=== PATIENT | male | born 1955 | race Caucasian/White ===

== ENCOUNTER 2020-07-15 15:32 | Outpatient (REF) | payer OTHER, SELFPAY ==
[2020-07-15 16:11] LABS: Glucose Urine UA NEG (NEG); Leukocyte Esterase Urine TRACE (NEG); Nitrite Urine NEG (NEG); Specific Gravity - Urine 1.015 (1.005-1.025); Urine Blood NEG (NEG); Urine Ketones NEG (NEG); Urine Protein NEG (NEG-TRACE)
[2020-07-15 16:12] LABS: Appearance Urine CLEAR; Color Urine YELLOW
[2020-07-15 16:24] LABS: Bacteria Urine TRACE /LPF; RBC Urine 0 /HPF (0); WBC Urine 0-2 /HPF (0-4)
== END 2020-07-15 15:33 | disposition home or self-care (01) ==
LOC: HO.LAB 15:32
PROVIDERS: PCP Internal Medicine; Visit Provider Internal Medicine
DX: R30.0 Dysuria (principal)
CPT/HCPCS: 81001; 87086

== ENCOUNTER 2021-03-05 06:21 | Outpatient (REF) | payer OTHER, SELFPAY ==
[2021-03-05 07:20] LABS: MANUAL DIFF FLAG NO
[2021-03-05 07:24] LABS: Basophils Percent Auto 0.6 % (0-2); Eosinophils Absolute Auto 0.2 X10*3/uL (0.0-0.4); Eosinophils Percent Auto 2.7 % (0-4); Hemoglobin 13.9 g/dl (14.0-18.0); Imm Gran Abs Auto 0.02 X10*3/uL (0.00-0.03); Imm Gran Pct Auto 0.3 % (0.0-0.4); Lymphocytes Absolute Auto 1.6 X10*3/uL (1.2-4.9); Lymphocytes Percent Auto 23.6 % (20-40); Mean Corpuscular HGB Conc 32.3 g/dl (31.0-36.0); Mean Corpuscular Hemoglobin 27.9 pg (27.0-33.0); Mean Corpuscular Volume 86.3 fL (80-98); Mean Platelet Volume 9.7 fL (9.4-12.4); Monocytes Absolute Auto 0.7 X10*3/uL (0.1-1.2); Monocytes Percent Auto 9.7 % (2-11); Neutrophils Absolute Auto 4.3 X10*3/uL (2.0-8.3); Neutrophils Percent Auto 63.1 % (45-73); Platelet Count 309 X10*3/uL (160-400); Red Blood Count 4.98 X10*6/uL (4.60-5.80); Red Cell Distribution Width 14.3 % (11.0-16.0); White Blood Count 6.8 X10*3/uL (4.8-10.8)
[2021-03-05 07:47] LABS: Alanine Aminotransferase 21 U/L (0-40); Albumin Level 4.2 g/dL (3.5-5.0); Alkaline Phosphatase 72 U/L (39-117); Anion Gap 14 (12-20); Aspartate Amino Transferase 17 U/L (5-37); Bilirubin Total 0.5 mg/dL (0.0-1.0); Blood Urea Nitrogen 18 mg/dL (9-16); Calcium 9.5 mg/dL (8.4-10.2); Carbon Dioxide 24 mmol/L (22-29); Chloride 107 mmol/L (96-108); Cholesterol 175 mg/dL; Estimated Glomerular Filt Rate > 60; Glucose Fasting 105 mg/dL (60-99); HDL Cholesterol 53 mg/dL; LDL Cholesterol Calculated 102 mg/dl; Sodium 140 mmol/L (135-145); Total Protein 6.7 g/dL (6.5-8.0); Triglycerides 103 mg/dL
== END 2021-03-05 06:22 | disposition home or self-care (01) ==
LOC: HO.LAB 06:21
PROVIDERS: Visit Provider Internal Medicine
DX: E78.00 Pure hypercholesterolemia, unspecified (principal); M19.042 Primary osteoarthritis, left hand; M19.041 Primary osteoarthritis, right hand
CPT/HCPCS: 36415; 80053; 80061; 85025

== ENCOUNTER 2021-08-02 14:43 | Outpatient (REF) | payer OTHER, SELFPAY ==
--- NOTE | ~2021-08-02 | XR_ITS ---
EXAMINATION: XR CERVICAL SPINE CLINICAL INFORMATION: Neck pain. Left arm numbness. COMPARISON: None TECHNIQUE: 5 views of the cervical spine were obtained. FINDINGS: No fracture or subluxation. Vertebral body height and alignment maintained. Mild disc space narrowing of C4-C5 and C5-C6 with small endplate osteophytes. No bony neuroforaminal narrowing. The atlantoaxial joint is appropriately aligned. The dens is intact. The prevertebral soft tissues are unremarkable. The visualized lung apices are clear. XR/XR cervical spine 5V IMPRESSION: Mild degenerative change of the mid cervical spine.
== END 2021-08-02 14:44 | disposition home or self-care (01) ==
LOC: HO.XRAY 14:43
PROVIDERS: PCP Internal Medicine; Visit Provider Internal Medicine
DX: M54.2 Cervicalgia (principal); R20.0 Anesthesia of skin
CPT/HCPCS: 72050

== ENCOUNTER 2021-10-25 08:28 | Emergency (ER) | payer OTHER, SELFPAY ==
--- NOTE | ~2021-10-25 | CT_ITS ---
EXAMINATION: CT ANGIOGRAM OF THE CHEST WITH AND WITHOUT CONTRAST (CT PULMONARY ANGIOGRAM FOR PE) CLINICAL INFORMATION: Right-sided pleuritic chest pain COMPARISON: CT chest 08/07/2013 TECHNIQUE: Prior to contrast administration, noncontrast localization images were obtained. Subsequently, multidetector volumetric imaging was performed from the thoracic inlet to below the diaphragms following the administration of 85 mL Omnipaque 350 intravenous contrast. Sagittal, coronal, and MIP oblique sagittal reformatted images were obtained on the CT workstation, uploaded to PACS, and reviewed. This CT examination was performed using dose optimization techniques as appropriate, variously including the following: *Automated exposure control *Adjustment of mA and/or kV according to patient size (this includes techniques or standardized protocols for targeted exams where dose is matched to indication/reason for exam; i.e. extremities or head) *Use of iterative reconstruction technique Total exam dose-length product 414 mGy-cm FINDINGS: QUALITY OF STUDY/CONTRAST BOLUS: Satisfactory. PULMONARY ARTERIES: No evidence of filling defects to suggest central or segmental pulmonary emboli. THORACIC AORTA: No aneurysm or dissection. LUNG: Emphysematous changes in bilateral lungs, more prominent in the upper lobes. Groundglass and patchy airspace opacities in the posterior aspect of bilateral lower lungs, from atelectasis versus inflammatory/infectious process. Trachea and central airway are patent. No suspicious pulmonary nodules are seen. PLEURA: No pleural effusion or pneumothorax. MEDIASTINUM: Normal heart size. No pericardial effusion. No hilar or mediastinal lymphadenopathy. No evidence of septal bowing or right heart strain. CHEST WALL/AXILLA: No axillary or internal mammary lymphadenopathy. OSSEOUS STRUCTURES: No acute or suspicious osseous abnormality. Degenerative changes in the subchondral right glenoid. No acute displaced fractures identified. Sternum and visualized clavicles appear intact. UPPER ABDOMEN: No acute findings seen. Colonic diverticulosis noted. No reflux of contrast into the hepatic veins to suggest elevated right heart pressures. CT/CT angio chest PE protocol IMPRESSION: 1. No evidence of filling defects to suggest central or segmental pulmonary emboli. 2. Prominent bilateral lung emphysema. 3. Groundglass and patchy airspace opacities in the posterior aspect of bilateral lower lungs, could reflect atelectasis or infectious/inflammatory process. VTE: negative
--- NOTE | 2021-10-25 08:37 | ECG_ITS ---
Test Reason : radiating chest pain Blood Pressure : / mmHG Vent. Rate : 079 BPM Atrial Rate : 079 BPM P-R Int : 192 ms QRS Dur : 088 ms QT Int : 376 ms P-R-T Axes : 061 037 040 degrees QTc Int : 431 ms Normal sinus rhythm Normal ECG When compared with ECG of 10-NOV-2017 12:56, No significant change was found Referred By: Generic ED Physician Electronically Signed By:Cleveland Aldrich
[2021-10-25 08:41] VITALS: BP 152/92; PULSE 79; RESP 20; TEMP 36.6; O2SAT 96; BMI 35.2
--- NOTE | 2021-10-25 08:50 | ED_ITS ---
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) Onset (ago): day(s) (3) Prior episodes: No Onset: during rest Pain location: right chest Pain radiation: back Severity: severe Quality: sharp Relieving factors: nothing Exacerbating factors: movement Associated symptoms: dyspnea Treatment prior to arrival: none Related Data Previous Rx's Medication Instructions Recorded doxycycline hyclate 100 mg tablet 100 mg PO BID #14 tab 09/28/20 azithromycin 250 mg tablet See Rx Instructions .ROUTE 10/25/21 .COMPLEX #6 tab cyclobenzaprine 10 mg tablet 10 mg PO TID PRN #14 tab 10/25/21 diazepam 5 mg tablet (Valium) 5 mg PO TID PRN #10 tab 10/25/21 lidocaine 4 % topical patch 1 patch TOPICAL DAILY PRN #10 ea 10/25/21 prednisone 20 mg tablet 20 mg PO DAILY 5 Days #5 tab 10/25/21 Allergies Allergy/AdvReac Type Severity Reaction Status Date / Time shrimp [SHRIMP] Allergy Unknown UNKNOWN Unverified 05/14/20 15:34 Review of Systems Review of Systems: Constitutional : No Weight loss, No Fever, No Chills ENT/Mouth : No sore throat, No Rhinorrhea Eyes: No Eye Pain, No Swelling Cardiovascular : pos Chest Pain, pos SOB, no Dyspnea on Exertion, No Orthopnea, No Edema, No Palpitations Respiratory : No Cough, No Sputum Gastrointestinal : no Nausea, No Vomiting, No Diarrhea, No abdominal Pain, No Hematochezia, No Melena Genitourinary : No Dysuria, No Urinary Frequency Musculoskeletal : No joint pain, No Myalgias, No Joint Swelling Skin : No Skin Lesions, No rash Neuro : No Weakness, No Numbness, No Dizziness, No Headache Psych : No Anxiety/Panic, No Depression Heme/Lymph: No Bruising, No Lymphadenopathy Endocrine : No Polyuria, No Polydipsia All other systems reviewed and are negative [facility] Past Medical History Attestation statement: The following information was validated with the patient. Medical History COPD (chronic obstructive pulmonary disease) Disc disorder of lumbar region DVT (deep venous thrombosis) Hypercholesteremia Prostate CA Skin cancer of face Surgical History (Updated 10/25/21 @ 08:48 by Bowen Patiño) Knee joint replacement status Social History Social History (Updated 10/25/21 @ 09:32 by Mary Gannon DO) Patient Tobacco Use Status: Tobacco use Unknown Advance Directives: Yes Advance Directives Information Provided: Yes Advance Directives on File: No Physical Exam Vital Signs: Vital Signs: Last Vital Signs Temp 98.1 F 10/25/21 11:10 Pulse 68 10/25/21 11:10 Resp 17 10/25/21 11:10 BP 130/78 10/25/21 11:10 Pulse Ox 97 10/25/21 11:10 BMI result Body Mass Index 35.2 Appearance: Alert. Oriented X3. No acute distress. Eyes: Pupils equal, round and reactive to light. ENT: Pharynx normal. Neck: Normal inspection. Neck supple. CVS: Normal heart rate and rhythm. Pulses normal. Respiratory: No respiratory distress. Breath sounds normal. Abdomen: Soft and nontender. Back: some ttp long R scapula area Skin: Skin warm and dry. Normal skin color. Normal skin turgor. Extremities: No lower extremity edema. No calf ttp Neuro: Oriented X 3. No motor deficit. No sensory deficit. Course Course Course Narrative: neg trop and EKG no PE will treat lungs for possible infectious with zpak and steroids stable for DC MDM - Chest Pain MDM Narrative Medical decision making narrative: 66 yo male hx of DVT 2017 only on xarelto x 1 month thought it was related to prior back injury (not post surery), COPD here with R sided sharp chest pain radiating into back - at this time will obtain basic labs, troponin, CTA to r/o PE. IV morphine for pain seems possibly MSK vs VTE ACS seems less likely given atypical nature of his pain Lab Data Result diagrams: 10/25/21 09:13 10/25/21 09:13 Labs: Lab Results 10/25/21 10/25/21 10/25/21 Range/Units 09:13 09:13 09:13 WBC 6.8 (4.8-10.8) X10*3/uL RBC 4.92 (4.60-5.80) X10*6/uL Hgb 14.1 (14.0-18.0) g/dl Hct 43.4 (42.0-52.0) % MCV 88.2 (80.0-98.0) fL MCH 28.7 (27.0-33.0) pg MCHC 32.5 (31.0-36.0) g/dl RDW 13.0 (11.0-16.0) % Plt Count 306 (160-400) X10*3/uL MPV 9.6 (9.4-12.4) fL Immature Gran % (Auto) 0.3 (0.0-0.4) % Neut % (Auto) 71.5 (45-73) % Lymph % (Auto) 17.7 L (20-40) % [place] % (Auto) 8.5 (2-11) % Eos % (Auto) 1.6 (0-4) % Baso % (Auto) 0.4 (0-2) % Lymph # (Auto) 1.2 (1.2-4.9) X10*3/uL [place] # (Auto) 0.6 (0.1-1.2) X10*3/uL Eos # (Auto) 0.1 (0.0-0.4) X10*3/uL Baso # (Auto) 0.0 (0.0-0.2) X10*3/uL Abs Immat Gran (auto) 0.02 (0.00-0.03) X10*3/uL Absolute Neuts (auto) 4.9 (2.0-8.3) x10*3/uL Absolute Nucleated RBC 0.000 (0.0-0.012) X10*3/uL Nucleated RBC % (auto) 0.0 (0.0-0.2) /100WBC PT 9.9 (9.9-13.0) SEC INR 0.9 (0.9-1.1) Sodium 141 (135-145) mmol/L Potassium 4.5 (3.3-5.1) mmol/L Chloride 110 H (96-108) mmol/L Carbon Dioxide 23 (22-29) mmol/L Anion Gap 13 (12-20) BUN 17 H (9-16) mg/dL Creatinine 1.07 (0.5-1.4) mg/dL Estim Creat Clear Calc 79.3 Estimated GFR > 60 Random Glucose 118 H (60-115) mg/dL Calcium 9.2 (8.4-10.2) mg/dL Magnesium 2.5 (1.6-2.6) mg/dL Total Bilirubin 0.4 (0.0-1.0) mg/dL Direct Bilirubin 0.2 (0.0-0.5) mg/dL AST 17 (5-37) U/L ALT 20 (0-40) U/L Alkaline Phosphatase 70 (39-117) U/L Troponin I High Sens (<3.5-35.0) ng/L Total Protein 6.4 L (6.5-8.0) g/dL Albumin 4.2 (3.5-5.0) g/dL COVID-19 (CYNDI) (Negative) COVID-19 Clin Com 10/25/21 10/25/21 Range/Units 09:13 11:06 WBC (4.8-10.8) X10*3/uL RBC (4.60-5.80) X10*6/uL Hgb (14.0-18.0) g/dl Hct (42.0-52.0) % MCV (80.0-98.0) fL MCH (27.0-33.0) pg MCHC (31.0-36.0) g/dl RDW (11.0-16.0) % Plt Count (160-400) X10*3/uL MPV (9.4-12.4) fL Immature Gran % (Auto) (0.0-0.4) % Neut % (Auto) (45-73) % Lymph % (Auto) (20-40) % [place] % (Auto) (2-11) % Eos % (Auto) (0-4) % Baso % (Auto) (0-2) % Lymph # (Auto) (1.2-4.9) X10*3/uL [place] # (Auto) (0.1-1.2) X10*3/uL Eos # (Auto) (0.0-0.4) X10*3/uL Baso # (Auto) (0.0-0.2) X10*3/uL Abs Immat Gran (auto) (0.00-0.03) X10*3/uL Absolute Neuts (auto) (2.0-8.3) x10*3/uL Absolute Nucleated RBC (0.0-0.012) X10*3/uL Nucleated RBC % (auto) (0.0-0.2) /100WBC PT (9.9-13.0) SEC INR (0.9-1.1) Sodium (135-145) mmol/L Potassium (3.3-5.1) mmol/L Chloride (96-108) mmol/L Carbon Dioxide (22-29) mmol/L Anion Gap (12-20) BUN (9-16) mg/dL Creatinine (0.5-1.4) mg/dL Estim Creat Clear Calc Estimated GFR Random Glucose (60-115) mg/dL Calcium (8.4-10.2) mg/dL Magnesium (1.6-2.6) mg/dL Total Bilirubin (0.0-1.0) mg/dL Direct Bilirubin (0.0-0.5) mg/dL AST (5-37) U/L ALT (0-40) U/L Alkaline Phosphatase (39-117) U/L Troponin I High Sens < 3.5 (<3.5-35.0) ng/L Total Protein (6.5-8.0) g/dL Albumin (3.5-5.0) g/dL COVID-19 (CYNDI) Negative (Negative) COVID-19 Clin Com See Note ECG Data ECG #1: Attestation: I personally reviewed and interpreted this ECG as follows: ECG interpretation date: 10/25/21 ECG interpretation time: 08:50 Interpretation: Rate: 79 Rhythm: NSR [place]: normal Normal P waves. Normal CRISTÓBAL. Normal QRS complex. ST T wave : normal no JULIENNE qTC: normal prior studies: no acute ischemia The study has been interpreted contemporaneously by me. . Discharge Plan Discharge Clinical Impression: Atypical chest pain, Atypical pneumonia Patient Disposition: Home, Self-Care Instructions: Chest Pain (ED), Pneumonia (ED) Additional Instructions: return to ED for any worsening symptoms or concerns no PE, COVID swab negative CT/CT angio chest PE protocol IMPRESSION: 1. No evidence of filling defects to suggest central or segmental pulmonary emboli. ? 2. Prominent bilateral lung emphysema. ? 3. Groundglass and patchy airspace opacities in the posterior aspect of bilateral lower lungs, could reflect atelectasis or infectious/inflammatory process. ? VTE: negative Prescriptions: New diazepam [Valium] 5 mg tablet 5 mg PO TID PRN (Reason: muscle spasm) Qty: 10 0RF cyclobenzaprine 10 mg tablet 10 mg PO TID PRN (Reason: muscle spasm) Qty: 14 0RF lidocaine 4 % adhesive patch,medicated 1 patch topical DAILY PRN (Reason: pain) Qty: 10 0RF Rx Instructions: may leave on for up to 12 hrs prednisone 20 mg tablet 20 mg PO DAILY 5 Days Qty: 5 0RF azithromycin 250 mg tablet See Rx Instructions .ROUTE .COMPLEX Qty: 6 0RF Rx Instructions: For 250 mg dose pack: take 500 mg today (day 1), then 250 mg for 4 days (days 2-5) No Action doxycycline hyclate 100 mg tablet 100 mg PO BID Qty: 14 0RF Referrals: Billy Santillan MD [Primary Care Provider] - 2 days (if not better) Stand Alone Forms: Work/School Release
[2021-10-25 09:19] LABS: MANUAL DIFF FLAG NO
[2021-10-25 09:29] LABS: Basophils Percent Auto 0.4 % (0-2); Eosinophils Absolute Auto 0.1 X10*3/uL (0.0-0.4); Eosinophils Percent Auto 1.6 % (0-4); Hematocrit 43.4 % (42.0-52.0); Hemoglobin 14.1 g/dl (14.0-18.0); Imm Gran Abs Auto 0.02 X10*3/uL (0.00-0.03); Imm Gran Pct Auto 0.3 % (0.0-0.4); Lymphocytes Absolute Auto 1.2 X10*3/uL (1.2-4.9); Lymphocytes Percent Auto 17.7 % (20-40); Mean Corpuscular HGB Conc 32.5 g/dl (31.0-36.0); Mean Corpuscular Hemoglobin 28.7 pg (27.0-33.0); Mean Corpuscular Volume 88.2 fL (80.0-98.0); Mean Platelet Volume 9.6 fL (9.4-12.4); Monocytes Absolute Auto 0.6 X10*3/uL (0.1-1.2); Monocytes Percent Auto 8.5 % (2-11); Neutrophils Absolute Auto 4.9 x10*3/uL (2.0-8.3); Neutrophils Percent Auto 71.5 % (45-73); Platelet Count 306 X10*3/uL (160-400); Red Blood Count 4.92 X10*6/uL (4.60-5.80); White Blood Count 6.8 X10*3/uL (4.8-10.8)
[2021-10-25 09:36] LABS: Alanine Aminotransferase 20 U/L (0-40); Albumin Level 4.2 g/dL (3.5-5.0); Alkaline Phosphatase 70 U/L (39-117); Anion Gap 13 (12-20); Aspartate Amino Transferase 17 U/L (5-37); Bilirubin Direct 0.2 mg/dL (0.0-0.5); Bilirubin Total 0.4 mg/dL (0.0-1.0); Blood Urea Nitrogen 17 mg/dL (9-16); Calcium 9.2 mg/dL (8.4-10.2); Carbon Dioxide 23 mmol/L (22-29); Chloride 110 mmol/L (96-108); Creatinine Clr Calc Pharmacy 79.3; Estimated Glomerular Filt Rate > 60; Glucose Random 118 mg/dL (60-115); Magnesium 2.5 mg/dL (1.6-2.6); Potassium 4.5 mmol/L (3.3-5.1); Sodium 141 mmol/L (135-145); Total Protein 6.4 g/dL (6.5-8.0)
[2021-10-25 09:39] LABS: INTERNATIONAL NORM RATIO 0.9 (0.9-1.1); Prothrombin Time 9.9 SEC (9.9-13.0)
[2021-10-25 09:40] LABS: Troponin-I High Sensitivity < 3.5 ng/L (<3.5-35.0)
[2021-10-25] MEDS: iohexoL 350 MG/ML 100 ML INFUS..BTL IV (10:10)
[2021-10-25 11:10] VITALS: BP 130/78; PULSE 68; RESP 17; TEMP 36.7; O2SAT 97
[2021-10-25 11:33] LABS: COVID-19 Test Negative (Negative)
== END 2021-10-25 12:08 | disposition home or self-care (01) ==
PROVIDERS: Emergency Provider Emergency Medicine; PCP Internal Medicine
DX: R07.89 Other chest pain (principal); J18.9 Pneumonia, unspecified organism; Z20.822 Contact with and (suspected) exposure to COVID-19; Z85.46 Personal history of malignant neoplasm of prostate; Z86.718 Personal history of other venous thrombosis and embolism
CPT/HCPCS: 36415; 71275; 80048; 80076; 83735; 84484; 85025; 85610; 87635; 93005; 96374; 96375; 99283; 99284; Q9967

== ENCOUNTER 2021-11-19 07:58 | Outpatient (REF) | payer OTHER, SELFPAY ==
--- NOTE | 2021-11-19 | PFT_ITS ---
FLOWS: FEV1 103% of predicted at 3.17 L. FVC 122% of predicted at 5.02 L. FEV1 to FVC ratio of 0.63. No bronchodilator response. LUNG VOLUMES: Total lung capacity 118% of predicted at 7.59 L. Residual volume 122% of predicted at 2.68 L. Slow vital capacity 116% of predicted at 4.91 L. Expiratory reserve volume 101% of predicted at 1.16 L. Diffusion capacity is mildly decreased. IMPRESSION: Mild obstructive ventilatory defect with no bronchodilator response. Increased residual volume suggests air trapping. Decreased diffusion capacity suggests emphysema. Jagdeep Jarrett MD AP/MODL / [id number]
== END 2021-11-19 07:59 | disposition home or self-care (01) ==
LOC: HO.RESP 07:58
PROVIDERS: PCP Internal Medicine; Visit Provider Internal Medicine
DX: J44.9 Chronic obstructive pulmonary disease, unspecified (principal)
CPT/HCPCS: 94060; 94727; 94729

== ENCOUNTER 2022-01-26 15:50 | Outpatient (REF) | payer MEDICARE, SELFPAY ==
--- NOTE | ~2022-01-26 | MR_ITS ---
EXAMINATION: MR CERVICAL SPINE WITHOUT CONTRAST CLINICAL INFORMATION: Cervalgia. Paresthesias. Left arm numbness. COMPARISON: Cervical spine radiograph 08/02/2021. TECHNIQUE: MRI of the cervical spine was obtained using routine sequences without contrast. FINDINGS: VERTEBRAL BODIES AND PARASPINAL SOFT TISSUES: Straightening of the normal cervical lordosis stenosis is noted. CERVICOMEDULLARY JUNCTION AND VISUALIZED POSTERIOR FOSSA: Normal. SPINAL LEVELS: C2-C3: Mild central stenosis. Mild left foraminal stenosis. Findings arise secondary to 2 mild posterior broad-based disc-osteophyte complex partially effacing the ventral thecal sac CSF space. Moderate-marked left facet hypertrophic changes. C3-C4: Mild bilateral foraminal stenoses. Mild central stenosis. Findings arise secondary to a mild posterior broad-based disc-osteophyte complex in association with moderate bilateral facet hypertrophy. C4-C5: Moderate-marked left foraminal stenosis. Moderate central stenosis. Mild right foraminal stenosis. Findings are present in association with a moderate posterior broad-based disc-osteophyte complex with focally prominent incorporation of the left uncovertebral joint. Approximately 50-75% left foraminal stenosis is noted. C5-C6: Marked left foraminal stenosis. Moderate central stenosis. Moderate right foraminal stenosis. Findings are present in the setting of a moderate posterior broad-based disc-osteophyte complex an overlying focally prominent left parasagittal and intraforaminal disc-osteophyte complex with 75% or more left foraminal narrowing and probable left C6 nerve root impingement. Partial effacement of the ventral thecal sac CSF space is noted without associated adjacent spinal cord signal abnormality. Moderate left facet hypertrophic changes. C6-C7: Mild central stenosis secondary to a mild posterior broad-based disc-osteophyte complex. C7-T1: No central or foraminal stenoses. MR/MR cervical spine wo con IMPRESSION: *C5-C6 marked left foraminal stenosis with left C6 nerve root impingement. *C4-C5 moderate left foraminal stenosis with possible left C5 nerve root impingement. *Elsewhere within the cervical spine, moderate multilevel chronic spondylosis is identified without associated marked central or foraminal stenoses.
== END 2022-01-26 15:51 | disposition home or self-care (01) ==
LOC: HO.MRI 15:50
PROVIDERS: Visit Provider Internal Medicine
DX: M54.2 Cervicalgia (principal); R20.2 Paresthesia of skin
CPT/HCPCS: 72141

== ENCOUNTER 2022-05-10 09:47 | Outpatient (REF) | payer MEDICARE, SELFPAY ==
[2022-05-10 09:59] LABS: MANUAL DIFF FLAG NO
[2022-05-10 10:45] LABS: Basophils Percent Auto 0.5 % (0-2); Eosinophils Absolute Auto 0.1 X10*3/uL (0.0-0.4); Eosinophils Percent Auto 1.8 % (0-4); Hematocrit 44.3 % (42.0-52.0); Hemoglobin 14.8 g/dl (14.0-18.0); Imm Gran Abs Auto 0.03 X10*3/uL (0.00-0.03); Imm Gran Pct Auto 0.4 % (0.0-0.4); Lymphocytes Absolute Auto 1.2 X10*3/uL (1.2-4.9); Lymphocytes Percent Auto 16.8 % (20-40); Mean Corpuscular HGB Conc 33.4 g/dl (31.0-36.0); Mean Corpuscular Hemoglobin 29.2 pg (27.0-33.0); Mean Corpuscular Volume 87.5 fL (80.0-98.0); Mean Platelet Volume 9.9 fL (9.4-12.4); Monocytes Absolute Auto 0.7 X10*3/uL (0.1-1.2); Monocytes Percent Auto 9.6 % (2-11); Neutrophils Absolute Auto 5.2 x10*3/uL (2.0-8.3); Neutrophils Percent Auto 70.9 % (45-73); Platelet Count 316 X10*3/uL (160-400); Red Blood Count 5.06 X10*6/uL (4.60-5.80); White Blood Count 7.4 X10*3/uL (4.8-10.8)
[2022-05-10 11:16] LABS: Alanine Aminotransferase 20 U/L (0-40); Albumin Level 4.3 g/dL (3.5-5.0); Alkaline Phosphatase 76 U/L (39-117); Anion Gap 16 (12-20); Aspartate Amino Transferase 18 U/L (5-37); Bilirubin Total 0.6 mg/dL (0.0-1.0); Blood Urea Nitrogen 14 mg/dL (9-16); Calcium 9.4 mg/dL (8.4-10.2); Carbon Dioxide 24 mmol/L (22-29); Chloride 104 mmol/L (96-108); Cholesterol 192 mg/dL; Estimated Glomerular Filt Rate > 60; Glucose Random 102 mg/dL (60-115); HDL Cholesterol 47 mg/dL; LDL Cholesterol Calculated 122 mg/dl; Potassium 4.7 mmol/L (3.3-5.1); Sodium 139 mmol/L (135-145); Total Protein 6.9 g/dL (6.5-8.0); Triglycerides 115 mg/dL
== END 2022-05-10 09:48 | disposition home or self-care (01) ==
LOC: HO.LAB 09:47
PROVIDERS: PCP Internal Medicine; Visit Provider Internal Medicine
DX: E78.00 Pure hypercholesterolemia, unspecified (principal); J44.9 Chronic obstructive pulmonary disease, unspecified; M19.90 Unspecified osteoarthritis, unspecified site
CPT/HCPCS: 36415; 80053; 80061; 85025

== ENCOUNTER 2022-08-09 05:45 | Emergency (ER) | payer MEDICARE, SELFPAY ==
--- NOTE | ~2022-08-09 | XR_ITS ---
EXAMINATION: XR WRIST, LEFT CLINICAL INFORMATION: Pain COMPARISON: None TECHNIQUE: 4 views of the left wrist. FINDINGS: There is mild loss of first carpometacarpal joint space with periarticular spurring. No visible acute fracture, dislocation or subluxation seen. There is widening of scapholunate distance suggestive of ligament tear or injury. The soft tissues are normal. XR/XR wrist LT min 3V IMPRESSION: Mild degenerative changes first carpometacarpal joint. No visible acute fracture or dislocation seen. Widening of scapholunate distance suggestive of ligament tear or injury. If patient has pain in this region further evaluation with outpatient MRI wrist can be helpful.
[2022-08-09 05:48] VITALS: BP 138/85; PULSE 88; RESP 18; TEMP 36.7; O2SAT 97; BMI 35.5
--- OUTSIDE RECORDS SUMMARY | 2022-08-09 06:12 | XMS_ITS | Continuity of Care Document ---
:1955 Author Organization [facility] Address [address] [place] [id number]- Care Team Providers Name Role Phone Billy Santillan MD Primary Care Physician [place] [facility] [place]19 - 10/21/19 [facility] [address] [place] [address]- [facility] Attending Physician: Jaja Sanchez Admitting Physician: Jaja Sanchez Referring Physician: AdmtrJaja Allergies, Adverse Reactions, Alerts Substance Reaction Severity Status Shrimp Active Immunizations Given and Recorded Vaccine Date Status Refusal Reason pneumococcal 23-valent vaccine 02/13/17 Given Medications Aspirin Tablet Refills 0, Maintenance, 03/23/17 13:40:40 Start Date: 03/23/17 Status: Orderedatorvastatin 20 mg oral tablet 1 tablet = 20 mg, By Mouth, Daily, # 30 tablet, 0 Refills, Maintenance, 10/11/19 16:58:00 EST, Tablet Start Date: 10/11/19 Status: Ordered Social History Social History Type Response Smoking Status Former smoker entered on: 12/26/13 Sex
--- OUTSIDE RECORDS SUMMARY | 2022-08-09 06:12 | XMS_ITS | Continuity of Care Document ---
:1955 Author Organization [facility] Address [address] [place] [id number]- Care Team Providers Name Role Phone Billy Santillan MD Primary Care Physician [place] [facility] [place] - 06/12/[address] [id number] Attending Physician: Jaja Sanchez Admitting Physician: AdmJaja richardson Referring Physician: AdmtrJaja Allergies, Adverse Reactions, Alerts Substance Reaction Severity Status Shrimp Active iodine Active Immunizations Given and Recorded Vaccine Date Status Refusal Reason pneumococcal 23-valent vaccine 02/13/17 Given Medications albuterol inhaler (OP) 0 Refills, Maintenance Start Date: 05/09/22 Status: OrderedAspirin Tablet Refills 0, Maintenance, 03/23/17 13:40:40 Start Date: 03/23/17 Status: Orderedatorvastatin 20 mg oral tablet 1 tablet = 20 mg, By Mouth, Daily, # 30 tablet, 0 Refills, Maintenance, 10/11/19 16:58:00 EST, Tablet Start Date: 10/11/19 Status: Orderedoxybutynin 15 mg/24 hr oral tablet, extended release 1 tablet = 15 mg, By Mouth, Daily, 0 Refills, Maintenance, 11/07/20 8:54:00 EST, ER Tablet, Partial fill upon patient request if the prescription is for a schedule II opioid drug. Start Date: 11/07/20 Status: Orderedrivaroxaban 10 mg oral tablet 1 tablet = 10 mg, By Mouth, Daily, # 30 tablet, 0 Refills, Maintenance, 11/07/20 8:51:00 EST, Tablet, [facility], Partial fill upon patient request if the prescription is for a schedule II opioid drug., 170.1, cm, 11/07/20 7:06:00 EST, H... Start Date: 11/07/20 Status: Ordered Problem List Condition Confirmation Course Effective Dates Status Health Stat us Informant Obese class II Confirmed Active Social History Social History Type Response Smoking Status Former smoker entered on: 12/26/13 Sex Patient Care team information PersonnelName: Billy Santillan MD Address: Address: [address] [place] [address]
--- OUTSIDE RECORDS SUMMARY | 2022-08-09 06:12 | XMS_ITS | Continuity of Care Document ---
:1955 Author Organization [facility] Address [address] [place] [id number]- Care Team Providers Name Role Phone Billy Santillan MD Primary Care Physician Encounter [facility] [place] Date(s): 10/29/19 - 10/29/[address] [address]- [facility] Discharge Disposition: A-D/C Home Attending Physician: Javed Knight MD Admitting Physician: Javed Knight MD Referring Physician: Amador Shay MD Allergies, Adverse Reactions, Alerts Substance Reaction Severity [...] EST, Tablet Start Date: 10/11/19 Status: Ordered Vital Signs Most recent to oldest [Reference Range]: 1 Height 172.0 cm (10/29/19 8:48 AM) Weight 103 kg (10/29/19 8:48 AM) Dry Weight 103 kg (10/29/19 8:48 AM) Weight Obtained Via Patient/family stated (10/29/19 8:48 AM) Dry Weight Obtained Via Patient/family stated (10/29/19 8:48 AM) Social History Social History Type Response Smoking Status Former smoker entered on: 12/26/13 Sex
--- OUTSIDE RECORDS SUMMARY | 2022-08-09 06:12 | XMS_ITS | Continuity of Care Document ---
:1955 Author Organization [facility] Address [address] [place] [address]- Care Team Providers Name Role Phone Billy Santillan MD Primary Care Physician Encounter 11/08/20 - 11/18/20 [facility] [address] [place] [phone]- Discharge Disposition: GOALS MET Allergies, Adverse Reactions, Alerts Substance Reaction Severity Status Shrimp Active iodine Active Immunizations Given and Recorded Vaccine Date Status Refusal Reason pneumococcal 23-valent vaccine 02/13/17 Given Medications acetaminophen 325 mg oral tablet 650 mg, By Mouth, Every 6 hours, December ttake OTC not to exceed 3000 mg/day, Refills 0, Maintenance, 11/07/20 8:52:00 EST, Partial fill upon patient request if the prescription is for a schedule II opioiddrug. Start Date: 11/07/20 Status: OrderedAspirin Tablet Refills 0, Maintenance, 03/23/17 13:40:40 Start Date: 03/23/17 Status: Orderedatorvastatin 20 mg oral tablet 1 tablet = 20 mg, By Mouth, Daily, # 30 tablet, 0 Refills, Maintenance, 10/11/19 16:58:00 EST, Tablet Start Date: 10/11/19 Status: Orderedbaclofen 10 mg oral tablet 10 mg, 1, tablet, By Mouth, 3 times a day, PRN, # 60 tablet, Refills 0, Tot. Refills 0, Maintenance,Spasm, 11/07/20 8:50:00 EST, Route to Pharmacy Electronically, [facility], Partial fill upon patient request if the prescription is for... Start Date: 11/07/20 Status: Orderedcelecoxib 200 mg oral capsule 1 capsule = 200 mg, By Mouth, Daily in AM, 0 Refills, Maintenance, 11/07/20 8:52:00 EST, Capsule, Partial fill upon patient request if the prescription is for a schedule II opioid drug. Start Date: 11/07/20 Status: OrderedColace Capsule 100 mg, 1, capsule, By Mouth, 2 times a day, Refills 0, Maintenance, 11/07/20 8:52:00 EST, Partial fill upon patient request if the prescription is for a schedule II opioid drug. Start Date: 11/07/20 Status: OrderedFlomax 0.4 mg oral capsule 0.4 mg, 1, capsule, By Mouth, Daily, Refills 0, Maintenance, 11/07/20 8:53:00 EST, Partial fill uponpatient request if the prescription is for a schedule II opioid drug. Start Date: 11/07/20 Status: OrderedMiraLax Powder 1 pack/packet = 17 Gm, By Mouth, Daily, PRN Constipation, 0 Refills, Maintenance, 11/07/20 8:52:00 EST, Powder, Partial fill upon patient request if the prescription is for a schedule II opioid drug. Start Date: 11/07/20 Status: Orderedoxybutynin 15 mg/24 hr oral tablet, extended release 1 tablet = 15 mg, By Mouth, Daily, 0 Refills, Maintenance, 11/07/20 8:54:00 EST, ER Tablet, Partial fill upon patient request if the prescription is for a schedule II opioid drug. Start Date: 11/07/20 Status: Orderedpantoprazole 40 mg oral delayed release tablet = 40 mg, By Mouth, Daily in AM, 0 Refills, Maintenance, 11/07/20 8:52:00 EST, EC Tablet Start Date: 11/07/20 Status: Orderedrivaroxaban 10 mg oral tablet 1 tablet = 10 mg, By Mouth, Daily, # 30 tablet, 0 Refills, Maintenance, 11/07/20 8:51:00 EST, Tablet, [facility], Partial fill upon patient request if the prescription is for a schedule II opioid drug., 170.1, cm, 11/07/20 7:06:00 EST, H... Start Date: 11/07/20 Status: Orderedsenna 187 mg oral tablet 1 tablet = 8.6 mg, By Mouth, Daily at bedtime, PRN as needed for constipation, 0 Refills, Maintenance, 11/07/20 8:52:00 EST, Tablet, Partial fill upon patient request if the prescription is for a schedule II opioid drug. Start Date: 11/07/20 Status: Ordered Social History Social History Type Response Smoking Status Former smoker entered on: 12/26/13 Sex
--- OUTSIDE RECORDS SUMMARY | 2022-08-09 06:12 | XMS_ITS | Continuity of Care Document ---
:1955 Author Organization [address], [address] [place] [address]- Care Team Providers Name Role Phone Billy Santillan MD Primary Care Physician Encounter [facility] [place] Date(s): 03/28/22 - 04/27/[address], [address] [place], [place] [address] Allergies, Adverse Reactions, Alerts Substance Reaction Severity [...] 11/07/20 8:50:00 EST, Route to Pharmacy Electronically, [facility], Partial fill upon patient [...] 0 Refills, Maintenance, 11/07/20 8:51:00 EST, Tablet, [facility] 3, Partial fill upon patient request if [...] opioid drug. Start Date: 11/07/20 Status: Ordered Problem List Condition Effective Dates Status Health Status Informant Obese class I(Confirmed) Active Social History Social History Type Response Smoking Status Former smoker entered on: 12/26/13 Sex Care Team PersonnelName: Billy Santillan MD Address: [address] [place] [address] Billy García, [place] [address]
--- OUTSIDE RECORDS SUMMARY | 2022-08-09 06:12 | XMS_ITS | Continuity of Care Document ---
:1955 Author Organization [facility] Address [address] [place] [address]- Care Team Providers Name Role Phone Billy Santillan MD Primary Care Physician [place] [facility] [place](s): 06/14/22 - 07/14/22 [facility] [address] [place] [address]- Attending Physician: Jaja Sanchez Admitting Physician: Jaja [...] on: 12/26/13 Sex Patient Care team information Care Team PersonnelName: Billy Santillan MD Position: S Outreach Member Role: PCP Address: Address: [address] [place] [address]- Name: Sofi White RN Position: [facility] SN RN Member Role: Primary Care Nurse Name: Marisel Varma RN Position: [facility] RN Member Role: Primary Care Nurse Name: Ghada Gibson RN Position: [facility] RN Member Role: Primary Care Nurse Name: Thien Philip RN Position: [facility] RN Member Role: Primary Care Nurse Name: Betzaida Flynn RN Position: [facility] RN Member Role: Primary Care Nurse Care Team Related PersonsName: JAYA SIMMONS Address: home [address] [place] [address] Name: LINN MARTI Name: ANGELLA ALVAREZ Address: home [address] [place] [address]
--- OUTSIDE RECORDS SUMMARY | 2022-08-09 06:12 | XMS_ITS | Continuity of Care Document ---
:1955 Author Organization [facility] Address [address] [place] [address]- Care Team Providers Name Role Phone Billy Santillan MD Primary Care Physician Encounter [facility] [place] Date(s): 03/15/22 - 04/14/[address] [address] Attending Physician: Teofilo Mandujano MD Admitting Physician: Teofilo Mandujano MD Allergies, Adverse Reactions, Alerts Substance Reaction Severity Status Shrimp Active iodine Active Immunizations Given and Recorded Vaccine Date Status Refusal Reason pneumococcal 23-valent vaccine 02/13/17 Given Medications acetaminophen 325 mg oral tablet 650 mg, By Mouth, Every 6 hours, December tta OTC not to exceed 3000 mg/day, Refills [...] 11/07/20 8:50:00 EST, Route to Pharmacy Electronically, [facility], Partial fill upon [...] 0 Refills, Maintenance, 11/07/20 8:51:00 EST, Tablet, [facility] 3, Partial fill upon patient request if [...]
--- OUTSIDE RECORDS SUMMARY | 2022-08-09 06:12 | XMS_ITS | Continuity of Care Document ---
:1955 Author Organization [facility] Address [address] [place] [address]- Care Team Providers Name Role Phone Billy Santillan MD Primary Care Physician [place] [facility] [place] 10[place]11/19 - 10/18/19 [facility] [address] [place] [address]- [facility] Attending Physician: Javed Knight MD Admitting Physician: [...] oldest [Reference Range]: 1 Height 172.0 cm (10/11/19 4:56 PM) Weight 103 kg (10/11/19 4:56 PM) Pulse Rate [55-90 bpm] 81 bpm (10/11/19 4:56 PM) Body Mass Index [18.5-24.99] 34.82 *>HHI* (10/11/19 4:56 PM) Blood Pressure [90-138/55-84 mm Hg] 150/100 mm Hg *H* (10/11/19 4:56 PM) Blood pressure sites Arm, left (10/11/19 4:56 PM) Weight Obtained Via Patient/family stated (10/11/19 4:56 PM) Social History Social History Type Response Smoking Status Former smoker entered on: 12/26/13 Sex
--- OUTSIDE RECORDS SUMMARY | 2022-08-09 06:12 | XMS_ITS | Continuity of Care Document ---
:1955 Author Organization [facility] Address [address] [place] [address]- Care Team Providers Name Role Phone Billy Sanitllan MD Primary Care Physician En[place] [facility] [place] Date(s): 03/23/22 - 04/22/22 [facility] [address] [place], [place] [address] Attending Physician: Jaja Sanchez Admitting Physician: Jaja [...] 11/07/20 8:50:00 EST, Route to Pharmacy Electronically, [facility], Partial fill upon patient request if [...] 0 Refills, Maintenance, 11/07/20 8:51:00 EST, Tablet, [facility], Partial fill upon patient request if [...] Care Team PersonnelName: Billy Santillan MD Address: [address] [place] [address] [place], [place] [address]
--- OUTSIDE RECORDS SUMMARY | 2022-08-09 06:12 | XMS_ITS | Continuity of Care Document ---
:1955 Author Organization [facility] Address [address] [place] [address]- Care Team Providers Name Role Phone Billy Santillan MD Primary Care Physician [place] [facility] [place] 03/15/22 - 04/22/22 [facility] [address] [place] [address] Attending Physician: Richar Alonzo MD Admitting Physician: Richar Alonzo MD Referring Physician: Teofilo Mandujano MD Allergies, Adverse Reactions, Alerts Substance Reaction Severity Status Shrimp Active iodine Active Immunizations Given and Recorded Vaccine Date Status Refusal Reason pneumococcal 23-valent vaccine 02/13/17 Given Medications acetaminophen 325 mg oral tablet 650 mg, By Mouth, Every 6 hours, Decemberke OTC not to exceed 3000 mg/day, Refills [...] 11/07/20 8:50:00 EST, Route to Pharmacy Electronically, [facility] 3, Partial fill upon patient request [...] 0 Refills, Maintenance, 11/07/20 8:51:00 EST, Tablet, [facility] 3, Partial fill upon patient request [...] Care Team PersonnelName: Billy Santillan MD Address: [address] [place] [address] [place] [address]-
--- OUTSIDE RECORDS SUMMARY | 2022-08-09 06:12 | XMS_ITS | Continuity of Care Document ---
:1955 Author Organization [facility] Address [address] [place] [address]- Care Team Providers Name Role Phone Billy Santillan MD Primary Care Physician Encounter [facility] [place] Date(s): 10/29/20 - 11/28/20 [facility] [address] [place] [address]- Attending Physician: Jaja Sanchez Admitting Physician: AdmJaja [...] 11/07/20 8:50:00 EST, Route to Pharmacy Electronically, [facility], Partial fill upon patient [...] 0 Refills, Maintenance, 11/07/20 8:51:00 EST, Tablet, [facility] 3, Partial fill upon patient request [...]
--- OUTSIDE RECORDS SUMMARY | 2022-08-09 06:12 | XMS_ITS | Continuity of Care Document ---
:1955 Author Organization [facility] Address [address] [place] [address]- Care Team Providers Name Role Phone Billy Santillan MD Primary Care Physician Encounter [facility] [place] Date(s): 10/27/20 - 11/26/[address] [address]- Attending Physician: Jaja Sanchez Admitting Physician: Jaja [...] 11/07/20 8:50:00 EST, Route to Pharmacy Electronically, [facility], Partial fill upon patient [...] 0 Refills, Maintenance, 11/07/20 8:51:00 EST, Tablet, [facility], Partial fill upon patient request if [...]
--- OUTSIDE RECORDS SUMMARY | 2022-08-09 06:12 | XMS_ITS | Continuity of Care Document ---
:1955 Author Organization [facility] Address [address] [place] [address]- Care Team Providers Name Role Phone Billy Santillan MD Primary Care Physician [place] [facility] [place] 11/06/20 - 11/07/[address] [address] Discharge Disposition: A-Transfer VNA/Home Health Attending Physician: Choco Aguilar MD Admitting Physician: Choco Aguilar MD Referring Physician: Choco Aguilar MD Allergies, Adverse Reactions, Alerts Substance Reaction [...] schedule II opioiddrug. Start Date: 11/07/20 Status: OrderedAcetaminophen Tablet 650 mg, Tablet, By Mouth, 11/07/20 12:00:00 EST Start Date: 11/07/20 Stop Date: 11/07/20 Status: CompletedAspirin Tablet Refills 0, Maintenance, 03/23/17 13:40:40 Start [...] 11/07/20 8:50:00 EST, Route to Pharmacy Electronically, [facility], Partial fill upon patient request [...] II opioid drug. Start Date: 11/07/20 Status: OrderedoxyCODONE 5 mg oral tablet 5 mg, Tablet, By Mouth, Every 4 hours, PRN for Pain , Moderate, Routine, 11/07/20 7:24:00 EST Start Date: 11/07/20 Stop Date: 11/07/20 Status: DiscontinuedoxyCODONE 5 mg oral tablet See Instructions, PRN, Take 1-2 tablet By Mouth Every 4 hours as needed for pain, # 84 tablet, Refills 0, Tot. Refills 0, Acute 11/14/20 8:51:00 EDT, Pain , Moderate, 11/07/20 8:51:00 EST, InstructionsReplace Required Details, Route to Pharmacy Elect... Start Date: 11/07/20 Stop Date: 11/14/20 Status: Orderedpantoprazole 40 mg oral delayed release tablet = 40 mg, By Mouth, Daily in AM, 0 Refills, Maintenance, 11/07/20 8:52:00 EST, EC Tablet Start Date: 11/07/20 Status: Orderedrivaroxaban 10 mg oral tablet 1 tablet = 10 mg, By Mouth, Daily, # 30 tablet, 0 Refills, Maintenance, 11/07/20 8:51:00 EST, Tablet, [facility] 3, Partial fill upon patient request [...] opioid drug. Start Date: 11/07/20 Status: Ordered Results Radiology Reports Exam Date Time Procedure Performing Provider Status 11/06/20 10:37 PM Knee 1 or 2 Views Left [facility] (Verified) Notes:(Knee 1 or 2 Views Left) Reason For Exam: PostopRESULT: Knee 1 or 2 Views Left PROCEDURE: Knee 1 or 2 Views Left CLINICAL INDICATION: 65 years old Male with Reason: Postop; Clinical Question(s): Other:; Implant Position; Special Instructions: Do today at 2200, No flexed knee in the lateral position. Keep leg straight; 2 Views. COMPARISONS: None. FINDINGS: Status post total knee arthroplasty with normal alignment of the hardware. No acute fracture. Soft tissue swelling about the knee. No radiopaque foreign body in the soft tissues. IMPRESSION: 1. Status post total knee arthroplasty with no evidence of hardware failure or complication. Thank you for allowing me to participate in the care of this patient. WSN: [id number] Ordering Physician: Smiley Cota Dictated By: Winnie Gray MD Dictated Date/Time: 11/06/20 11:08 p Reviewed By: Winnie Gray MD Signed By: Winnie Gray MD Signed Date/Time: 11/06/20 11:08 pm Transcribed By: GIGI Transcribed Date/Time: 11/06/20 11:07 pm Vital Signs Most recent to oldest 1 2 3 [Reference Range]: Height 170.1 cm 170.1 cm 170.1 cm (11/07/20 7:06 AM) (11/07/20 3:09 AM) (11/06/20 11: 04 PM) Weight 93.6 kg 93.6 kg 93.6 kg (11/06/20 11:22 AM) (11/06/20 8:26 AM) (11/06/20 6: 43 AM) Oxygen Saturation [94-100 %] 96 % 95 % 95 % (11/07/20 7:06 AM) (11/07/20 3:09 AM) (11/06/20 11: 04 PM) Pulse Rate [55-90 bpm] 77 bpm 83 bpm 87 bpm (11/07/20 7:06 AM) (11/07/20 3:09 AM) (11/06/20 11: 04 PM) Body Mass Index [18.5-24.99] 32.35 32.35 *>HHI* *>HHI* (11/06/20 11:22 AM) (11/06/20 6:43 AM) Blood Pressure [90-138/55-84 129/88 mm Hg 117/63 mm Hg 115 /66 mm Hg mm Hg] (11/07/20 7:06 AM) (11/07/20 3:09 AM) (11/06/20 11: 04 PM) Respiratory Rate [16-30 17 br/min 18 br/min 17 br/mi n br/min] (11/07/20 1:01 PM) (11/07/20 1:01 PM) (11/07/20 12: 01 PM) Temperature [96.8-100.4 98.2 DegF 98.0 DegF 98.0 Deg F DegF] (11/07/20 7:06 AM) (11/07/20 3:09 AM) (11/06/20 11: 04 PM) Liters per Minute 2 L/min 2 L/min 2 L/min (11/06/20 3:30 PM) (11/06/20 3:00 PM) (11/06/20 2:4 5 PM) Mode of Delivery (Oxygen) Room air Room air Room a ir (11/07/20 7:06 AM) (11/07/20 3:09 AM) (11/06/20 11: 04 PM) Blood pressure sites Arm, left Arm, left Arm, left (11/07/20 3:09 AM) (11/06/20 11:04 PM) (11/06/20 6: 16 PM) Temperature Route Oral Oral Oral (11/07/20 7:06 AM) (11/07/20 3:09 AM) (11/06/20 11: 04 PM) Dry Weight 93.6 kg 93.6 kg (11/06/20 8:26 AM) (11/06/20 6:43 AM) Social History Social History Type Response Smoking Status Former smoker entered on: 12/26/13 Sex
--- OUTSIDE RECORDS SUMMARY | 2022-08-09 06:12 | XMS_ITS | Continuity of Care Document ---
:1955 Author Organization [facility] Address [address] [place] [address]- Care Team Providers Name Role Phone Billy Santillan MD Primary Care Physician [place] [facility] [place]05[place]19 - 03/02/20 [facility] [address] [address] [facility] Discharge Disposition: A-D/C Home Attending Physician: Amador Shay MD Admitting Physician: Amador Shay MD Referring Physician: Celestine Arriaga MD Allergies, Adverse Reactions, Alerts Substance Reaction [...] oldest [Reference Range]: 1 Height 172.0 cm (09/18/19 3:02 PM) Weight 103.1 kg (09/18/19 3:02 PM) Pulse Rate [55-90 bpm] 88 bpm (09/18/19 3:02 PM) Body Mass Index [18.5-24.99] 34.85 *>HHI* (09/18/19 3:02 PM) Blood Pressure [90-138/55-84 mm Hg] 149/70 mm Hg *H* (09/18/19 3:02 PM) Temperature [96.8-100.4 DegF] 97.8 DegF (09/18/19 3:02 PM) Blood pressure sites Arm, right (09/18/19 3:02 PM) Temperature Route Temporal (09/18/19 3:02 PM) Dry Weight 103.1 kg (09/18/19 3:02 PM) Weight Obtained Via Standing scale (09/18/19 3:02 PM) Dry Weight Obtained Via Standing scale (09/18/19 3:02 PM) Social History Social History Type Response Smoking Status Former smoker entered on: 12/26/13 Sex
--- OUTSIDE RECORDS SUMMARY | 2022-08-09 06:12 | XMS_ITS | Continuity of Care Document ---
:1955 Author Organization [address], [address] [place] [address]- Care Team Providers Name Role Phone Billy Santillan MD Primary Care Physician Encounter [facility] [place] Date(s): 02/10/22 - 03/12/[address], [address] [place], [place] [address] Allergies, Adverse Reactions, Alerts Substance Reaction Severity [...] 11/07/20 8:50:00 EST, Route to Pharmacy Electronically, [facility], Partial fill upon patient [...] 0 Refills, Maintenance, 11/07/20 8:51:00 EST, Tablet, [facility], Partial fill upon patient request [...]
--- OUTSIDE RECORDS SUMMARY | 2022-08-09 06:12 | XMS_ITS | Continuity of Care Document ---
:1955 Author Organization [facility] Address [address] [place] [address]- Care Team Providers Name Role Phone Billy Santillan MD Primary Care Physician Encounter [place] Date(s): 10/21/20 - 11/26/[address] [address] Attending Physician: Choco Aguilar MD Admitting Physician: [...] 0 Refills, Maintenance, 11/07/20 8:51:00 EST, Tablet, [facility] 3, Partial fill upon patient request if [...]
--- OUTSIDE RECORDS SUMMARY | 2022-08-09 06:12 | XMS_ITS | Continuity of Care Document ---
:1955 Author Organization [facility] Address [address] [place] [address]- Care Team Providers Name Role Phone Billy Santillan MD Primary Care Physician En[place] [facility] [place] Date(s): 09/05/19 - 09/15/19 [facility] [address] [place] [address] [facility] Attending Physician: Jaja Sanchez Admitting Physician: Jaja Sanchez Referring Physician: Jaja Sanchez Allergies, Adverse Reactions, Alerts Substance Reaction Severity Status Shrimp Active Immunizations Given and Recorded Vaccine Date Status Refusal Reason pneumococcal 23-valent vaccine 02/13/17 Given Medications acetaminophen 325 mg oral tablet 650 mg, By Mouth, Every 4 hours, PRN, Temperature Greater than 100.5, Refills 0, Maintenance, Headache Pain , Mild, 02/15/17 11:31:03 Start Date: 02/15/17 Status: Orderedacetaminophen-HYDROcodone 325 mg-5 mg oral tablet 1 tablet, By Mouth, 3 times a day, 0 Refills, Maintenance, 02/11/17 18:50:07 Start Date: 02/11/17 Status: OrderedAspirin Tablet Refills 0, Maintenance, 03/23/17 13:40:40 Start Date: 03/23/17 Status: Orderedgabapentin 300 mg oral capsule 300 mg, 1, capsule, By Mouth, 4 times a day Start Date: 02/11/17 Status: OrderedMisc Rx See Instructions, Refills 0, Maintenance, cannabis patch apply topically, 02/11/17 18:55:07, Compound Start Date: 02/11/17 Status: OrderedMisc Rx CBD cream ( marijuana cream with out THC), Topically, Refills 0, Maintenance, 02/11/17 18:56:49, Compound Start Date: 02/11/17 Status: Ordered Social History Social History Type Response Smoking Status Former smoker entered on: 12/26/13 Sex
--- OUTSIDE RECORDS SUMMARY | 2022-08-09 06:12 | XMS_ITS | Continuity of Care Document ---
:1955 Author Organization [facility] Address [address] [place] [address]- Care Team Providers Name Role Phone Billy Santillan MD Primary Care Physician Encounter [facility] [place] Date(s): 11/06/20 - 12/06/[address] [address] Attending Physician: Not on Staff, Attending MD Admitting Physician: Not on Staff, Admitting MD Referring Physician: Not on Staff, Referring MD Allergies, Adverse Reactions, Alerts Substance Reaction [...] 11/07/20 8:51:00 EST, Tablet, [facility] 3, Partial fill upon patient request [...]
--- OUTSIDE RECORDS SUMMARY | 2022-08-09 06:12 | XMS_ITS | Continuity of Care Document ---
:1955 Author Organization [address], [address] [place] [address]- Care Team Providers Name Role Phone Billy Santillan MD Primary Care Physician Encounter [facility] [place] Date(s): 02/10/22 - 04/09/[address], [address] [place], [place] [address] Attending Physician: Mirta Lomeli MD Referring Physician: Billy Santillan MD Allergies, Adverse Reactions, Alerts Substance Reaction [...] 11/07/20 8:50:00 EST, Route to Pharmacy Electronically, [facility], Partial fill upon patient [...] 0 Refills, Maintenance, 11/07/20 8:51:00 EST, Tablet, [facility] 3, Partial fill upon patient [...] Health Status Informant Obese class I(Confirmed) Active Vital Signs Most recent to oldest [Reference Range]: 1 Height 170.1 cm (03/10/22 1:23 PM) Weight 93 kg (03/10/22 1:23 PM) Body Mass Index [18.5-24.99] 32.14 *>HHI* (03/10/22 1:23 PM) Social History Social History Type Response Smoking Status Former smoker entered on: 12/26/13 Sex
--- OUTSIDE RECORDS SUMMARY | 2022-08-09 06:13 | XMS_ITS | Continuity of Care Document ---
:1955 Author Organization [address], [address] [place] [address]- Care Team Providers Name Role Phone Billy Santillan MD Primary Care Physician Encounter [facility] [place] Date(s): 03/15/22 - 06/03/[address], [address] [place], [place] [address] Attending Physician: Teofilo Mandujano MD Referring Physician: Billy Santillan MD Allergies, [...] 0 Refills, Maintenance, 11/07/20 8:51:00 EST, Tablet, [facility], Partial fill upon patient [...] PersonnelName: Billy Santillan MD Address: Address: [address] [place] [address]
--- OUTSIDE RECORDS SUMMARY | 2022-08-09 06:13 | XMS_ITS | Continuity of Care Document ---
:1955 Author Organization [address], [address] [place] [address]- Care Team Providers Name Role Phone Billy Santillan MD Primary Care Physician Encounter [facility] [place] Date(s): 05/04/22 - 06/03/[address], [address] [place], [place] [address] Attending Physician: Jaja Sanchez Admitting Physician: Admtr, Jaja Referring Physician: Admtr, Ar8 Allergies, Adverse Reactions, Alerts Substance Reaction Severity [...] 0 Refills, Maintenance, 11/07/20 8:51:00 EST, Tablet, [facility], Partial fill upon patient request [...] PersonnelName: Billy Santillan MD Address: Address: [address] [facility] [place]ía [place] [address]
--- OUTSIDE RECORDS SUMMARY | 2022-08-09 06:13 | XMS_ITS | Continuity of Care Document ---
:1955 Author Organization [address], [address] [place] [address]- Care Team Providers Name Role Phone Billy Santillan MD Primary Care Physician Encounter [facility] [place] Date(s): 03/14/22 - 03/21/[address], [address] [place], [place] [address] Attending Physician: Teofilo Mandujano MD Referring Physician: [...] 11/07/20 8:51:00 EST, Tablet, [facility], Partial fill upon patient request if [...] oldest [Reference Range]: 1 Height 170.1 cm (03/14/22 10:36 AM) Weight 93 kg (03/14/22 10:36 AM) Body Mass Index [18.5-24.99] 32.14 *>HHI* (03/14/22 10:36 AM) Social History Social History Type Response Smoking Status Former smoker entered on: 12/26/13 Sex
[2022-08-09 06:28] VITALS: BP 141/97; PULSE 84; RESP 20; TEMP 36.8; O2SAT 96
--- NOTE | 2022-08-09 06:35 | PC.NURSE ---
Pt's V/S are stable, pt is a/o x5, and independent. Pt came in presenting wrist pain/rash that begin on Monday night. Pt reports it painful to move his hand not allowing him to complete his ADLs. PT hand rash was cristhian, and will continue to monitor.
--- NOTE | 2022-08-09 07:02 | ED_ITS ---
HPI - Extremity Problem General Chief complaint: Extremity Problem Stated complaint: wrist pain Time Seen by Provider: 08/09/22 06:52 Source: patient Mode of arrival: ambulatory Limitations: no limitations History of Present Illness HPI Narrative: This is 67 years old male in no presented to the emergency department complaining of left hand pain times 3 days. Denies any trauma denies any fever chills. Complaint: extremity pain Onset (ago): day(s) (3) Location: left and upper extremity (hand/wrist) Severity scale (1-10): 3 Radiation: none Relieving factors: nothing Exacerbating factors: nothing Associated symptoms: denies other symptoms Related Data Previous Rx's Medication Instructions Recorded doxycycline hyclate 100 mg tablet 100 mg PO BID #14 tabs 09/28/20 azithromycin 250 mg tablet See Rx Instructions PO .COMPLEX #6 10/25/21 tabs cyclobenzaprine 10 mg tablet 10 mg PO TID PRN muscle spasm #14 10/25/21 tabs diazepam 5 mg tablet (Valium) 5 mg PO TID PRN muscle spasm #10 10/25/21 tabs lidocaine 4 % topical patch 1 patch topical DAILY PRN pain #10 10/25/21 ea prednisone 20 mg tablet 20 mg PO DAILY 5 days #5 tabs 10/25/21 cephalexin 500 mg capsule 500 mg PO Q8H 7 days #21 caps 08/09/22 naproxen 500 mg tablet (Naprosyn) 500 mg PO BID PRN PAIN #20 tabs 08/09/22 Allergies Allergy/AdvReac Type Severity Reaction Status Date / Time shrimp [SHRIMP] Allergy Unknown UNKNOWN Verified 08/09/22 05:46 Review of Systems Constitutional: Constitutional: Reports no additional constitutional complaints ENT: Reports system reviewed and no additional complaints, except as documented Cardiovascular: Cardiovascular: Reports no additional cardiovascular complaints Respiratory: Respiratory: Reports no additional respiratory complaints Gastrointestinal: Gastrointestinal: Reports no additional gastrointestinal complaints Neurologic: Reports system reviewed and no additional complaints, except as documented PMFSH Past Medical History Medical History COPD (chronic obstructive pulmonary disease) Disc disorder of lumbar region DVT (deep venous thrombosis) Hypercholesteremia Prostate CA Skin cancer of face Surgical History Knee joint replacement status Social History Social History Patient Tobacco Use Status: Tobacco use Unknown Smoked in Last 30 Days: No Use of substances other than those prescribed or required for medical reasons: No Advance Directives: No Advance Directives Information Provided: Yes Physical Exam Vital Signs: Vital Signs: Last Vital Signs Temp 97.9 F 08/09/22 08:04 Pulse 70 08/09/22 08:04 Resp 19 08/09/22 08:04 BP 121/73 08/09/22 08:04 Pulse Ox 96 08/09/22 08:04 O2 Del Method 08/09/22 08:04 BMI result Body Mass Index 35.5 He looks well he is no toxic-appearing he is sitting up in the chair Const: General: cooperative, healthy appearing, comfortable, no acute distress, well developed, alert and awake Nutritional Appearance: average body habitus Orientation/consciousness: patient oriented x3 Limitations: no limitations HEENT: Head: Yes normal to inspection Face and sinus: Yes normal facial exam Mouth: Normal oral and palatal mucosa present Throat: Yes posterior oropharynx normal Neck: Neck: Yes normal visual inspection and Yes full ROM Chest: Chest palpation & inspection: normal inspection of the chest Resp: Effort & Inspection: normal respiratory effort Auscultation: clear to auscultation bilaterally Cardio: Jugular venous distension: no JVD Rate: regular rate Rhythm: regular rhythm GI: Inspection: Yes normal to inspection Palpation (GI): Soft to palpation, not firm, nontender and no guarding Skin: General skin exam: elasticity normal and turgor normal Neuro: General: patient oriented x3 Extrem: Other: He has redness in the dorsal aspect of the left hand / wrist, he has decreased range of motion Course Reevaluation(s) Reevaluation #1: Remains stable no toxic-appearing white count is normal afebrile. Time: 08:23 Reevaluation #2: Uric acid is slightly elevated this could be also gout versus cellulitis i will discharge home on Keflex and anti-inflammatory medication Medications Administered Discontinued Medications Generic Name Dose Route Start Last Admin Trade Name Freq PRN Reason Stop Dose Admin Ceftriaxone Sodium 2 gm/ 50 mls @ 100 mls/hr 08/09/22 07:01 08/09/22 07:25 Sodium Chloride IV 08/09/22 07:30 100 mls/hr ONCE ONE Administration Medical Decision Making Medical Decision Making MDM Narrative: Patient presented with redness on the hand and wrist most likely represent cellulitis, he looks well he is not toxic, he is not a risk for MRSA, will give him dose of ceftriaxone check his white count blood culture Differential Diagnosis Differential Diagnoses: The differential diagnosis associated with the pr esentation includes Cellulitis versus gout Admission/Observation Consideration of admission/observation: Escalation of care including admission/observation considered Lab Data [facility] Lab Attestation statement: I reviewed the patient's lab results. Result Diagrams: 08/09/22 07:11 08/09/22 07:11 Labs: Lab Results 08/09/22 08/09/22 08/09/22 Range/Units 07:11 07:11 07:11 WBC 7.6 (4.8-10.8) X10*3/uL RBC 5.11 (4.60-5.80) X10*6/uL Hgb 15.2 (14.0-18.0) g/dl Hct 45.1 (42.0-52.0) % MCV 88.3 (80.0-98.0) fL MCH 29.7 (27.0-33.0) pg MCHC 33.7 (31.0-36.0) g/dl RDW 13.6 (11.0-16.0) % Plt Count 291 (160-400) X10*3/uL MPV 9.4 (9.4-12.4) fL Immature Gran % (Auto) 0.3 (0.0-0.4) % Neut % (Auto) 71.1 (45-73) % Lymph % (Auto) 16.8 L (20-40) % [place] % (Auto) 9.1 (2-11) % Eos % (Auto) 2.0 (0-4) % Baso % (Auto) 0.7 (0-2) % Lymph # (Auto) 1.3 (1.2-4.9) X10*3/uL [place] # (Auto) 0.7 (0.1-1.2) X10*3/uL Eos # (Auto) 0.2 (0.0-0.4) X10*3/uL Baso # (Auto) 0.1 (0.0-0.2) X10*3/uL Abs Immat Gran (auto) 0.02 (0.00-0.03) X10*3/uL Absolute Neuts (auto) 5.4 (2.0-8.3) x10*3/uL Absolute Nucleated RBC 0.000 (0.0-0.012) X10*3/uL Nucleated RBC % (auto) 0.0 (0.0-0.2) /100WBC ESR 5 (0-15) MM/HR Sodium 141 (135-145) mmol/L Potassium 4.7 (3.3-5.1) mmol/L Chloride 110 H (96-108) mmol/L Carbon Dioxide 24 (22-29) mmol/L Anion Gap 12 (12-20) BUN 16 (9-16) mg/dL Creatinine 1.02 (0.5-1.4) mg/dL Estim Creat Clear Calc 82.5 Estimated GFR > 60 Random Glucose 106 (60-115) mg/dL Uric Acid 7.8 H (3.4-7.0) mg/dL Calcium 9.2 (8.4-10.2) mg/dL Total Bilirubin 0.6 (0.0-1.0) mg/dL AST 17 (5-37) U/L ALT 20 (0-40) U/L Alkaline Phosphatase 69 (39-117) U/L Total Protein 6.8 (6.5-8.0) g/dL Albumin 4.5 (3.5-5.0) g/dL Radiology Impression Discussion of test interpretation with radiology: I have reviewed the radiologist's reading. Radiologist Impression: COMPARISON: None? TECHNIQUE: 4 views of the left wrist. FINDINGS: There is mild loss of first carpometacarpal joint space with periarticular spurring. No visible acute fracture, dislocation or subluxation seen. There is widening of scapholunate distance suggestive of ligament tear or injury. The soft tissues are normal. XR/XR wrist LT min 3V IMPRESSION: Mild degenerative changes first carpometacarpal joint. No visible acute fracture or dislocation seen. ? Widening of scapholunate distance suggestive of ligament tear or injury. If patient has pain in this region further evaluation with outpatient MRI wrist can be helpful. ? Dictated By: Phillip Newman MD Signed By: <Electronically signed by Phillip Newman MD in OV> 08/09/2244 DD/ 4 Discharge Plan Discharge Clinical Impression: Cellulitis Patient Disposition: Home, Self-Care Instructions: Cellulitis (ED) Additional Instructions: Follow-up with primary care physician, take cephalexin as directed, uric acid was slightly elevated this could be also gout so measure you follow-up with your primary care physician. Return to the emergency room if you have a fever chills vomiting worse Prescriptions: New cephalexin 500 mg capsule 500 mg PO Q8H 7 Days Qty: 21 0RF naproxen [Naprosyn] 500 mg tablet 500 mg PO BID PRN (Reason: PAIN) Qty: 20 0RF No Action diazepam [Valium] 5 mg tablet 5 mg PO TID PRN (Reason: muscle spasm) Qty: 10 0RF cyclobenzaprine 10 mg tablet 10 mg PO TID PRN (Reason: muscle spasm) Qty: 14 0RF lidocaine 4 % adhesive patch,medicated 1 patch topical DAILY PRN (Reason: pain) Qty: 10 0RF Rx Instructions: may leave on for up to 12 hrs prednisone 20 mg tablet 20 mg PO DAILY 5 Days Qty: 5 0RF azithromycin 250 mg tablet See Rx Instructions .ROUTE .COMPLEX Qty: 6 0RF Rx Instructions: For 250 mg dose pack: take 500 mg today (day 1), then 250 mg for 4 days (days 2-5) doxycycline hyclate 100 mg tablet 100 mg PO BID Qty: 14 0RF Referrals: Billy Santillan MD [Primary Care Provider] - 2 days Interventions: ED Discharge Assessment Last Done: 08/09/22 08:33 Discharge Date/Time: 08/09/22 08:48
[2022-08-09 07:16] LABS: MANUAL DIFF FLAG NO
[2022-08-09 07:17] LABS: Basophils Absolute Auto 0.1 X10*3/uL (0.0-0.2); Basophils Percent Auto 0.7 % (0-2); Eosinophils Absolute Auto 0.2 X10*3/uL (0.0-0.4); Hematocrit 45.1 % (42.0-52.0); Hemoglobin 15.2 g/dl (14.0-18.0); Imm Gran Abs Auto 0.02 X10*3/uL (0.00-0.03); Imm Gran Pct Auto 0.3 % (0.0-0.4); Lymphocytes Absolute Auto 1.3 X10*3/uL (1.2-4.9); Lymphocytes Percent Auto 16.8 % (20-40); Mean Corpuscular HGB Conc 33.7 g/dl (31.0-36.0); Mean Corpuscular Hemoglobin 29.7 pg (27.0-33.0); Mean Corpuscular Volume 88.3 fL (80.0-98.0); Mean Platelet Volume 9.4 fL (9.4-12.4); Monocytes Absolute Auto 0.7 X10*3/uL (0.1-1.2); Monocytes Percent Auto 9.1 % (2-11); Neutrophils Absolute Auto 5.4 x10*3/uL (2.0-8.3); Neutrophils Percent Auto 71.1 % (45-73); Platelet Count 291 X10*3/uL (160-400); Red Blood Count 5.11 X10*6/uL (4.60-5.80); Red Cell Distribution Width 13.6 % (11.0-16.0); White Blood Count 7.6 X10*3/uL (4.8-10.8)
[2022-08-09] MEDS: cefTRIAXone sodium 2 GM in 0.9 % Sodium Chloride 50 ML IV (07:25)
[2022-08-09 07:32] LABS: Alanine Aminotransferase 20 U/L (0-40); Albumin Level 4.5 g/dL (3.5-5.0); Alkaline Phosphatase 69 U/L (39-117); Anion Gap 12 (12-20); Aspartate Amino Transferase 17 U/L (5-37); Bilirubin Total 0.6 mg/dL (0.0-1.0); Blood Urea Nitrogen 16 mg/dL (9-16); Calcium 9.2 mg/dL (8.4-10.2); Carbon Dioxide 24 mmol/L (22-29); Chloride 110 mmol/L (96-108); Creatinine Clr Calc Pharmacy 82.5; Estimated Glomerular Filt Rate > 60; Glucose Random 106 mg/dL (60-115); Potassium 4.7 mmol/L (3.3-5.1); Sodium 141 mmol/L (135-145); Total Protein 6.8 g/dL (6.5-8.0); Uric Acid 7.8 mg/dL (3.4-7.0)
[2022-08-09 08:04] VITALS: BP 121/73; PULSE 70; RESP 19; TEMP 36.6; O2SAT 96
[2022-08-09 08:19] LABS: Erythrocyte Sedimentation Rate 5 MM/HR (0-15)
== END 2022-08-09 08:48 | disposition home or self-care (01) ==
PROVIDERS: Emergency Provider Emergency Medicine; PCP Internal Medicine
DX: L03.114 Cellulitis of left upper limb (principal); R07.89 Other chest pain; Z79.899 Other long term (current) drug therapy
CPT/HCPCS: 36415; 73110; 80053; 84550; 85025; 85652; 87040; 96374; 99284; J0696

== ENCOUNTER 2022-11-19 10:28 | Outpatient (REF) | payer MEDICARE, SELFPAY ==
[2022-11-19 10:44] LABS: MANUAL DIFF FLAG NO
[2022-11-19 11:30] LABS: Basophils Absolute Auto 0.1 X10*3/uL (0.0-0.2); Basophils Percent Auto 0.6 % (0-2); Eosinophils Absolute Auto 0.1 X10*3/uL (0.0-0.4); Eosinophils Percent Auto 1.4 % (0-4); Hematocrit 44.8 % (42.0-52.0); Hemoglobin 14.9 g/dl (14.0-18.0); Imm Gran Abs Auto 0.02 X10*3/uL (0.00-0.03); Imm Gran Pct Auto 0.3 % (0.0-0.4); Lymphocytes Absolute Auto 1.3 X10*3/uL (1.2-4.9); Lymphocytes Percent Auto 16.8 % (20-40); Mean Corpuscular HGB Conc 33.3 g/dl (31.0-36.0); Mean Corpuscular Hemoglobin 29.4 pg (27.0-33.0); Mean Corpuscular Volume 88.4 fL (80.0-98.0); Mean Platelet Volume 9.6 fL (9.4-12.4); Monocytes Absolute Auto 0.6 X10*3/uL (0.1-1.2); Monocytes Percent Auto 7.2 % (2-11); Neutrophils Absolute Auto 5.9 x10*3/uL (2.0-8.3); Neutrophils Percent Auto 73.7 % (45-73); Platelet Count 359 X10*3/uL (160-400); Red Blood Count 5.07 X10*6/uL (4.60-5.80); White Blood Count 7.9 X10*3/uL (4.8-10.8)
[2022-11-19 11:35] LABS: Alanine Aminotransferase 23 U/L (0-40); Albumin Level 4.1 g/dL (3.5-5.0); Alkaline Phosphatase 76 U/L (39-117); Anion Gap 12 (12-20); Aspartate Amino Transferase 21 U/L (5-37); Bilirubin Total 0.7 mg/dL (0.0-1.0); Blood Urea Nitrogen 23 mg/dL (9-16); Calcium 9.2 mg/dL (8.4-10.2); Carbon Dioxide 24 mmol/L (22-29); Chloride 108 mmol/L (96-108); Estimated Glomerular Filt Rate > 60; Glucose Random 100 mg/dL (60-115); Potassium 4.6 mmol/L (3.3-5.1); Sodium 139 mmol/L (135-145); Total Protein 6.4 g/dL (6.5-8.0); Uric Acid 6.4 mg/dL (3.4-7.0)
== END 2022-11-19 10:29 | disposition home or self-care (01) ==
LOC: HO.LAB 10:28
PROVIDERS: PCP Internal Medicine; Visit Provider Internal Medicine
DX: E78.00 Pure hypercholesterolemia, unspecified (principal); J44.9 Chronic obstructive pulmonary disease, unspecified; E79.0 Hyperuricemia without signs of inflammatory arthritis and tophaceous disease
CPT/HCPCS: 36415; 80053; 84550; 85025

== ENCOUNTER 2023-02-26 20:11 | Emergency (ER) | payer MEDICARE, SELFPAY ==
[2023-02-26 21:41] VITALS: BP 123/73; PULSE 79; RESP 18; TEMP 36.6; O2SAT 99; BMI 30.9
[2023-02-27] VITALS: BP 119/65; PULSE 65; RESP 18; TEMP 36.9; O2SAT 98
--- NOTE | 2023-02-27 00:10 | PC.NURSE ---
Pt came to ER after finding blood clots in his urine. Pt has had painful urination for several days, reporting pain is 8/10 at this time. Pt is A&O GCS 15, with warm dry skin. Pt is ambulatory without assist. Pt gave a urine sample that was bright red with large clots. Sample was collected and sent.
--- NOTE | 2023-02-27 00:24 | MHC.EDTECH ---
THIS PCT JUST ASSUMED CARE OF PATIENT ,VITALS SIGN TAKEN TYPE AND SCREEN ,CMP AND CBC DRAWN AND SENT TO LAB ,PT IS RESTING IN BED .
[2023-02-27 00:27] LABS: MANUAL DIFF FLAG NO
[2023-02-27 00:31] LABS: Basophils Percent Auto 0.5 % (0-2); Eosinophils Absolute Auto 0.2 X10*3/uL (0.0-0.4); Eosinophils Percent Auto 2.9 % (0-4); Hematocrit 41.7 % (42.0-52.0); Hemoglobin 13.9 g/dl (14.0-18.0); Imm Gran Abs Auto 0.01 X10*3/uL (0.00-0.03); Imm Gran Pct Auto 0.1 % (0.0-0.4); Lymphocytes Absolute Auto 1.4 X10*3/uL (1.2-4.9); Lymphocytes Percent Auto 19.1 % (20-40); Mean Corpuscular HGB Conc 33.3 g/dl (31.0-36.0); Mean Corpuscular Hemoglobin 28.7 pg (27.0-33.0); Mean Platelet Volume 9.3 fL (9.4-12.4); Monocytes Absolute Auto 0.7 X10*3/uL (0.1-1.2); Monocytes Percent Auto 9.7 % (2-11); Neutrophils Percent Auto 67.7 % (45-73); Platelet Count 270 X10*3/uL (160-400); Red Blood Count 4.85 X10*6/uL (4.60-5.80); Red Cell Distribution Width 13.5 % (11.0-16.0); White Blood Count 7.3 X10*3/uL (4.8-10.8)
[2023-02-27 00:46] LABS: Alanine Aminotransferase 15 U/L (0-40); Albumin Level 3.9 g/dL (3.5-5.0); Alkaline Phosphatase 71 U/L (39-117); Anion Gap 13 (12-20); Aspartate Amino Transferase 16 U/L (5-37); Bilirubin Total 0.4 mg/dL (0.0-1.0); Blood Urea Nitrogen 17 mg/dL (9-16); Carbon Dioxide 19 mmol/L (22-29); Chloride 110 mmol/L (96-108); Creatinine Clr Calc Pharmacy 92.2; Estimated Glomerular Filt Rate > 60; Glucose Random 116 mg/dL (60-115); Potassium 3.9 mmol/L (3.3-5.1); Sodium 138 mmol/L (135-145); Total Protein 6.5 g/dL (6.5-8.0)
--- NOTE | 2023-02-27 00:54 | MHC.EDTECH ---
PATIENT 2ND TYPE AND SCREEN DRAWN AND SENT TO LAB .
[2023-02-27 02:00] VITALS: BP 130/80; PULSE 67; RESP 16; TEMP 37.1; O2SAT 98
--- NOTE | 2023-02-27 02:13 | ED.MALEGU ---
HPI - Male Genitourinary General Chief complaint: Urogenital-Male Stated complaint: blood in urine Time Seen by Provider: 02/27/23 02:01 Source: patient Mode of arrival: ambulatory Limitations: no limitations History of Present Illness HPI Narrative: 68-year-old male came in for evaluation of blood in the urine since midday today, patient stated that his passing blood clots, patient is not on AC only taking baby aspirin daily, no recent trauma, patient usually have a chronic back pain but no new pain in the flank are in the back area, no nausea, vomiting, fever, chills. Related Data Previous Rx's Medication Instructions Recorded doxycycline hyclate 100 mg tablet 100 mg PO BID #14 tabs 09/28/20 azithromycin 250 mg tablet See Rx Instructions PO .COMPLEX #6 10/25/21 tabs cyclobenzaprine 10 mg tablet 10 mg PO TID PRN muscle spasm #14 10/25/21 tabs diazepam 5 mg tablet (Valium) 5 mg PO TID PRN muscle spasm #10 10/25/21 tabs lidocaine 4 % topical patch 1 patch topical DAILY PRN pain #10 10/25/21 ea prednisone 20 mg tablet 20 mg PO DAILY 5 days #5 tabs 10/25/21 cephalexin 500 mg capsule 500 mg PO Q8H 7 days #21 caps 08/09/22 naproxen 500 mg tablet (Naprosyn) 500 mg PO BID PRN PAIN #20 tabs 08/09/22 cefuroxime axetil 500 mg tablet 500 mg PO BID #14 tabs 02/27/23 Allergies Allergy/AdvReac Type Severity Reaction Status Date / Time shrimp [SHRIMP] Allergy Unknown UNKNOWN Verified 08/09/22 05:46 Review of Systems Review of Systems: All other systems are reviewed and are negative Constitutional: Reports as per HPI and Reports no additional constitutional complaints Eyes: Reports as per HPI and Reports no additional eye complaints Reports system reviewed and no additional complaints, except as documented Cardiovascular: Reports as per HPI and Reports no additional cardiovascular complaints Respiratory: Reports as per HPI and Reports no additional respiratory complaints Gastrointestinal: Reports as per HPI and Reports no additional gastrointestinal complaints Genitourinary: Reports no additional female genitourinary complaints Musculoskeletal: Reports no additional musculoskeletal complaints Skin/Breast: Reports system reviewed and no additional complaints, except as docu Psychiatric: Reports no additional psychiatric complaints Endocrine: Reports no additional endocrine complaints Hematologic/Lymphatic: Reports no additional hematologic/lymphatic complaints Allergic/Immunologic: Reports no additional allergic/immunologic complaints Reports system reviewed and no additional complaints, except as documented and Reports Abnormal speech present [facility] Past Medical History Medical History COPD (chronic obstructive pulmonary disease) Disc disorder of lumbar region DVT (deep venous thrombosis) Hypercholesteremia Prostate CA Skin cancer of face Surgical History Knee joint replacement status Social History Social History Alcohol intake: current Alcohol intake frequency: holidays/special occasions only Alcohol type: beer Patient Tobacco Use Status: Tobacco use Unknown Smoked in Last 30 Days: No Use of substances other than those prescribed or required for medical reasons: No Advance Directives: No Advance Directives Information Provided: No Physical Exam Vital Signs: Vital Signs: Last Vital Signs Temp 98.8 F 02/27/23 02:00 Pulse 67 02/27/23 02:00 Resp 16 02/27/23 02:00 BP 130/80 02/27/23 02:00 Pulse Ox 98 02/27/23 02:00 O2 Del Method Room Air 02/27/23 02:00 BMI result Body Mass Index 30.9 Vital signs have been reviewed as appeared to be correct. Blood pressure normal. Heart rate normal. Respiration rate normal. Temperature normal. Oxygen saturation normal. Appearance: Alert. Oriented X3. No acute distress. Head: Normal external exam. Normocephalic. Atraumatic. No Goddard signs noted. No raccoon eyes noted Eyes: PERRLA. EOMI. Conjunctiva and sclera normal. Eyelids normal. ENT: TM's Normal. Pharynx normal. Uvula midline. Moist mucous membranes. No trismus noted. No drooling noted. No muffled voice noted. Neck: Normal inspection. Neck supple. FROM. No adenopathy. Thyroid Normal. No meningeal signs. No neck mass noted. CVS: Normal heart rate and rhythm. Heart sound normal. No murmurs noted. Pulses normal throughout. Respiratory: No respiratory distress. Painless inspiration. Breath sounds normal. No wheezes/rales/rhonchi noted. Chest nontender. No accessory muscle usage noted or decreased air movement noted. Abdomen: Soft and nontender. Bowel sounds normal in all 4 quadrants. No distention noted. No organomegaly noted. No visible injury noted. Back: No CVA tenderness. Full range of motion noted. Skin: Skin warm and dry. Normal skin color. Normal skin turgor. No rashes/lesions/lacerations noted. Extremities: No lower extremity edema. Extremities exhibit normal range of motion. Extremities nontender. Neuro: Oriented X 3. Cranial nerve exam: II-XII are grossly intact No motor deficit. No sensory deficit. Reflexes normal. Course Course Course Narrative: Painless hematuria that is cleared with continuous bladder irrigation, will discharge the patient on several and patient was instructed to follow-up with his urologist for further evaluation. Medications Administered Discontinued Medications Generic Name Dose Route Start Last Admin Trade Name Freq PRN Reason Stop Dose Admin Sodium Chloride 1,000 mls @ 999 mls/hr 02/27/23 01:27 02/27/23 03:15 Ns IV 02/27/23 02:27 Infused .Q1H1M ONE Infusion Sodium Chloride 1,000 mls @ 999 mls/hr 02/27/23 02:12 02/27/23 04:16 Ns IV 02/27/23 03:12 Infused .Q1H1M ONE Infusion Lidocaine HCl 10 ml 02/27/23 02:12 02/27/23 03:14 Lidocaine Hcl 2 % Urojet 10 Ml Jel.Pf.Marvin TOPICAL 02/27/23 02:13 10 ml ONCE ONE Administration Medical Decision Making Differential Diagnosis Differential Diagnoses: The differential diagnosis associated with the presentation includes (Cystitis, UTI, kidney stone, coagulopathy, severe anemia, electrolyte abnormalities.) Admission/Observation Consideration of admission/observation: Escalation of care including admission/observation considered Lab Data MDM Lab Attestation statement: I reviewed the patient's lab results. 02/27/23 00:21 02/27/23 00:21 Labs: Lab Results 02/27/23 02/27/23 02/27/23 Range/Units 00:21 00:21 00:21 WBC 7.3 (4.8-10.8) X10*3/uL RBC 4.85 (4.60-5.80) X10*6/uL Hgb 13.9 L (14.0-18.0) g/dl Hct 41.7 L (42.0-52.0) % MCV 86.0 (80.0-98.0) fL MCH 28.7 (27.0-33.0) pg MCHC 33.3 (31.0-36.0) g/dl RDW 13.5 (11.0-16.0) % Plt Count 270 (160-400) X10*3/uL MPV 9.3 L (9.4-12.4) fL Immature Gran % (Auto) 0.1 (0.0-0.4) % Neut % (Auto) 67.7 (45-73) % Lymph % (Auto) 19.1 L (20-40) % Carl[place] % (Auto) 9.7 (2-11) % Eos % (Auto) 2.9 (0-4) % Baso % (Auto) 0.5 (0-2) % Lymph # (Auto) 1.4 (1.2-4.9) X10*3/uL [place] # (Auto) 0.7 (0.1-1.2) X10*3/uL Eos # (Auto) 0.2 (0.0-0.4) X10*3/uL Baso # (Auto) 0.0 (0.0-0.2) X10*3/uL Abs Immat Gran (auto) 0.01 (0.00-0.03) X10*3/uL Absolute Neuts (auto) 5.0 (2.0-8.3) x10*3/uL Absolute Nucleated RBC 0.000 (0.0-0.012) X10*3/uL Nucleated RBC % (auto) 0.0 (0.0-0.2) /100WBC Sodium 138 (135-145) mmol/L Potassium 3.9 (3.3-5.1) mmol/L Chloride 110 H (96-108) mmol/L Carbon Dioxide 19 L (22-29) mmol/L Anion Gap 13 (12-20) BUN 17 H (9-16) mg/dL Creatinine 0.84 (0.5-1.4) mg/dL Estim Creat Clear Calc 92.2 Estimated GFR > 60 Random Glucose 116 H (60-115) mg/dL Calcium 9.0 (8.4-10.2) mg/dL Total Bilirubin 0.4 (0.0-1.0) mg/dL AST 16 (5-37) U/L ALT 15 (0-40) U/L Alkaline Phosphatase 71 (39-117) U/L Total Protein 6.5 (6.5-8.0) g/dL Albumin 3.9 (3.5-5.0) g/dL Urine Color Red A Urine Appearance Cloudy Urine pH 6.0 (5.0-9.0) Ur Specific [place] >= 1.030 H (1.005-1.025) Urine Protein 100 (2+) H (Neg-Trace) mg/dL Urine Glucose (UA) Negative (Negative) mg/dL Urine Ketones Negative (Negative) mg/dL Urine Blood Large (3+) H (Negative) Urine Nitrite Negative (Negative) Ur Leukocyte Esterase Trace H (Negative) Urine RBC >20 H (0-2) /HPF Urine WBC 0-5 (0-5) /HPF Ur Squamous Epith Cells 0-2 (0-2) /HPF Urine Bacteria Trace (None Seen) Hyaline Casts 0-2 (0-2) /LPF Blood Type Antibody Screen 02/27/23 Range/Units 00:21 WBC (4.8-10.8) X10*3/uL RBC (4.60-5.80) X10*6/uL Hgb (14.0-18.0) g/dl Hct (42.0-52.0) % MCV (80.0-98.0) fL MCH (27.0-33.0) pg MCHC (31.0-36.0) g/dl RDW (11.0-16.0) % Plt Count (160-400) X10*3/uL MPV (9.4-12.4) fL Immature Gran % (Auto) (0.0-0.4) % Neut % (Auto) (45-73) % Lymph % (Auto) (20-40) % Carlton % (Auto) (2-11) % Eos % (Auto) (0-4) % Baso % (Auto) (0-2) % Lymph # (Auto) (1.2-4.9) X10*3/uL [place] # (Auto) (0.1-1.2) X10*3/uL Eos # (Auto) (0.0-0.4) X10*3/uL Baso # (Auto) (0.0-0.2) X10*3/uL Abs Immat Gran (auto) (0.00-0.03) X10*3/uL Absolute Neuts (auto) (2.0-8.3) x10*3/uL Absolute Nucleated RBC (0.0-0.012) X10*3/uL Nucleated RBC % (auto) (0.0-0.2) /100WBC Sodium (135-145) mmol/L Potassium (3.3-5.1) mmol/L Chloride (96-108) mmol/L Carbon Dioxide (22-29) mmol/L Anion Gap (12-20) BUN (9-16) mg/dL Creatinine (0.5-1.4) mg/dL Estim Creat Clear Calc Estimated GFR Random Glucose (60-115) mg/dL Calcium (8.4-10.2) mg/dL Total Bilirubin (0.0-1.0) mg/dL AST (5-37) U/L ALT (0-40) U/L Alkaline Phosphatase (39-117) U/L Total Protein (6.5-8.0) g/dL Albumin (3.5-5.0) g/dL Urine Color Urine Appearance Urine pH (5.0-9.0) Ur Specific [place] (1.005-1.025) Urine Protein (Neg-Trace) mg/dL Urine Glucose (UA) (Negative) mg/dL Urine Ketones (Negative) mg/dL Urine Blood (Negative) Urine Nitrite (Negative) Ur Leukocyte Esterase (Negative) Urine RBC (0-2) /HPF Urine WBC (0-5) /HPF Ur Squamous Epith Cells (0-2) /HPF Urine Bacteria (None Seen) Hyaline Casts (0-2) /LPF Blood Type O Positive Antibody Screen NEGATIVE Independent Interpretation I performed an independent interpretation of an: CT Scan (Abdomen and pelvis: Cystitis.) Radiology Impression Discussion of test interpretation with radiology: I have reviewed the radiologist's reading. Discharge Plan Discharge Clinical Impression: Painless hematuria Patient Disposition: Home, Self-Care Instructions: Hematuria (ED) Additional Instructions: Call your urologist and make an appointment for further evaluation. Prescriptions: New cefuroxime axetil 500 mg tablet 500 mg PO BID Qty: 14 0RF No Action diazepam [Valium] 5 mg tablet 5 mg PO TID PRN (Reason: muscle spasm) Qty: 10 0RF cyclobenzaprine 10 mg tablet 10 mg PO TID PRN (Reason: muscle spasm) Qty: 14 0RF lidocaine 4 % adhesive patch,medicated 1 patch topical DAILY PRN (Reason: pain) Qty: 10 0RF Rx Instructions: may leave on for up to 12 hrs prednisone 20 mg tablet 20 mg PO DAILY 5 Days Qty: 5 0RF azithromycin 250 mg tablet See Rx Instructions .ROUTE .COMPLEX Qty: 6 0RF Rx Instructions: For 250 mg dose pack: take 500 mg today (day 1), then 250 mg for 4 days (days 2-5) cephalexin 500 mg capsule 500 mg PO Q8H 7 Days Qty: 21 0RF naproxen [Naprosyn] 500 mg tablet 500 mg PO BID PRN (Reason: PAIN) Qty: 20 0RF doxycycline hyclate 100 mg tablet 100 mg PO BID Qty: 14 0RF
[2023-02-27] MEDS: 0.9 % Sodium Chloride 1,000 ML 999 ML IV (03:14)
[2023-02-27] MEDS: Lidocaine HCl 2 % Urojet 10 ML JEL.PF.APP TOPICAL (03:14)
--- NOTE | 2023-02-27 03:15 | PC.NURSE ---
24fr 3-way catheter inserted with urojet assistance. Pt tolerated insertion well, fluids have started. First bag started at 0315, output is pink with small clots, pt reports increasing pressure. Dr Sparrow at bedside.
--- NOTE | 2023-02-27 04:03 | PC.NURSE ---
As of 399, CBI has emptied approx 1500mL from bag and bladder has drained approx 1500mL from bladder. Irrigation is still red with clots at this time.
--- NOTE | 2023-02-27 05:19 | PC.NURSE ---
Approx 0515, pt finished first bag, input 1500mL, output 1500mL,. Output was clear and yellow, no clots visible. Per MD Sparrow, three way catheter was discontinued and removed without complications.
[2023-02-27 06:18] VITALS: BP 144/78; PULSE 92; RESP 16; TEMP 37.1; O2SAT 96
== END 2023-02-27 06:44 | disposition home or self-care (01) ==
PROVIDERS: Emergency Provider Emergency Medicine; PCP Internal Medicine
DX: R31.9 Hematuria, unspecified (principal); E78.00 Pure hypercholesterolemia, unspecified; Z86.718 Personal history of other venous thrombosis and embolism; Z79.899 Other long term (current) drug therapy; Z79.82 Long term (current) use of aspirin
CPT/HCPCS: 36415; 74176; 80053; 81001; 85025; 86850; 86900; 86901; 96360; 96361; 99284; 99285

== ENCOUNTER 2024-04-17 07:16 | Day surgery (SDC) | payer MEDICARE, SELFPAY ==
[2024-04-15 13:47] VITALS: BMI 31.5
[2024-04-17 09:01] VITALS: BMI 31.7
[2024-04-17 09:08] VITALS: BMI 33.7
[2024-04-17 09:27] VITALS: BP 144/79; PULSE 71; RESP 16; TEMP 36.2; O2SAT 96
--- NOTE | 2024-04-17 09:30 | HO.ANESPROP2 ---
Documented by User: Diana Del Valle NP 04/16/24 09:52 HPI - Anesthesia Eval Consult details Narrative: 69yo M for Colonoscopy PMFSH Active Problems Active Problems: All Active Problems Hand abrasion, infected (Acute) Past Medical History Medical History (Updated 04/17/24 @ 08:50 by Sameera Norman RN) Hx of radiation therapy Hand numbness Hyperlipemia Wears dentures Gout DVT (deep venous thrombosis) Hypercholesteremia COPD (chronic obstructive pulmonary disease) Disc disorder of lumbar region Skin cancer of face Prostate CA Surgical History Surgical History Hx of colonoscopy History of carpal tunnel release (~2023) History of back surgery History of bilateral knee replacement H/O basal cell carcinoma excision Knee joint replacement status Social History Social History (Updated 04/16/24 @ 11:19 by Charlene Adamson RN) Household Members: None Housing: House Are you a primary care services manager to a significant other at home: No Do you presently have visiting nurse or other home services: No Alcohol intake: current Alcohol intake frequency: holidays/special occasions only Alcohol type: beer Patient Tobacco Use Status: Former Tobacco user Tobacco use type: Cigarette Use of substances other than those prescribed or required for medical reasons: No Have you been hit, kicked, punched, or otherwise hurt by someone within the past year? If so, by whom?: No Are you DNR?: No Advance Directives: No Advance Directives Information Provided: Yes Recently lost weight without trying: No Nutrition Risks: No Nutritional Risk Poor oral hygiene: No Meds Allergies Allergy/AdvReac Type Severity Reaction Status Date / Time shrimp [SHRIMP] Allergy Severe Diarrhea, Verified 04/17/24 08:51 severe vomitting Home Medications ?Medication ?Instructions ?Recorded ?Confirmed ?Last Taken ?Type albuterol sulfate 90 mcg/actuation 2 puff inhalation QID PRN 04/16/24 04/17/24 Unknown History aerosol inhaler Shortness Of Breath Or Wheezing allopurinol 100 mg tablet 100 mg PO DAILY 04/16/24 04/17/24 04/16/24 History aspirin 81 mg tablet,delayed 81 mg PO DAILY 04/16/24 04/17/24 04/13/24 History release atorvastatin 20 mg tablet 20 mg PO BEDTIME 0804/17/24 04/16/24 History oxybutynin chloride 15 mg 15 mg PO DAILY 04/16/24 04/17/24 04/16/24 History tablet,extended release 24 hr Exam Height,Weight and Vital Signs: Height 5 ft 9 in Weight 96.615 kg Assessment and Plan Assessment Anesthesia Assessment: Chart Reviewed Documented by User: Sofi Meier DO 04/17/24 09:36 PMF Past Medical History Medical History (Updated 04/17/24 @ 08:50 by Sameera Norman RN) Hx of radiation therapy Hand numbness Hyperlipemia Wears dentures Gout DVT (deep venous thrombosis) Hypercholesteremia COPD (chronic obstructive pulmonary disease) Disc disorder of lumbar region Skin cancer of face Prostate CA Family History Family history of problems with anesthesia: No Surgical History Surgical History Hx of colonoscopy History of carpal tunnel release (~2023) History of back surgery History of bilateral knee replacement H/O basal cell carcinoma excision Knee joint replacement status History of Problems with Anesthesia: No Social History Social History (Updated 04/16/24 @ 11:19 by Charlene Adamson RN) Household Members: None Housing: House Are you a primary care services manager to a significant other at home: No Do you presently have visiting nurse or other home services: No Alcohol intake: current Alcohol intake frequency: holidays/special occasions only Alcohol type: beer Patient Tobacco Use Status: Former Tobacco user Tobacco use type: Cigarette Use of substances other than those prescribed or required for medical reasons: No Have you been hit, kicked, punched, or otherwise hurt by someone within the past year? If so, by whom?: No Are you DNR?: No Advance Directives: No Advance Directives Information Provided: Yes Recently lost weight without trying: No Nutrition Risks: No Nutritional Risk Poor oral hygiene: No Meds Allergies Allergy/AdvReac Type Severity Reaction Status Date / Time shrimp [SHRIMP] Allergy Severe Diarrhea, Verified 04/17/24 08:51 severe vomitting Home Medications ?Medication ?Instructions ?Recorded ?Confirmed ?Last Taken ?Type albuterol sulfate 90 mcg/actuation 2 puff inhalation QID PRN 04/16/24 04/17/24 Unknown History aerosol inhaler Shortness Of Breath Or Wheezing allopurinol 100 mg tablet 100 mg PO DAILY 04/16/24 04/17/24 04/16/24 History aspirin 81 mg tablet,delayed 81 mg PO DAILY 04/16/24 04/17/24 04/13/24 History release atorvastatin 20 mg tablet 20 mg PO BEDTIME 04/16/24 04/17/24 04/16/24 History oxybutynin chloride 15 mg 15 mg PO DAILY 04/16/24 04/17/24 04/16/24 History tablet,extended release 24 hr Exam Exam Date and Time: April 17, 2024 0930 Height,Weight and Vital Signs: Height 5 ft 9 in Weight 96.615 kg Vital Signs Temperature 97.1 F 04/17/24 09:27 Pulse Rate 71 04/17/24 09:27 Respiratory Rate 16 04/17/24 09:27 Blood Pressure 144/79 H 04/17/24 09:27 Pulse Oximetry 96 04/17/24 09:27 Oxygen Delivery Method Room Air 04/17/24 09:27 Temperature 97.1 F 04/17/24 09:27 Pulse Rate 71 04/17/24 09:27 Respiratory Rate 16 04/17/24 09:27 Blood Pressure 144/79 H 04/17/24 09:27 Pulse Oximetry 96 04/17/24 09:27 Oxygen Delivery Method Room Air 04/17/24 09:27 Airway Mallampati Class: II TM Dist: >3cm Neck ROM: Full Denture: Upper Partial: Lower Heart: S1S2 Lungs: CTAB Assessment and Plan Assessment Anesthesia Assessment: Anesthesia Plan Discussed and Chart Reviewed Final Anesthetic Review Family History of Problems with Anesthesia: No History of Problems with Anesthesia: No NPO: Yes ASA Class: II Final Preanesthetic Review: No Changes in Pt Med Stat, Meds/Allgs Chart Reviewed, Consent Obtained/Reviewed and Anes Risks/Benef Reviewed Patient Risk: Low Procedure Risk: Low Anesthetic Plan Anesthetic Plan: MAC: and Agree w/ Assess. and Plan Disposition: Standard PACU
[2024-04-17] MEDS: Lactated Ringers 1,000 ML 100 ML IVCONT (09:36)
[2024-04-17 10:17] VITALS: BP 112/71; PULSE 71; RESP 16; TEMP 36.4; O2SAT 97
--- NOTE | 2024-04-17 10:20 | P.BOP_ITS ---
Brief Operative Note Date of Service: 04/17/24 Pre-op diagnosis: Screening Post-op diagnosis: other (Diverticulosis) Procedure: Colonoscopy to the cecum Surgeon: Teofilo Scott MD Anesthesia: MAC Was an Public Aid Eligibility Assistant used for this Procedure?: No Estimated blood loss (mL): 0 Pathology: none sent Condition: stable Disposition: PACU
[2024-04-17 10:32] VITALS: BP 118/82; PULSE 65; RESP 16; TEMP 36.3; O2SAT 97
--- NOTE | 2024-04-17 10:50 | OP_ITS ---
DATE OF SERVICE: 04/17/2024 SURGEON: Teofilo Scott MD INDICATIONS: The patient presents for evaluation of colorectal cancer screening and prior history of a tubular adenoma of the colon. Full consent has been obtained from him for this, including risks of bleeding and perforation. PREOPERATIVE DIAGNOSIS: Colorectal cancer screening and personal history of tubular adenoma of the colon. POSTOPERATIVE DIAGNOSIS: PROCEDURE PERFORMED: Colonoscopy to the cecum. ESTIMATED BLOOD LOSS: COMPLICATIONS: ANESTHESIA: Monitored anesthesia care. ASSISTANTS: SPECIMENS: POSTOPERATIVE DIAGNOSES: Colorectal cancer screening and personal history of tubular adenoma of the colon, diverticulosis, and internal hemorrhoids. DESCRIPTION OF PROCEDURE: The patient was placed in the left lateral decubitus position. The digital rectal exam revealed no abnormalities. The Olympus video pediatric colonoscope was entered into the rectum and advanced easily to the cecum. Once in the cecum, I did identify normal-appearing cecal pouch with appendiceal orifice and a normal-appearing ileocecal valve. The entire cecum and ileocecal valve appeared normal. There was transillumination of light deep in the right lower quadrant. The scope was slowly withdrawn assessing all mucosal surfaces carefully. Preparation was excellent. I did not visualize any sign of polyps, colitis, nor angiodysplasia. There was a moderate amount of sigmoid diverticulosis. In the rectum, scope was retroflexed visualizing internal hemorrhoids, but no other pathology. The rectal mucosa appeared normal. The scope was straightened and withdrawn from the patient. He tolerated the procedure well and was returned to the recovery area in stable condition. IMPRESSION: 1. Diverticulosis. 2. Internal hemorrhoids. PLAN: I would recommend a repeat colonoscopy in 10 years for further screening given that his last exam in 2013 was negative other than a hyperplastic polyp and a small tubular adenoma was removed back in 2007. He was advised to resume his aspirin today. He will otherwise see me on a p.r.n. basis. Teofilo Scott MD RMNapoleon/NEREYDA / [phone]
== END 2024-04-17 11:21 | disposition home or self-care (01) ==
PROVIDERS: PCP Internal Medicine; Visit Provider Internal Medicine
PROC: 0DJD8ZZ Inspection of Lower Intestinal Tract, Via Natural or Artificial Opening Endoscopic (ICD-10-PCS; CPT 45378; principal; 2024-04-17 08:30)
DX: Z12.11 Encounter for screening for malignant neoplasm of colon (principal); Z86.010 Personal history of colon polyps; K57.30 Diverticulosis of large intestine without perforation or abscess without bleeding; K64.8 Other hemorrhoids; C61 Malignant neoplasm of prostate; Z92.3 Personal history of irradiation; J44.9 Chronic obstructive pulmonary disease, unspecified; Z87.11 Personal history of peptic ulcer disease; Z86.718 Personal history of other venous thrombosis and embolism; Z85.828 Personal history of other malignant neoplasm of skin; Z87.891 Personal history of nicotine dependence; Z87.442 Personal history of urinary calculi; Z79.82 Long term (current) use of aspirin; Z79.899 Other long term (current) drug therapy; Z98.890 Other specified postprocedural states
CPT/HCPCS: G0105; J2704

== ENCOUNTER 2024-12-27 09:12 | Outpatient (REF) | payer MEDICARE, SELFPAY ==
--- OUTSIDE RECORDS SUMMARY | 2024-12-27 09:53 | XMS_ITS | Encounter Summary ---
Author Name [facility] [place] Organization [facility] [place] Address [address] [place] [id number] Care Team Providers Care Senior Housekeeper Name Role Phone DORIS WRIGHT Primary Care Provider [facility] Insurance Providers: All historical and current Section Date Range: From patient's date of to the date document was created. This section includes the names of all active insurance providers for the patient. Insurance Provider Type of Coverage Plan Name Start of Policy Coverage End of Policy Coverage Group Number Member ID Insurance Provider's Telephone Number Policy Zhao's Name Patient's Relationship to Policy Zhao [place] SUPPLEMEN TAL MEDEX 2 December 26, 2021 [id number] Alison MARTI PATIENT MEDICARE (WNR) MEDICARE (M) PART A December 26, 2021 PART A [id number] Alison MARTI PATIENT MEDICARE (WNR) MEDICARE (M) PART B December 26, 2021 PART B [id number] Alison MARTI [place] PATIENT Selected Encounter This section includes the information on record at [place] for the Encounter. Date/Time Encounter Type Encounter Description Reason Provider Source Nov 20, 2024 09:00 AM Outpatient Encounter PRIMARY CARE/MEDICINE ICD-10-CM R20.2 Paresthesia of skin POLA ABREU Encounter Template Text not used by [place] Assessments - Encounter Diagnoses This section includes the primary and secondary diagnoses documented for the Encounter. Date/Time Primary/Secondary Diagnosis Diagnosis Name Provider Source Nov 20, 2024 09:00 AM PRIMARY Paresthesia of skin SAHNTELLEHailyHARVINDER JULIO CÉSARPOLA Mcgovern [place] Nov 20, 2024 09:00 AM SECONDARY Acute embolism and thombos unsp deep vn unsp lower extremity KINGSLEY JULIO CÉSAR,[facility] Nov 20, 2024 09:00 AM SECONDARY Chronic obstructive pulmonary disease, unspecified SHANTELLEHailyHARVINDER JULIO CÉSAR,[facility] Nov 20, 2024 09:00 AM SECONDARY Elevated blood-pressure reading, w/o diagnosis of htn KINGSLEY JULIO CÉSAR,[facility] Nov 20, 2024 09:00 AM SECONDARY Idiopathic gout, unspecified site CARLIETERRY JULIO CÉSAR,[facility] Nov 20, 2024 09:00 AM SECONDARY Male erectile dysfunction, unspecified CARLIEJUAN DIEGOHARVINDER JULIO CÉSAR,[facility] Nov 20, 2024 09:00 AM SECONDARY Malignant neoplasm of prostate SHANTELLEHailyHARVINDER ,[facility] Nov 20, 2024 09:00 AM SECONDARY Personal history of nicotine dependence KINGSLEY JULIO CÉSAR,[facility] Nov 20, 2024 09:00 AM SECONDARY Pure hypercholesterolem ia, unspecified SHANTELLEHailyHARVINDER JULIO CÉSAR,[facility] Plan of Treatment: Future Appointments (+ 6 months) and Future Tests (+/- 45 days) The Plan of Treatment section includes future care activities for the patient from [facility] [place] [facility] This section includes future appointments and future orders which are active, pending or scheduled. Future Appointments This section includes appointments that were scheduled to occur 6 months from the date of the Encounter, up to a maximum of 20 appointments. The data comes from all [place] treatment facilities. Appointment Date/Time Appointment Type Appointme nt Facility Name Nov 25, 2024 03:00 PM [facility] [place] [facility] Dec 23, 2024 08:00 AM [facility]ULAT[facility] [place] [facility] Dec 23, 2024 02:00 PM [facility]ATORY [facility] [place] [facility] Mar 24, 2025 01:30 PM AM[facility] - MED[facility]INE [facility] Social History: Smoking Status (Most current) and Tobacco Use (All prior to encounter date) This section includes the most current, and the historical, smoking and tobacco- related health factors from the [place] facility where the Encounter took place. Current Smoking Status This section includes the most current smoking, or tobacco-related health factor, from the [place] facility where the Encounter took place. Date/Time Current Smoking Status Comment Rusty ity Sep 30, 2024 03:00 PM VA-TOBACCO USE FORMER CIGARETTES [place] Tobacco Use History This section includes a history of the smoking, or tobacco-related health factors, that were collected on or before the date of the Encounter. The data comes from the [place] facility where the Encounter took place. Date/Time Smoking Status/Tobacco Use Comment F [email or web address] Sep 30, 2024 03:00 PM VA-TOBACCO USE FORMER CIGARETTES [place] Encounter Notes: All associated encounter notes This section contains the clinical notes associated to the Encounter. Date/Time Encounter Note(s) Provider Source Nov 20, 2024 09:00 AM PHYSICIAN NOTE: LOCAL TITLE: MD NOTE STANDARD TITLE: PHYSICIAN NOTE DATE OF NOTE: NOV 20, 2024@09:00 ENTRY DATE: NOV 20, 2024@08:45:23 AUTHOR: Antonina HERRERA COSIGNER: URGENCY: STATUS: COMPLETED NOTE Has ADDENDA Pt is 69 y/o M with PMH of obesity, HL, DVT (2014), COPD, prostate cancer 2019 s/p RT, SSC skin, knee OA Initial visit with [place] PCP Dr Venice [facility] - new provider, previous PCP retired Other providers: --[facility] = annually --EUSEBIO Costello --[facility] q6-12m CC: Left elbow pain Traumatic rupture of biceps tendon, Complete Biceps Tendon Tear, L Arm MAY 21 s/p surgery 10/17/2024 by EUSEBIO Costello With patient surgery complicated by severance of median nerve Since surgery patient reports significant loss of sensation and motor function in the left hand and fingers Patient is right-handed and states that he was fully functional prior to surgery now with left hand loss of function He is attending occupational therapy Has follow-up with [facility] next week Considering to get second opinion from [facility]opedics -Will obtain records from [facility] and follow-up with patient in 2 weeks #HL compliant with medications denies CP/SOB/SILVA/palpitations/dizzi ness /claudication denies h/o OK, CVA #elevated BP --> Per chart during last visit blood pressure was elevated start monitoring blood pressure at home and will readdress at next visit PAST MEDICAL HISTORY: --obesity --HL --DVT R Calf approx 2014; Completed ost-DVT AC --COPD --Exposure to potentially hazardous substance --Erectile dysfunction --Prostate cancer Dx 2018; Underwent RT 2019; CA Remission --SCC - Squamous cell carcinoma in situ of skin, 3x 2016 --Primary gout Gout Affects Left Non-Dominant Hand --Traumatic rupture of biceps tendon Completed Biceps Tendon Tear, L Arm MAY 21, s/p surgery 09/2024 --Bilateral osteoarthritis of knees PAST SURGICAL HISTORY: --TKR, R Side 2013; TKR, L Side 2020 --History of lumbar discectomy --R shoulder surgery ALLERGIES: IODINE CONTRAST EVEN WITH PREP, SHRIMP MEDICATIONS: Non-VA ASPIRIN 81MG ATORVASTATIN 20MG ALBUTEROL 90MCG (CFC-F) 200D ORAL prn <weekly OXYBUTYNIN CHLORIDE 5MG SA TAB DAILY FOR BLADDER INSTABILITY SILDENAFIL CITRATE 100MG MELOXICAM 7.5MG TAB ALLOPURINOL 100MG FAMILY HISTORY: --DM: no --Cancer: sister breast cancer --OK: no --CVA: no sister BPD, brother AUD SOCIAL HISTORY: Mil Hx: [employer] 1978 - [employer] - 1978 - 1988 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, 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 --Cohabitation: --Children: 2 sons, 1 daughter --Diet: --Exercise: walking 5 miles day, since hand surgery only PT --Caffeine: 12 c/d --EtOH: 2-3 beers/month --Tob: quit 2012 , h/o 80 x PPDY --MJ: no --Illicits: no --Sexual activity: monogamous,female --Eye: UTD --Dental: dentures full top, partial bottom --Hospitalizations: none recently except for surgery #2023 ED for hematuria -had cystoscopy radiation cystitis ROS: Constitutional: no fever/no chills, no ns Eyes: no change in vision/blurry vision Ears/Nose/Throat: no hearing change Respiratory: no cough/wheezing/SOB Cardiovascular: no CP /palpitations Gastrointestinal: no abdominal pain/bloody/black stools :no dysuria/hematuria/trouble voiding MSK: Loss of function L hand s/p surgery last month Neuro: no dizziness/H/A Skin: no pruritus/rash PHYSICAL EXAM: Vital Signs: n/a Gen: pleasant, engaged, NAD LABORATORY: No recent labs ASSESSMENT/PLAN: Pt is 69 y/o M with PMH of obesity, HL, DVT (2014), COPD, prostate cancer 2019 s/p RT, SSC skin, knee OA #L Hand numbness and weakness after recent surgery for ruptured biceps tendon -Obtain records from [facility] -Consider referral to [facility] for second opinion -c/w OT #HL: -On atorvastatin -Check lipid panel #h/o DVT completed anticoagulation -on ASA 81 #elevated BP at last visit: goal <130/80 -Start monitoring blood pressure at home, readdress at next visit #Primary gout -Gout Affects Left Non-Dominant Hand -Allopurinol Daily -Check uric acid #prostate cancer Dx 2018, s/p RT 2019, in remission -Follows with [facility] annually, last f/u 10/2024 per pt LILIANE 2023 seen in ED for gross hematuria -s/p cystoscopy --> radiation cystitis #ED: -On sildenafil #OAB: -No oxybutynin # Tinnitus -scheduled with [facility] audiology #h/o heavy smoking: last non [facility] CT >5 y ago at [facility] 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 repeat 2033 --Lung CA: agreed to screening --PSA --AAA (smoker/65): will schedule --Influenza (yrly): 2023 --COVID: --PCV13 --PCV23: --HZV (>60yrs, x1): --RZV (>50yrs, x1): --TDAP: --Hep C screen: --HIV screen: --DEXA: --Advanced Directives: Comanagement - prefers to have most aspects of health maintenance, chronic condition(s) and medication management to non-VA PCP. Address at next visit: Left hand numbness Return to clinic to see me in _2__weeks, sooner PRN. Virtual (x ), F2F ( ) ( )non fasting labs ordered prior to f/u ( x)fasting labs ordered prior to f/u ( )no labs needed ( )request labs from outside provider ( x)request records from outside providers -[facility] prior to next visit in 2 weeks -[facility] -colonoscopy -non VA PCP -- Please assign patient to PACT 5 Medication Reconciliation: Outpatient: Has the patient been taking medications as documented in the EMLR? YES: The patient has been taking medications as documented in the EMLR. Essential Medication List for Review used to complete this medication reconciliation. INCLUDED IN THIS LIST: Alphabetical list of active outpatient prescriptions dispensed from this [place] (local) and dispensed from another [place] or [facility] facility (remote) as well as inpatient orders (local, pending and active), local clinic medications, locally documented non-VA medications, and local prescriptions that have or been discontinued in the past 90 days. - All changes in medications, including all non-VA/Herbal/OTC medications were entered into [facility]S. - If there were any medications the patient should no longer take, they were discontinued. - The patient/caregiver was instructed to update this list, discard old lists, and take this list to the next appointment, whether with a VA or non-VA provider. /shruthi/ POLA HERRERA MD PHYSICIAN Signed: 11/20/2024 15:48 Receipt Acknowledged By: 11/21/2024 12:53 /es/ FARRUKH Watt [facility] Specialist 11/21/2024 08:37 /shruthi/ NIDHI MCLAUGHLIN for PRAFUL BUENROSTRO 11/21/2024 ADDENDUM STATUS: COMPLETED Medical records requested. /shruthi/ NIDHI MCLAUGHLIN Signed: 11/21/2024 08:38 ISABELA HERRERA [place]
--- OUTSIDE RECORDS SUMMARY | 2024-12-27 09:53 | XMS_ITS | Encounter Summary ---
Author Name [facility] Organization [facility] [place] Address [address] [place] [address] Care Team Providers Care Video Poker Floorman Name Role Phone DROIS WRIGHT Primary Care Provider Unavaila banner Insurance Providers: All historical and current Section [...] SUPPLEMEN TAL MEDEX 2 December 26, 2021 [id number] Alison MARTI PATIENT MEDICARE (WNR) MEDICARE (M) PART A December 26, 2021 PART A [id number] Alison MARTI PATIENT MEDICARE (WNR) MEDICARE (M) PART B December 26, 2021 PART B [id number] Alison MARTI PATIENT Selected Encounter This section includes the information on record at [place] for the Encounter. Date/Time Encounter Type Encounter Description Reason Provider Source Dec 23, 2024 03:23 PM FIT SPECTACLES MULTIFOCAL OPTOMETRY ICD-10-CM Z46.0 Encounter for fit/adjst of spectacles and contact lenses LUIS E IJMÉNEZ Encounter Template Text not used by [place] Assessments - Encounter Diagnoses This section includes the primary and secondary diagnoses documented for the Encounter. Date/Time Primary/Secondary Diagnosis Diagnosis Name Provider Source Dec 23, 2024 03:23 PM PRIMARY Encounter for fit/adjst of spectacles and contact lenses SOFIA BARTH [facility] Plan of Treatment: Future Appointments (+ 6 months) and Future Tests (+/- 45 days) The Plan of Treatment section includes future care activities for the patient from all [place] treatmentfacilities. This section includes future appointments and future orders which are active, pending or scheduled. Future Appointments This section includes appointments that were scheduled to occur 6 months from the date of the Encounter, up to a maximum of 20 appointments. The data comes from all [place] treatment facilities. Appointment Date/Time Appointment Type Appointme nt Facility Name Mar 24, 2025 01:30 PM AMBULATORY - MEDICINE [facility] Social History: Smoking Status (Most current) and Tobacco Use (All prior to encounter date) This section includes the most current, and the historical, smoking and tobacco- related health factors from the [place] facility where the Encounter took place. Current Smoking Status This section includes the most current smoking, or tobacco-related health factor, from the [place] facility where the Encounter took place. Date/Time Current Smoking Status Comment Facil ity Apr 05, 2023 02:51 PM VA-TOBACCO FORMER USER [facility] Tobacco Use History This section includes a history of the smoking, or tobacco-related health factors, that were collected on or before the date of the Encounter. The data comes from the [place] facility where the Encounter took place. Date/Time Smoking Status/Tobacco Use Comment F acility Apr 05, 2023 02:51 PM PR-TOBACCO QUIT 5 TO < 15 YRS [facility] Encounter Notes: All associated encounter notes This section contains the clinical notes associated to the Encounter. Date/Time Encounter Note(s) Provider Source Dec 23, 2024 03:23 PM OPTOMETRY NOTE: LOCAL TITLE: OPTOMETRY NOTE STANDARD TITLE: OPTOMETRY NOTE DATE OF NOTE: DEC 23, 2024@15:23 ENTRY DATE: DEC 23, 2024@15:23:58 AUTHOR: NGUYEN VILLANUEVA EXP COSIGNER: URGENCY: STATUS: COMPLETED OPTOMETRY NOTE Has ADDENDA The quote provided below is for informational purposes only. Please verify prior to the creation of a purchase order. LISBETH MARTI 3371 RX INFORMATION OD +1.25 -1.25 X90 Add:+2.75 Pzm:0.00 Dir: Prz2:0.00 Dir2: OS +2.25 -3.25 X90 Add:+2.75 Pzm:0.00 Dir: Prz2:0.00 Dir2: FITTING INFORMATION FPD: NPD: [place]:R:31.5 L:31.5 SEG HT:R:21 L:21 Tint:None Shade:None VA Billable Items FRAME: SA7 BELT [id number] Right Lens: POLY VA PROGRESSIVE 1.586 POLY Left Lens: POLY VA PROGRESSIVE 1.586 POLY KLEAR ANTI-REFLECTIVE COATING CLIN items [employer] - AR Coating [employer] - Open Market Frame 0004 - Progressive - Glass Plastic Poly /shruthi/ NGUYEN VILLANUEVA CHARGING MANIPULATOR Signed: 12/23/2024 15:24 Receipt Acknowledged By: 12/25/2024 09:39 /shruthi/ SOFIA BARTH OPTOMETRY TECH 12/25/2024 ADDENDUM STATUS: COMPLETED PDS Hat Lining Blocker fit patient with 1 pair(s) of PAL eyeglasses on 12/23/2024 as directed by provider. Optometry Health Makeup Artistry Instructor entered consult(s) for order on behalf of provider. /javi BARTH OPTOMETRY TECH Signed: 12/25/2024 09:41 NGUYEN VILLANUEVA [facility]
--- OUTSIDE RECORDS SUMMARY | 2024-12-27 09:53 | XMS_ITS ---
Author Name [facility] Organization [facility] [place] Address [address] [place] [id number] Care Team Providers Care Order Processing Specialist Name Role Phone DORIS WRIGHT Primary Care Provider Unavaila [facility] Insurance Providers: All historical and current Section [...] SUPPLEMEN TAL MEDEX 2 December 26, 2021 [id number] [phone] Alison MARTI PATIENT MEDICARE (WNR) MEDICARE (M) PART A December 26, 2021 PART A [id number] POLLYFLOR PATIENT MEDICARE (WNR) MEDICARE (M) PART B December 26, 2021 PART B [id number] Alison MARTI PATIENT Selected Encounter This section includes the information on record at [place] for the Encounter. Date/Time Encounter Type Encounter Description Reason Provider Source Dec 23, 2024 08:00 AM CONFORMITY EVALUATION AUDIOLOGY ICD-10-CM Z46.1 Encounter for fitting and adjustment of hearing aid NGUYEN GABRIEL Encounter Template Text not used by [place] Assessments - Encounter Diagnoses This section includes the primary and secondary diagnoses documented for the Encounter. Date/Time Primary/Secondary Diagnosis Diagnosis Name Provider Source Dec 23, 2024 09:56 AM PRIMARY Encounter for fitting and adjustment of hearing aid NGUYEN GABRIEL [facility] Dec 23, 2024 09:56 AM SECONDARY Sensorineural hearing loss, bilateral NGUYEN GABRIEL [facility] Plan of Treatment: Future Appointments (+ 6 months) and Future Tests (+/- 45 days) The Plan of Treatment section includes future care activities for the [facility] This section includes future appointments and future orders which are active, pending or scheduled. Future Appointments This section includes appointments that were scheduled to occur 6 months from the date of the Encounter, up to a maximum of 20 appointments. The data comes from all [place] treatment facilities. Appointment Date/Time Appointment Type Appointme nt Facility Name Mar 24, 2025 01:30 PM AMBULATORY - MEDICINE [facility] Social History: Smoking Status (Most current) and Tobacco Use (All prior to encounter date) This section includes the most current, and the historical, smoking and tobacco- related health factors from the [place] facility where the Encounter took place. Current Smoking Status This section includes the most current smoking, or tobacco-related health factor, from the [place] facility where the Encounter took place. Date/Time Current Smoking Status Comment Facil ity Apr 05, 2023 02:51 PM VA-TOBACCO FORMER USER [facility] Tobacco Use History This section includes a history of the smoking, or tobacco-related health factors, that were collected on or before the date of the Encounter. The data comes from the [place] facility where the Encounter took place. Date/Time Smoking Status/Tobacco Use Comment F acility Apr 05, 2023 02:51 PM [place]-TOBACCO QUIT 5 TO < 15 YRS [facility] Encounter Notes: All associated encounter notes This section contains the clinical notes associated to the Encounter. Date/Time Encounter Note(s) Provider Source Dec 23, 2024 07:34 AM AUDIOLOGY E & M NO TE: [facility] TITLE: AUDIOLOGY CLINIC STANDARD TITLE: AUDIOLOGY E & M NOTE DATE OF NOTE: DEC 23, 2024@07:34 ENTRY DATE: DEC 23, 2024@07:34:51 AUTHOR: NGUYEN GABRIEL COSIGNER: URGENCY: STATUS: COMPLETED Dx CODE: Z46.1- Encounter for Fitting/Programming Hearing Aid(s); H90.3- Sensorineural Hearing Loss, Bilateral APPOINTMENT TYPE: Hearing Aid Fitting SUBJECTIVE (S): The patient was seen for hearing aid fitting and issuance, unaccompanied. He had previously been evaluated and found to exhibit significant hearing loss for which amplification was recommended. is a new hearing aid user. How does the patient best learn? Verbal instruction, demonstration Does the patient have any cultural and baptist beliefs, emotional barriers, physical or cognitive limitations, and communication barriers which may impact his ability to learn? No Desire and motivation to learn? Good OBJECTIVE (O): Physical fit of hearing aids was good. Patient verified comfort. Verification of an appropriate acoustic response was obtained using Real Ear measurements (speech mapping) and NAL-NL2 targets. The patient reported good subjective benefit as well. Feedback manager public was run. Hearing aids were found to be meeting targets adequately and MPO was not exceeding estimated UCL. Settings stored in [facility]. 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 The was provided the opportunity to practice in office and reports confidence/understanding in all items reviewed. Time Spent= 20 minutes The patient was informed of and signed/agreed to [place] policy on hearing aid issuance: Yes Users are responsible for the maintenance and security of their devices. Determination of need to replace a hearing aid is made by the [place] weathercaster. Hearing aids will not be replaced in cases of neglect, abuse, or excessive loss. Items issued are for personal use only. Prognosis for successful hearing aid use is good. PLAN (P): 1. Follow-up for programming/adjustments as needed. 2. The International Outcome Inventory-Hearing Aids (IOI-MARC) will be mailed to the in four weeks. He was asked to complete and mail back to clinic after completion. 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
--- OUTSIDE RECORDS SUMMARY | 2024-12-27 09:53 | XMS_ITS | Encounter Summary ---
Author Name [facility] [place] [facility] [place] [facility] [place] Address [address] [place] [id number] Care Team Providers Care Food Service Attendant Name Role Phone DORIS WRIGHT Primary Care Provider [facility] Insurance Providers: All historical and current [...] SUPPLEMEN TAL MEDEX 2 December 26, 2021 [id number] Alison MARTI PATIENT MEDICARE (WNR) MEDICARE (M) PART A December 26, 2021 PART A [id number] Alison MARTI PATIENT MEDICARE (WNR) MEDICARE (M) PART B December 26, 2021 PART B [id number] Alison MARTI PATIENT Selected Encounter This section includes the information on record at [place] for the Encounter. Date/Time Encounter Type Encounter Description Reason Provider Source Sep 30, 2024 03:00 PM OFFICE O/P EST LOW 20 MIN PRIMARY CARE/MEDICINE ICD-10-CM E78.00 Pure hypercholesterole shelley, unspecified ROB CALVILLO Encounter Template Text not used by [place] Assessments - Encounter Diagnoses This section includes the primary and secondary diagnoses documented for the Encounter. Date/Time Primary/Secondary Diagnosis Diagnosis Name Provider Source Sep 30, 2024 04:01 PM PRIMARY Pure hypercholesterolemi a, unspecified ROB CALVILLO Sep 30, 2024 04:01 PM SECONDARY Chronic obstructive pulmonary disease, unspecified ROB CALVILLO Sep 30, 2024 04:01 PM SECONDARY Malignant neoplasm of prostate ROB CALVILLO Plan of Treatment: Future Appointments (+ 6 months) and Future Tests (+/- 45 days) The Plan of Treatment section includes future care activities for the patient from all [place] treatmentfacilities. This section includes future appointments and future orders which are active, pending or scheduled. Future Appointments This section includes appointments that were scheduled to occur 6 months from the date of the Encounter, up to a maximum of 20 appointments. The data comes from all [place] treatment facilities. Appointment Date/Time Appointment Type Appointme nt Facility Name Oct 07, 2024 02:30 PM AMBULATORY - MED[facility]INE [facility] Nov 20, 2024 09:00 AM AMBULATORY - MEDICINE [facility] Nov 25, 2024 03:00 PM [facility] Dec 23, 2024 08:00 AM [facility] Dec 23, 2024 02:00 PM [facility] Mar 24, 2025 01:30 PM [facility] Vital Signs: All taken on the encounter date This section contains inpatient and outpatient Vital Signs collected on the date of the Encounter. Date/Time Temperature Pulse Blood Pressure Respiratory Rate SP02 Pain Height Weight Body Mass Index Source Sep 30, 2024 03:32 PM 97 68 149/82 18 98 225 35 [facility] Social History: Smoking Status (Most current) and Tobacco Use (All prior to encounter date) This section includes the most current, and the historical, smoking and tobacco- related health factors from the [place] facility where the Encounter took place. Current Smoking Status This section includes the most current smoking, or tobacco-related health factor, from the [place] facility where the Encounter took place. Date/Time Current Smoking Status Diogenes yee Sep 30, 2024 03:00 PM VA-TOBACCO USE FORMER CIGARETTES [place] Tobacco Use History This section includes a history of the smoking, or tobacco-related health factors, that were collected on or before the date of the Encounter. The data comes from the [place] facility where the Encounter took place. Date/Time Smoking Status/Tobacco Use Comment F lexis Sep 30, 2024 03:00 PM VA-TOBACCO USE FORMER CIGARETTES [place] Encounter Notes: All associated encounter notes This section contains the clinical notes associated to the Encounter. Date/Time Encounter Note(s) Provider Source Oct 25, 2024 09:31 AM ADDENDUM: LOCAL TITLE: Addendum STANDARD TITLE: ADDENDUM DATE OF NOTE: OCT 25, 2024@09:31:08 ENTRY DATE: OCT 25, 2024@09:31:10 AUTHOR: PRAFUL BUENROSTRO COSIGNER: URGENCY: STATUS: COMPLETED SUPAA spoke with the . went to [facility] and had tendon surgery on elbow 10/17/24. Per , he was informed the doctor cut a nerve. He now has no feeling in his hand and fingers. would like to be seen by neurologist, and [facility] refused to give him a referral. [facility] is scheduled for a C to speak with PCP on 11/13/24. Records have been requested from [facility]. /shruthi/ PRAFUL MCLAUGHLIN Signed: 10/25/2024 09:49 Receipt Acknowledged By: 10/29/2024 14:55 /shruthi/ JOSIAH SNYDER LPN LPN 10/25/2024 14:00 /shruthi/ GENESIS NICHOLS RN REGISTERED NURSE --- Original Document --- 10/24/24 ADMINISTRATIVE NOTE: [facility] contacted by patient via [facility] re: (X) Preferred modality (X) Appointment Request: had left elbow distal tendon surgery on 17 October 2024 nerve was damaged in the process causing loss of use of left hand looking for referral to a neurologist and to have this [place] into [place] (X) Preferred dates 10/29/2024 AM, 10/29/2024 PM ==== Action taken: (X) Message to Nursing PATIENT PHONE - PHONE NUMBER [CELLULAR] - Upcoming Appointment: 03/24/2025 13:30 SPR PACT 3 PA TAHIR /shruthi/ Nikkie Munroe Lead Resilient Tile Installer Signed: 10/24/2024 08:45 Receipt Acknowledged By: 10/24/2024 09:27 /shruthi/ JOSIAH SNYDER LPN LPN 10/25/2024 14:00 /javi NICHOLS RN REGISTERED NURSE 10/24/2024 09:16 /shruthi/ PRAFUL MCLAUGHLIN 10/24/2024 ADDENDUM STATUS: COMPLETED Attaching Pact /shurthi/ JOSIAH SNYDER LPN LPN Signed: 10/24/2024 09:26 Receipt Acknowledged By: 10/24/2024 16:21 /shruthi/ Lata Silverman RN Registered Nurse (RN) 10/24/2024 ADDENDUM STATUS: COMPLETED Spoke with , advised would need MD notes and Operative report before a referral can be entered. Office notes received from [facility], per office note MD states too soon to be referred to Neurosurgeon for repair as it has only been 7 days, explained this to the , he verbalized an understanding. /shruthi/ Lata Silverman RN Registered Nurse (RN) Signed: 10/24/2024 16:21 10/25/2024 ADDENDUM STATUS: COMPLETED Spoke with . Advised he reaches out to the surgeon and report any issues post op. He verbalized understanding. /shruthi/ GENESIS NICHOLS RN REGISTERED NURSE Signed: 10/25/2024 14:00 PRAFUL BUENROSTRO Oct 24, 2024 09:25 AM ADDENDUM: LOCAL TITLE: Addendum STANDARD TITLE: ADDENDUM DATE OF NOTE: OCT 24, 2024@09:25:58 ENTRY DATE: OCT 24, 2024@09:25:59 AUTHOR: JOSIAH SNYDER COSIGNER: URGENCY: STATUS: COMPLETED Attaching Pact /shruthi/ JOSIAH SNYDER LPN LPN Signed: 10/24/2024 09:26 Receipt Acknowledged By: 10/24/2024 16:21 /shruthi/ Lata Silverman RN Registered Nurse (RN) --- Original Document --- 10/24/24 ADMINISTRATIVE NOTE: [facility] contacted by patient via [facility] re: (X) Preferred modality (X) Appointment Request: had left elbow distal tendon surgery on 17 October 2024 nerve was damaged in the process causing loss of use of left hand looking for referral to a neurologist and to have this [place] into [place] (X) Preferred dates 10/29/2024 AM, 10/29/2024 PM ==== Action taken: (X) Message to Nursing PATIENT PHONE - PHONE NUMBER [CELLULAR] - Upcoming Appointment: 03/24/2025 13:30 SPR PACT 3 PA TAHIR /shruthi/ Nikkie Munroe Lead Resilient Tile Installer Signed: 10/24/2024 08:45 Receipt Acknowledged By: 10/24/2024 09:27 /shruthi/ JOSIAH SNYDER LPN LPN * AWAITING SIGNATURE * GENESIS NICHOLS 10/24/2024 09:16 /es/ PRAFUL MCLAUGHLIN 10/24/2024 ADDENDUM STATUS: COMPLETED Spoke with , advised would need MD notes and Operative report before a referral can be entered. Office notes received from [facility], per office note MD states too soon to be referred to Neurosurgeon for repair as it has only been 7 days, explained this to the , he verbalized an understanding. /shruthi/ Lata Silverman, RN Registered Nurse (RN) Signed: 10/24/2024 16:21 JOSIAH SNYDER Oct 24, 2024 08:42 AM ADMINISTRATIVE NOT E: LOCAL TITLE: ADMINISTRATIVE NOTE STANDARD TITLE: ADMINISTRATIVE NOTE DATE OF NOTE: OCT 24, 2024@08:42 ENTRY DATE: OCT 24, 2024@08:42:34 AUTHOR: NIKKIE MUNROE EXP COSIGNER: URGENCY: STATUS: COMPLETED ADMINISTRATIVE NOTE Has ADDENDA [facility] contacted by patient via [facility] re: (X) Preferred modality (X) Appointment Request: had left elbow distal tendon surgery on 17 October 2024 nerve was damaged in the process causing loss of use of left hand looking for referral to a neurologist and to have this [place] into [facility] (X) Preferred dates 10/29/2024 AM, 10/29/2024 PM ==== Action taken: (X) Message to Nursing PATIENT PHONE - PHONE NUMBER [CELLULAR] - Upcoming Appointment: 03/24/2025 13:30 SPR PACT 3 PA TAHIR /shruthi/ Nikkie Munroe Lead Resilient Tile Installer Signed: 10/24/2024 08:45 Receipt Acknowledged By: 10/24/2024 09:27 /shruthi/ JOSIAH SNYDER LPN LPN 10/25/2024 14:00 /javi NICHOLS RN REGISTERED NURSE 10/24/2024 09:16 /shruthi/ PRAFUL MCLAUGHLIN 10/24/2024 ADDENDUM STATUS: COMPLETED Attaching Pact /shruthi/ JOSIAH SNYDER LPN LPN Signed: 10/24/2024 09:26 Receipt Acknowledged By: 10/24/2024 16:21 /shruthi/ Lata Silverman RN Registered Nurse (RN) 10/24/2024 ADDENDUM STATUS: COMPLETED Spoke with , advised would need MD notes and Operative report before a referral can be entered. Office notes received from [facility], per office note MD states too soon to be referred to Neurosurgeon for repair as it has only been 7 days, explained this to the , he verbalized an understanding. /shruthi/ Lata Silverman RN Registered Nurse (RN) Signed: 10/24/2024 16:21 10/25/2024 ADDENDUM STATUS: COMPLETED AMSA spoke with the . Altaf went to [facility] and had tendon surgery on elbow 10/17/24. Per , he was informed the doctor cut a nerve. He now has no feeling in his hand and fingers. Altaf would like to be seen by neurologist, and [facility] refused to give him a referral. [facility] is scheduled for a C to speak with PCP on 11/13/24. Records have been requested from [facility]. /shruthi/ PRAFUL MCLAUGHLIN Signed: 10/25/2024 09:49 Receipt Acknowledged By: * AWAITING SIGNATURE * JOSIAH SNYDER 10/25/2024 14:00 /javi NICHOLS RN REGISTERED NURSE 10/25/2024 ADDENDUM STATUS: COMPLETED Spoke with . Advised he reaches out to the surgeon and report any issues post op. He verbalized understanding. /javi NICHOLS RN REGISTERED NURSE Signed: 10/25/2024 14:00 NIKKIE MUNROE Oct 24, 2024 08:28 AM ADMINISTRATIVE NOT E: LOCAL TITLE: ADMINISTRATIVE NOTE STANDARD TITLE: ADMINISTRATIVE NOTE DATE OF NOTE: OCT 24, 2024@08:28 ENTRY DATE: OCT 24, 2024@08:28:34 AUTHOR: MUNROE,NIKKIE ZEINA EXP COSIGNER: URGENCY: STATUS: COMPLETED [facility] contacted by patient via [facility] re: (X) Preferred modality: Face 2 Face (X) Appointment Request: Had surgery on 10/17 tendon in left elbow keep [facility] in [facility] also some nerve pain (X) Preferred dates: 10/28/2024 PM ==== Action taken: (X) Message to Nursing for triage PATIENT PHONE - PHONE NUMBER [CELLULAR] - Upcoming Appointment: 03/24/2025 13:30 SPR PACT 3 PA /shruthi/ Nikkie Munroe Lead Resilient Tile Installer Signed: 10/24/2024 08:41 Receipt Acknowledged By: 10/24/2024 09:28 /shruthi/ JOSIAH SNYDER LPN LPN 10/25/2024 13:51 /es/ GENESIS NICHOLS RN REGISTERED NURSE NIKKIE MUNROEFIELD Sep 30, 2024 03:40 PM ADDENDUM: LOCAL TITLE: Addendum STANDARD TITLE: ADDENDUM DATE OF NOTE: SEP 30, 2024@15:40:35 ENTRY DATE: SEP 30, 2024@15:40:36 AUTHOR: AVERY QUIROS EXP COSIGNER: URGENCY: STATUS: COMPLETED msa please request colonoscopy and Pathology results from [facility] /javi QUIROS LPN LICENSED PRACTICAL NURSE Signed: 09/30/2024 15:42 Receipt Acknowledged By: 10/02/2024 14:46 /es/ VERN KYLE Advanced Resilient Tile Installer --- Original Document --- 09/30/24 CLINICAL REMINDERS/NURSING: Suicide Screen: C-SSRS Screening Model Suicide Severity Rating Scale (C-SSRS) screener 1. Over the past month, have you wished you were or wished you could go to sleep and not wake up? No 2. Over the past month, have you had any actual thoughts of killing yourself? No 3. Over the past month, have you been thinking about how you might do this? Response not required due to responses to other questions. 4. Over the past month, have you had these thoughts and had some intention of acting on them? Response not required due to responses to other questions. 5. Over the past month, have you started to work out or worked out the details of how to kill yourself? Response not required due to responses to other questions. 6. If yes, at any time in the past month did you intend to carry out this plan? Response not required due to responses to other questions. 7. In your lifetime, have you ever done anything, started to do anything, or prepared to do anything to end your life (for example, collected pills, obtained a gun, gave away valuables, went to the roof but didn't jump)? No 8. If YES, was this within the past 3 months? Response not required due to responses to other questions. BMI>30/>24.99 High Risk: Patient declines to discuss weight management. Patient declined weight discussion. Discussed revisiting at a future visit. Homelessness/Food Insecurity Screen: In the past 2 months, have you been living in stable housing that you own, rent, or stay in as part of a household? Yes - Living in stable housing. Are you worried or concerned that in the next 2 months you may NOT have stable housing that you own, rent, or stay in as part of a household? No - Not worried about housing near future The [facility] reports the following: Within the past 12 months, you worried whether your food would run out before you got money to buy more. Never true Within the past 12 months, the food you bought just didn't last and you didn't have money to get more. Never true Avg Risk Colorectal Cancer Screen: AVERAGE RISK colorectal cancer screening is due based on information available to this clinical reminder CRC screen completed elsewhere and waiting for results. Results expected: Colonoscopy Comment: completed at [facility] Depression Screening: Perform PHQ-2 A PHQ-2 screen was performed. The score was 0 which is a negative screen for depression. Over the past two weeks, how often have you been bothered by the following problems? 1. Little interest or pleasure in doing things Not at all 2. Feeling down, depressed, or hopeless Not at all Hepatitis C Testing: Patient declines HCV lab test. Reason: 'Here to [facility] HIV Screening: Patient has been offered HIV testing and has declined. I have explained that HIV testing is recommended for all adults, even if all risk factors are absent. The patient was educated on the risk of delayed screening. Pneumococcal Conjugate Vaccine (PCV15/PCV20): The patient may have been vaccinated in the past but written documentation of vaccination is not available today. Patient instructed to obtain a written record of the prior vaccine and bring it to the next appointment. Tobacco Use Screening: The patient is a former cigarette smoker. The patient has never used other types of tobacco. Influenza Immunization: The patient has received the seasonal influenza vaccine for the current season at another location. Documented: INFLUENZA, UNSPECIFIED FORMULATION Historical Date Administered: May 2024 Exact date unknown Outside Location: Outside Healthcare Provider Information Source: FROM OTHER REGISTRY Alcohol Use Screen (AUDIT-C): Alcohol Screen: SCREEN FOR ALCOHOL (AUDIT-C) An alcohol screening test (AUDIT-C) was negative (score=1). 1. How often did you have a drink containing alcohol in the past year? Consider a drink to be a 12 ounce can or bottle of regular beer, 8 ounces of malt liquor, a 5 ounce glass of table wine, or a 1.5 ounce shot of liquor (like scotch, gin, or vodka). Monthly or less 2. How many drinks containing alcohol did you have on a typical day when you were drinking in the past year? One or two drinks 3. How often did you have six or more drinks on one occasion in the past year? Never COVID-19 Immunization: Vaccine given previously - no written/electronic documentation available The patient was instructed to bring a copy of their COVID-19 vaccine information to their next appointment so that this can be accurately recorded in their [place] medical record. Tdap Immunization: The patient may have been vaccinated in the past but written documentation of vaccination is not available today. Patient instructed to obtain a written record of the prior vaccine and bring it to the next appointment. Herpes Zoster (Shingles) Vaccine: Prior Herpes Zoster vaccination The patient has been vaccinated in the past but written documentation of vaccination is not available today. Patient instructed to obtain a written record of the prior vaccine and bring it to the next appointment. Sexual Orientation: The patient thinks of their sexual orientation as: Straight or Heterosexual RHS Screen: RHS Screen Environmental Check Upon inquiry, the individual reports that the environment is safe to proceed. Informed Consent to Screen and Document The individual consents to proceed with screening. The individual consents to documentation of responses. PRIMARY SCREEN: In the past 12 months, how often did a current or former intimate partner (e.g., boyfriend, girlfriend, , , sexual partner): 1. Scream or curse at you Never 2. Insult or talk down to you Never 3. Threaten you with harm Never 4. Physically hurt you Never 5. Force or pressure you to have sexual contact against your will, or when you were unable to say no Never ?? The HITS tool (items 1-4 above) is [place] copyright protected by Celestine Sow MD, and the user has full rights to use it throughout the [place] system. PRIMARY SCREEN RESULT: The Primary Screen is NEGATIVE. The individual answered never to all forms of IPV above (i.e., answered never to all 5 items) The individual accepts education and/or resources: No EDUCATION: Other: Comments: ernst/ AVERY QUIROS LPN LICENSED PRACTICAL NURSE Signed: 09/30/2024 15:40 10/02/2024 ADDENDUM STATUS: UNSIGNED You may not VIEW this UNSIGNED Addendum. AVERY QUIROS [place] Sep 30, 2024 03:34 PM PREVENTIVE MEDICIN E NURSING NOTE: LOCAL TITLE: CLINICAL REMINDERS/NURSING STANDARD TITLE: PREVENTIVE MEDICINE NURSING NOTE DATE OF NOTE: SEP 30, 2024@15:34 ENTRY DATE: SEP 30, 2024@15:34:23 AUTHOR: AVERY QUIROS EXP COSIGNER: URGENCY: STATUS: COMPLETED CLINICAL REMINDERS/NURSING Has ADDENDA Suicide Screen: C-SSRS Screening Model Suicide Severity Rating Scale (C-SSRS) screener 1. Over the past month, have you wished you were or wished you could go to sleep and not wake up? No 2. Over the past month, have you had any actual thoughts of killing yourself? No 3. Over the past month, have you been thinking about how you might do this? Response not required due to responses to other questions. 4. Over the past month, have you had these thoughts and had some intention of acting on them? Response not required due to responses to other questions. 5. Over the past month, have you started to work out or worked out the details of how to kill yourself? Response not required due to responses to other questions. 6. If yes, at any time in the past month did you intend to carry out this plan? Response not required due to responses to other questions. 7. In your lifetime, have you ever done anything, started to do anything, or prepared to do anything to end your life (for example, collected pills, obtained a gun, gave away valuables, went to the roof but didn't jump)? No 8. If YES, was this within the past 3 months? Response not required due to responses to other questions. BMI>30/>24.99 High Risk: Patient declines to discuss weight management. Patient declined weight discussion. Discussed revisiting at a future visit. Homelessness/Food Insecurity Screen: In the past 2 months, have you been living in stable housing that you own, rent, or stay in as part of a household? Yes - Living in stable housing. Are you worried or concerned that in the next 2 months you may NOT have stable housing that you own, rent, or stay in as part of a household? No - Not worried about housing near future The reports the following: Within the past 12 months, you worried whether your food would run out before you got money to buy more. Never true Within the past 12 months, the food you bought just didn't last and you didn't have money to get more. Never true Avg Risk Colorectal Cancer Screen: AVERAGE RISK colorectal cancer screening is due based on information available to this clinical reminder CRC screen completed elsewhere and waiting for results. Results expected: Colonoscopy Comment: completed at [facility] Depression Screening: Perform PHQ-2 A PHQ-2 screen was performed. The score was 0 which is a negative screen for depression. Over the past two weeks, how often have you been bothered by the following problems? 1. Little interest or pleasure in doing things Not at all 2. Feeling down, depressed, or hopeless Not at all Hepatitis C Testing: Patient declines HCV lab test. Reason: 'Here to [facility] HIV Screening: Patient has been offered HIV testing and has declined. I have explained that HIV testing is recommended for all adults, even if all risk factors are absent. The patient was educated on the risk of delayed screening. Pneumococcal Conjugate Vaccine (PCV15/PCV20): The patient may have been vaccinated in the past but written documentation of vaccination is not available today. Patient instructed to obtain a written record of the prior vaccine and bring it to the next appointment. Tobacco Use Screening: The patient is a former cigarette smoker. The patient has never used other types of tobacco. Influenza Immunization: The patient has received the seasonal influenza vaccine for the current season at another location. Documented: INFLUENZA, UNSPECIFIED FORMULATION Historical Date Administered: May 2024 Exact date unknown Outside Location: Outside Healthcare Provider Information Source: FROM OTHER REGISTRY Alcohol Use Screen (AUDIT-C): Alcohol Screen: SCREEN FOR ALCOHOL (AUDIT-C) An alcohol screening test (AUDIT-C) was negative (score=1). 1. How often did you have a drink containing alcohol in the past year? Consider a drink to be a 12 ounce can or bottle of regular beer, 8 ounces of malt liquor, a 5 ounce glass of table wine, or a 1.5 ounce shot of liquor (like scotch, gin, or vodka). Monthly or less 2. How many drinks containing alcohol did you have on a typical day when you were drinking in the past year? One or two drinks 3. How often did you have six or more drinks on one occasion in the past year? Never COVID-19 Immunization: Vaccine given previously - no written/electronic documentation available The patient was instructed to bring a copy of their COVID-19 vaccine information to their next appointment so that this can be accurately recorded in their [place] medical record. Tdap Immunization: The patient may have been vaccinated in the past but written documentation of vaccination is not available today. Patient instructed to obtain a written record of the prior vaccine and bring it to the next appointment. Herpes Zoster (Shingles) Vaccine: Prior Herpes Zoster vaccination The patient has been vaccinated in the past but written documentation of vaccination is not available today. Patient instructed to obtain a written record of the prior vaccine and bring it to the next appointment. Sexual Orientation: The patient thinks of their sexual orientation as: Straight or Heterosexual RHS Screen: RHS Screen Environmental Check Upon inquiry, the individual reports that the environment is safe to proceed. Informed Consent to Screen and Document The individual consents to proceed with screening. The individual consents to documentation of responses. PRIMARY SCREEN: In the past 12 months, how often did a current or former intimate partner (e.g., boyfriend, girlfriend, , , sexual partner): 1. Scream or curse at you Never 2. Insult or talk down to you Never 3. Threaten you with harm Never 4. Physically hurt you Never 5. Force or pressure you to have sexual contact against your will, or when you were unable to say no Never ?? The HITS tool (items 1-4 above) is [place] copyright protected by Celestine Sow MD, and the user has full rights to use it throughout the [place] system. PRIMARY SCREEN RESULT: The Primary Screen is NEGATIVE. The individual answered never to all forms of IPV above (i.e., answered never to all 5 items) The individual accepts education and/or resources: No EDUCATION: Other: Comments: /shruthi/ AVERY QUIROS LPN LICENSED PRACTICAL NURSE Signed: 09/30/2024 15:40 09/30/2024 ADDENDUM STATUS: COMPLETED msa please request colonoscopy and Pathology results from [facility] /javi QUIROS LPN LICENSED PRACTICAL NURSE Signed: 09/30/2024 15:42 Receipt Acknowledged By: 10/02/2024 14:46 /shruthi/ VERN KYLE Advanced Resilient Tile Installer 10/02/2024 ADDENDUM STATUS: COMPLETED Colonoscopy & Pathology reports requested /javi KYLE Advanced Resilient Tile Installer Signed: 10/02/2024 14:46 10/03/2024 ADDENDUM STATUS: COMPLETED Colonoscopy GAP Reminder: Recommendations are needed in the clinical reminder system following the patient's most recent colorectal cancer screening/surveillance test (Colonoscopy, Sigmoidoscopy or CT Colonography) Prior/outside colonoscopy results: Date: April 17, 2024 PLAN: I would recommend a repeat colonoscopy in 10 years for further screening given that his last exam in 2013 was negative other than a hyperplastic polyp and a small tubular adenoma was removed back in 2007. He was advised to resume his aspirin today. He will otherwise see me on a p.r.n. basis. Colonoscopy reminder set 9 years from OCT 03, 2024. /shruthi/ Lata Silverman RN Registered Nurse (RN) Signed: 10/03/2024 10:43 AVERY QUIROSFIELD Sep 30, 2024 03:26 PM PHYSICIAN ORALIA Parham NOTE: LOCAL TITLE: PA NOTE STANDARD TITLE: PHYSICIAN FLEXBOARD OPERATOR NOTE DATE OF NOTE: SEP 30, 2024@15:26 ENTRY DATE: SEP 30, 2024@15:26:22 AUTHOR: ROB CALVILLO EXP COSIGNER: URGENCY: STATUS: COMPLETED S - 69 y/o M Allergy: NKAM MEDS: see below CC: new pt initial eval HPI: see Problem List PMH: neg CAD/AMI neg HTN +DVT, R LE One Time 2014 +COPD neg Asthma neg Hepatic Disorders neg Renal Disorders neg CVA/TIA neg Seizures neg Chronic Coagulopathy neg PUD, UGI Bleed neg Anemia, Excess Bleeding, Easy Bruising neg Blood Transfusions neg DM neg Thyroid Disorders +Prostate CA any Signif Infectious Diseases? 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, 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 [place] - No WIA - Never TBI - No [place]: 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 SH: O - coop A&Ox3 NAD W-N/H/D VS: Stable HEENT: Eyes - PERRL, anicteric OU Ears - EAC clear AU TM clear AU Oropharynx - no petechiae, uvula midline NECK: no adeno no bruits PUL: Resp full, reg, unlabored; CTA B/L COR: RRR, no M ABD: no distention no bruits no tenderness no mass/megaly RECTAL: defer is non-tender EXT: no LLE or calf tenderness INTEG: NL texture/turgor NAILS: no clubbing no spooning LABS: not done yet A/P - 1) Normotensive 2) C/V Stable - never DC 3) Neuro Stable - never CVA/TIA 4) Hypercholesterolemia - on Lipitor - on ASA 5) Normoglycemic 6) Coagulopathy - No 7) COPD - on Alb Inh 8) Urinary Incontinence: No 9) Prostate CA - sees URO as of OCT 22 MEDS: Reconciled - has list RTC APR 21 - sooner prn Fast Fast Labs Few Days Before Next Visit Depression Screening: Perform PHQ-2 A PHQ-2 screen was performed. The score was 0 which is a negative screen for depression. Over the past two weeks, how often have you been bothered by the following problems? 1. Little interest or pleasure in doing things Not at all 2. Feeling down, depressed, or hopeless Not at all Avg Risk Colorectal Cancer Screen: AVERAGE RISK colorectal cancer screening is due based on information available to this clinical reminder Prior/outside colonoscopy results: neg crc or polyp Date: July, ? Exact date is unknown Average risk screening reminder set 8 years from SEP 30, 2024. Comment: Tobacco Use Screening: The patient is a former cigarette smoker. The patient has never used other types of tobacco. Homelessness/Food Insecurity Screen: The [facility] reports the following: Within the past 12 months, you worried whether your food would run out before you got money to buy more. Never true Within the past 12 months, the food you bought just didn't last and you didn't have money to get more. Never true /es/ ROB CALVILLO PA-C STAFF PHYSICIAN FLEXBOARD OPERATOR Signed: 09/30/2024 16:02 ROB CALVILLO
--- OUTSIDE RECORDS SUMMARY | 2024-12-27 09:53 | XMS_ITS ---
Author Name [facility] [place] Address [address] [place] [address] Care Team Providers Care Pool Nurse Name Role Phone DORIS WRIGHT Primary Care Provider [facility] Insurance Providers: All historical and current Section [...] SUPPLEMEN TAL MEDEX 2 December 26, 2021 [id number] Alison MARTI PATIENT MEDICARE (WNR) MEDICARE (M) PART A December 26, 2021 PART A [id number] Alison MARTI PATIENT MEDICARE (WNR) MEDICARE (M) PART B December 26, 2021 PART B [id number] Alison MARTI PATIENT Selected Encounter This section includes the information on record at [place] for the Encounter. Date/Time Encounter Type Encounter Description Reason Provider Source Nov 25, 2024 03:00 PM HEARING AID XM&SLCTN BINAURL AUDIOLOGY ICD-10-CM H90.3 Sensorineural hearing loss, bilateral NGUYEN GABRIEL IHE Encounter Template Text not used by [place] Assessments - Encounter Diagnoses This section includes the primary and secondary diagnoses documented for the Encounter. Date/Time Primary/Secondary Diagnosis Diagnosis Name Provider Source Nov 25, 2024 03:44 PM PRIMARY Sensorineural hearing loss, bilateral [facility] Nov 25, 2024 03:44 PM SECONDARY Tinnitus, bilateral NGUYEN GABRIEL [facility] Plan of Treatment: Future Appointments (+ 6 months) and Future Tests (+/- 45 days) The Plan of Treatment section includes future care activities for the patient from all [place] [facility]. This section includes future appointments and future orders which are active, pending or scheduled. Future Appointments This section includes appointments that were scheduled to occur 6 months from the date of the Encounter, up to a maximum of 20 appointments. The data comes from all [place] treatment facilities. Appointment Date/Time Appointment Type Appointme nt Facility Name Dec 23, 2024 08:00 AM AMBULATORY - [place] [facility] Dec 23, 2024 02:00 PM [facility] Mar 24, 2025 01:30 PM [facility] Social History: Smoking Status (Most current) and Tobacco Use (All prior to encounter date) This section includes the most current, and the historical, smoking and tobacco- related health factors from the [place] facility where the Encounter took place. Current Smoking Status This section includes the most current smoking, or tobacco-related health factor, from the [place] facility where the Encounter took place. Date/Time Current Smoking Status Comment Facil ity Apr 05, 2023 02:51 PM VA-TOBACCO FORMER USER [facility] Tobacco Use History This section includes a history of the smoking, or tobacco-related health factors, that were collected on or before the date of the Encounter. The data comes from the [place] facility where the Encounter took place. Date/Time Smoking Status/Tobacco Use Comment F acility Apr 05, 2023 02:51 PM VA-TOBACCO QUIT 5 TO < 15 YRS [facility] Encounter Notes: All associated encounter notes This section contains the clinical notes associated to the Encounter. Date/Time Encounter Note(s) Provider Source Nov 25, 2024 03:05 PM AUDIOLOGY E & M NOTE: LOCAL TITLE: AUDIOLOGY CLINIC STANDARD TITLE: AUDIOLOGY E & M NOTE DATE OF NOTE: NOV 25, 2024@15:05 ENTRY DATE: NOV 25, 2024@15:05:13 AUTHOR: NGUYEN GABRIEL COSIGNER: URGENCY: STATUS: COMPLETED AUDIOLOGY CLINIC Has ADDENDA Dx CODE: H90.3-Sensorineural Hearing Loss, Bilateral APPOINTMENT TYPE: Hearing Evaluation and Hearing Aid Selection BACKGROUND/HISTORY: was seen today for an initial hearing evaluation and hearing aid selection appointment, unaccompanied. [place] reports difficulty hearing and understanding speech, especially in background noise. He reports constant bilateral tinnitus that began many years ago. He notes that the tinnitus can be very bothersome at times. He denies vertigo. 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 Medical history includes: Active problems - Computerized Problem List is the source for the followin. Obesity 2. Elevated blood-pressure reading without diagnosis of hypertension 3. Ex-tobacco user 4. Hypercholesterolemia 5. Screening for malignant neoplasm of colon done 6. Primary gout 7. Traumatic rupture of biceps tendon 8. Bilateral osteoarthritis of knees 9. Erectile Dysfunction ([facility] [id number]) 10. Exposure to potentially hazardous substance 11. COPD - Chronic Obstructive Pulmonary Disease ([facility] [id number]) 12. Prostate Cancer ([facility] [id number]) 13. SCC - Squamous cell carcinoma in situ of skin 14. History of lumbar discectomy 15. Deep vein thrombosis ASSESSMENT: Results of today's testing are as follows: Otoscopy was WNL bilaterally. Normal tympanograms obtained bilaterally. Pure tone audiometric testing under headphones in the right ear revealed normal hearing from 250-2000 Hz, sloping to a mild to moderately-severe sensorineural hearing loss from 0316-8630 Hz. Testing in the left ear revealed normal hearing from SRT WORD RECOGNITION (Recorded [place] CNC 1/2 Word List) Right 10dBHL 88% @ 70dBHL/40dBm Left 5dBHL 84% @ 70dBHL/40dBm HEARING AID SELECTION: Different hearing aid options were discussed. He uses an iPhone and is interested in BlueASYM IIIoth connectivity. He denies having a pacemaker and would prefer rechargeable devices. OTICON INTENT 1 MINIRITE-Rs were selected and ordered in [facility]. With [place]'s verbal consent, earmold impressions were taken bilaterally without incident. EDUCATION/COUNSELING: The patient was counseled re: today's hearing test results. He demonstrated satisfactory understanding of the education and plan, and was given the opportunity to ask questions throughout today's visit. PLAN: 1. RTC in 3-4 weeks for a 60 minute hearing aid fitting appointment. 2. Hearing re-evaluation in 3-5 years, or sooner if change in hearing occurs. Patient Education Education provided on the following topics: Hearing test results Education provided to: P Response to Education: VU Balbuena ____ Patient P Family F Significant Other SO Verbalizes Understanding VU Returns Demonstration RD Performs Independently PI Lacks Comprehension LC Refused Education RE Not Applicable NA /YAN Cormier, CCC-A STAFF FIELD SERVICES ANALYST Signed: 11/25/2024 15:53 12/03/2024 ADDENDUM STATUS: COMPLETED Hearing aids received and certified, upcoming appointment scheduled on 12/23/2024. /shruthi/ DANGELO NGUYEN Audiology Health Program Instructor Signed: 12/03/2024 08:35 NGUYEN GABRIEL [place] [facility]
--- OUTSIDE RECORDS SUMMARY | 2024-12-27 09:54 | XMS_ITS | Clinical Summary ---
Author Organization Formerly [facility] Address [address] [place] [id number] Care Team Providers Care Director Of Critical Care Name Role Phone Unavailable Primary Care Provider Unavailabl e Social History Tobacco Use Types Packs/Day Years Used Date Smoking Tobacco: Never Assessed Sex and Gender Information Value Date Recorded Sex Assigned at Not on file Legal Sex Male 6:54 PM EST Gender Identity Not on file Sexual Orientation Not on file Plan of Treatment Upcoming Encounters Date Type Department Care Team (Late st Contact Info) Description 01/16/2025 9:30 AM EDT [facility] [address] [place] [address] Frank Bridges MD [address] [place] [address] [place] [id number] Health Maintenance Due Date Last Done Comments Hepatitis C Virus Screening 1955 DTaP/Tdap/Td Vaccines (1 - Tdap) 01/03/1976 Colonoscopy 2002 Pneumococcal Vaccines 50+ (1 of 1 - PCV) 2007 Zoster (Shingles) Vaccine (1 of 2) 2007 COVID-19 Vaccine ( - 2023-2 5 season) 2024 Influenza Vaccine 03/28/2025 RSV Vaccine 60 years and old er and Patients (1 - 1-dose 75+ series) 01/03/2032 Hepatitis B Vaccines Aged Out No long er eligible based on patient's age to complete this topic
--- OUTSIDE RECORDS SUMMARY | 2024-12-27 09:54 | XMS_ITS ---
Author Name [facility] [place] Address [address] [place] [address] Care Team Providers Care Vegetable Sorter Name Role Phone MICHEAL JUDD Primary Care Provider [facility] Insurance Providers: All historical and current Section [...] to Policy Zhao BC[place] SUPPLEMEN IRISH MEDEX 2 December 26, 2021 [id number] Alison MARTI PATIENT MEDICARE (WNR) MEDICARE (M) PART A December 26, 2021 PART A [id number] Alison MARTI PATIENT MEDICARE (WNR) MEDICARE (M) PART B December 26, 2021 PART B [id number] Alison MARTI PATIENT Selected Encounter This section includes the information on record at [place] for the Encounter. Date/Time Encounter Type Encounter Description Reason Pro vider Source Sep 13, 2024 11:13 AM Outpatient Encounter ADMIN PAT ACTIVTIES (MASNONCT) IHE Encounter Template Text not used by [place] Plan of Treatment: Future Appointments (+ 6 months) and Future Tests (+/- 45 days) The Plan of Treatment section includes future care activities for the patient from all [place] [facility]. This section includes future appointments and future orders which are active, pending or scheduled. Future Appointments This section includes appointments that were scheduled to occur 6 months from the date of the Encounter, up to a maximum of 20 appointments. The data comes from all [place] treatment facilities. Appointment Date/Time Appointment Type Appointme nt Facility Name Sep 30, 2024 03:00 PM [facility]ORY [facility] Oct 07, 2024 02:30 PM [facility] Nov 20[facility] 2024 09:00 AM [facility] MED[facility] Nov 25, 2024 03:00 PM [facility] Dec 23, 2024 08:00 AM AMBULATORY - [facility] Dec 23, 2024 02:00 PM AMBULATORY - MEDICINE [facility] Social History: Smoking Status (Most current) and Tobacco Use (All prior to encounter date) This section includes the most current, and the historical, smoking and tobacco- related health factors from the [place] facility where the Encounter took place. Current Smoking Status This section includes the most current smoking, or tobacco-related health factor, from the [place] facility where the Encounter took place. Date/Time Current Smoking Status Comment Facil ity Apr 05, 2023 02:51 PM VA-TOBACCO FORMER USER [facility] Tobacco Use History This section includes a history of the smoking, or tobacco-related health factors, that were collected on or before the date of the Encounter. The data comes from the [place] facility where the Encounter took place. Date/Time Smoking Status/Tobacco Use Comment F acility Apr 05, 2023 02:51 PM [place]-TOBACCO QUIT 5 TO < 15 YRS [facility] Encounter Notes: All associated encounter notes This section contains the clinical notes associated to the Encounter. 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 [facility] please renew if appropriate Active Outpatient Medications (including Supplies): 1 [id number] ALBUTEROL 90MCG (CFC-F) 200D ORAL INHL E> 07-19 11 30 Qty: 1 2 [id number] ALLOPURINOL 100MG TAB 90 E> 07-19 3 90 3 [id number] ATORVASTATIN CALCIUM 40MG TAB 45 E> 07-19 3 90 4 [id number] OXYBUTYNIN CHLORIDE 5MG SA TAB 90 E> 07-19 3 90 5 [id number] SILDENAFIL CITRATE 100MG TAB 6 E> 07-19 11 6 /shruthi/ DARREL HOWARD PIT STEWARD Signed: 09/13/2024 11:16 Receipt Acknowledged By: 09/13/2024 12:48 /shruthi/ Micheal Judd DNP, VALERIE, ISAURO Primary Care Nurse Practitioner 09/13/2024 ADDENDUM STATUS: COMPLETED These medications have not been filled in over a year, he has a PCP appt on 09/30/2024 and can discuss that visit. /shruthi/ Micheal Judd DNP, VALERIE, ISAURO Primary Care Nurse Practitioner Signed: 09/13/2024 12:50 DARREL HOWARD [place] [facility]
--- OUTSIDE RECORDS SUMMARY | 2024-12-27 09:54 | XMS_ITS | Continuity of Care Document ---
Author Name [facility] Organization [facility] Care Team Providers Care Supervisor Brine Name Role Phone [facility] Unavailable Unavailable Problems Combined list of problems from Department of Defense and Veterans Affairs facilities. It does not include entries that were removed or entered in error. Problem Status Onset Date Problem Type Date of Resolution Comments Source Bilateral osteoarthritis of knees Active Condition Sep 30, 2024 Entered By: ROB CALVILLO Comment: TKR, R Side 2013; TKR, L Side 2020 (approx yrs) [place] COPD - Chronic Obstructive Pulmonary Disease ([facility] [id number]) Active Condition Mar Entered By: ABELINO SIMMS Comment: EMPHYSEMA [facility] [place] [facility] Deep vein thrombosis Active Condition Sep 30, 2024 Entered By: ROB CALVILLO Comment: DVT, R Calf approx 2014; Completed Post-DVT Regimens;Sep 30, 2024 Entered By: ROB CALVILLO Comment: Just on ASA as of OCT 22 [facility] [place] [facility] Elevated blood-pressure reading without diagnosis of hypertension Active Condition [place] Erectile Dysfunction ([facility] [id number]) Active Condition [facility] [place] [facility] Ex-tobacco user Active Condition Nov 20, 2024 Entered By: POLA ABREU Comment: quit 2012 h/o 80 PPDY [place] Exposure to potentially hazardous substance Active Condition [facility] [place] [facility] History of lumbar discectomy Active Condition [facility] [place] [facility] Hypercholesterolemia Active Condition 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 Active Condition Apr 05, 2023 Entered By: ABELINO SIMMS Comment: 2016 [facility] [place] [facility] Screening for malignant neoplasm of colon done Active Condition Sep 30, 2024 Entered By: ROB CALVILLO Comment: Last Screen Colonoscopy End of 2023: Neg CRC; Neg Polyposis;Sep 30, 2024 Entered By: ROB CALVILLO Comment: repeat 2033 [place] Traumatic rupture of biceps tendon Active Condition Sep 30, 2024 Entered By: ROB CALVILLO Comment: Completed Biceps Tendon Tear, L Arm MAY 21;Sep 30, 2024 Entered By: ROB CALVILLO Comment: Has Seen NEOS; Any Surg Still pending as of OCT 22 [place] Diagnosis: ICD-10-CM Z46.0 Encounter for fit/adjst of spectacles and contact lenses Active Diagnosis [facility] [place] [facility] Diagnosis: ICD-10-CM H53.022 Refractive amblyopia, left eye Active Diagnosis [facility] [place] [facility] Diagnosis: ICD-10-CM Z46.1 Encounter for fitting and adjustment of hearing aid Active Diagnosis [facility] [place] [facility] Diagnosis: ICD-10-CM H90.3 Sensorineural hearing loss, bilateral Active Diagnosis [facility] [place] [facility] Diagnosis: ICD-10-CM R20.2 Paresthesia of skin Active Diagnosis [place] Diagnosis: ICD-10-CM E78.00 Pure hypercholesterolemia, unspecified Active Diagnosis [place] Diagnosis: ICD-10-CM C61 Malignant neoplasm of prostate Active Diagnosis [facility] [place] [facility] Diagnosis: ICD-10-CM H61.22 Impacted cerumen, left ear Active Diagnosis [facility] [place] [facility] Diagnosis: ICD-10-CM N52.9 Male erectile dysfunction, unspecified Active Diagnosis [facility] [place] [facility] Medications Combined list of outpatient medications from Department of Defense and Veterans Affairs facilities.Medications provided include 1) outpatient medications from the last 15 months, and 2) patient-reported medications. Medication Details Route Status Patient Instructions Prescription Expires Prescription Number Last Dispense Date Ordering Provider Order Date Order Qty Source ALBUTEROL 90MCG/ACTUA T (CFC-F) INHL,ORAL,8 .5GM DOSE COUNTER INHALE 2 PUFFS BY MOUTH EVERY 4 HOURS NEEDED FOR [place]ONCHOS [place]M RESPIR ATORY (INHAL ATION) ACTIVE 10/01/2025 [id number] CHINMAY CALVILLO 2024 1 [place] ALLOPURINOL 100MG TAB TAKE ONE TABLET BY MOUTH ONCE DAILY FOR GOUT FOR GOUT ORAL ACTIVE 10/01/2025 [id number] CHINMAY CALVILLO 2024 90 [place] ASPIRIN 81MG TAB,EC TAKE ONE TABLET BY MOUTH ONCE DAILY ORAL ACTIVE TIN SIMMS 2022 [facility] ATORVASTATI N CA 40MG TAB TAKE ONE-HALF TABLET BY MOUTH ONCE DAILY FOR HIGH CHOLESTE ROL ORAL ACTIVE 10/01/2025 [id number] CHINMAY CALVILLO 2024 45 [place] MELOXICAM 15MG TAB TAKE ONE-HALF TABLET BY MOUTH ONCE DAILY FOR PAIN ORAL ACTIVE 10/01/2025 [id number] CHINMAY CALVILLO 2024 15 [place] OXYBUTYNIN CL 5MG TAB,SA TAKE ONE TABLET BY MOUTH ONCE DAILY FOR FREQUENT URINATIO N FOR BLADDER INSTABIL ITY ORAL ACTIVE 10/01/2025 [id number] CHINMAY CALVILLO 2024 90 [place] SILDENAFIL CITRATE 100MG TAB TAKE ONE TABLET BY MOUTH ONCE DAILY NEEDED FOR ERECTILE DYSFUNCT ION TAKE 1 HOUR PRIOR TO SEXUAL ACTIVITY ORAL ACTIVE 10/01/2025 [id number] 5 CHINMAY CALVILLO 2024 18 [place] Allergies, Adverse Reactions, Alerts Combined list of allergies from Department of Defense and Veterans Affairs facilities. It does not include entries that were removed or entered in error. Substance Category Reaction Severity Reaction type Status Date Reported Comments Source IODINE CONTRAST EVEN WITH PREP Propensity to adverse reactions to drug (finding) active 5 [facility] [place] [facility] SHRIMP Propensity to adverse reactions to food (finding) active [facility] Immunizations Combined list of available immunizations from the Department of Defense and Veterans Affairs facilities. Immunization Series Date Given Administered By Site Reaction Lot Number CVX Code Drug Commercial Lines Account Executive Status Comments Source INFLUENZA, UNSPECIFIED FORMULATION 2023 88 complet ed HISTORICA L INFORMATI ON - FROM OTHER [facility], [facility] INFLUENZA, HIGH-DOSE, QUADRIVALENT 2022 [place] LEFT DELTO ID [id number] 197 complet ed [facility] [place] AT [place], [facility] Results Combined list of recent chemistry, hematology and other laboratory results from Department of Defense and Veterans Affairs, ranging from 15 months to all on record, depending upon the facility. Order Name Results Value Reference Range Date Interpretation Specimen Comments Source THYROID T4 FREE(FT4 ) THYROXINE (T4) FREE [MASS/VOLU ME] IN SERUM OR PLASMA 0.94 ng/dL 0.6 - 1.6 07/19 Specimen Type: SERUM No comment entered. Ordering Provider: STEFAN WRIGHT Report Released Date/Time: Jul 05, 2023 04:19 PM Reporting Lab: [facility] [address] [facility] [address] Performing Lab: [facility] [address] [facility] [address] [facility] TSH THYROTROPI N [UNITS/VOL UME] IN SERUM OR PLASMA 1.14 u[IU]/mL 0.35 - 5.00 07/19 Specimen Type: SERUM No comment entered. Ordering Provider: STEFAN WRIGHT Report Released Date/Time: Jul 05, 2023 04:19 PM Reporting Lab: [facility] [address] [facility] [address] Performing Lab: [facility] [address] [facility] [address] [facility] BASIC METABOLI C PANEL (fasting ) UREA NITROGEN [MASS/VOLU ME] IN SERUM OR PLASMA 14 mg/dL 7 - 25 07/19 Specimen Type: SERUM No comment entered. Ordering Provider: STEFAN WRIGHT Report Released Date/Time: Jul 05, 2023 04:19 PM Reporting Lab: [facility] [address] [address] [facility]: [facility] [address] [address] [facility] BASIC METABOLI C PANEL (fasting ) GLUCOSE [MASS/VOLU ME] IN SERUM OR PLASMA 113 mg/dL 65 - 100 07/19 H Specimen Type: SERUM No comment entered. Ordering Provider: STEFAN WRIGHT Report Released Date/Time: Jul 05, 2023 04:19 PM Reporting [facility] [address] [address] Performing Lab: [facility] [address] [address] [facility] BASIC METABOLI C PANEL (fasting ) SODIUM [MOLES/VOL UME] IN SERUM OR PLASMA 139 mmol/L 135 - 145 07/19 Specimen Type: SERUM No comment entered. Ordering Provider: STEFAN WRIGHT Report Released Date/Time: Jul 05, 2023 04:19 PM Reporting Lab: [facility] [address] [address] Performing Lab: [facility]RPRINC[facility]ENTERTRN [address] [address] [facility] BASIC METABOLI C PANEL (fasting ) POTASSIUM [MOLES/VOL UME] IN SERUM OR PLASMA 4.4 mmol/L 3.5 - 5.0 07/19 Specimen Type: SERUM No comment entered. Ordering Provider: STEFAN WRIGHT Report Released Date/Time: Jul 05, 2023 04:19 PM Reporting Lab: [facility] [address] [address] Performing Lab: [facility]ENTER[address] [address] [facility] BASIC METABOLI C PANEL (fasting ) CHLORIDE [MOLES/VOL UME] IN SERUM OR PLASMA 107 mmol/L 100 - 110 07/19 Specimen Type: SERUM No comment entered. Ordering Provider: STEFAN WRIGHT Report Released Date/Time: Jul 05, 2023 04:19 PM Reporting Lab: [facility]ERN [address] [address] Performing Lab: [facility]ERN [address] [address] [facility] BASIC METABOLI C PANEL (fasting ) CARBON DIOXIDE, TOTAL [MOLES/VOL UME] IN SERUM OR PLASMA 24 meq/L 20 - 30 07/19 Specimen Type: SERUM No comment entered. Ordering Provider: STEFAN WRIGHT Report Released Date/Time: Jul 05, 2023 04:19 PM Reporting Lab: [facility]ERN [address] [address] Per[facility]: [facility] [address] [address] [facility] BASIC METABOLI C PANEL (fasting ) CREATININE [MASS/VOLU ME] IN SERUM OR PLASMA 0.98 mg/dL 0.50 - 1.40 07/19 Specimen Type: SERUM No comment entered. Ordering Provider: STEFAN WRIGHT Report Released Date/Time: Jul 05, 2023 04:19 PM Reporting Lab: [facility] [address] [address] Per[facility]: [facility] [address] [address] [facility] BASIC METABOLI C PANEL (fasting ) GLOMERULAR FILTRATION RATE/1.73 SQ M.PREDICTE D [VOLUME RATE/AREA] IN SERUM, PLASMA OR BLOOD BY CREATININE -BASED FORMULA (CKD-EPI 2020) 85 mL/min 60 07/19 Specimen Type: SERUM No comment entered. Ordering Provider: STEFAN WRIGHT Report Released Date/Time: Jul 05, 2023 04:19 PM Reporting Lab: [facility] [place] [address] [facility] [address] Performing Lab: [facility] [place] [facility] [address] [facility] [address] [facility] CBC LEUKOCYTES [#/VOLUME] IN BLOOD BY AUTOMATED COUNT 6.55 10*3/uL 4.50 - 11.00 07/19 Specimen Type: BLOOD No comment entered. Ordering Provider: STEFAN WRIGHT Report Released Date/Time: Jul 05, 2023 04:19 PM Reporting Lab: [facility] [place] [facility] [address] [facility] [address] Performing Lab: [facility] [place] [facility] [address] [facility] [address] [facility] [facility] CBC ERYTHROCYT ES [#/VOLUME] IN BLOOD BY AUTOMATED COUNT 4.91 10*6/uL 4.23 - 5.66 07/19 Specimen Type: BLOOD No comment entered. Ordering Provider: STEFAN WRIGHT Report Released Date/Time: Jul 05, 2023 04:19 PM Reporting Lab: [facility] [place] [facility] [address] [facility] [address] Performing Lab: [facility] [place] [facility] [address] [facility] [address] [facility] [place] [facility] CBC HEMOGLOBIN [MASS/VOLU ME] IN BLOOD 14.3 g/dL 12.8 - 17 07/19 Specimen Type: BLOOD No comment entered. Ordering Provider: STEFAN WRIGHT Report Released Date/Time: Jul 05, 2023 04:19 PM Reporting Lab: [facility] [place] [address] [facility] [address] Performing Lab: [facility] [place] [facility] [address] [place] [address] [facility] [place] [facility] CBC HEMATOCRIT [VOLUME FRACTION] OF BLOOD BY AUTOMATED COUNT 42.8 39.2 - 50.4 07/19 Specimen Type: BLOOD No comment entered. Ordering Provider: STEFAN WRIGHT Report Released Date/Time: Jul 05, 2023 04:19 PM Reporting Lab: [facility] [place] [facility] [address] [facility] [address] Performing Lab: [facility] [place] [facility] [address] [facility] [address] [facility] [place] [facility] CBC MCV [ENTITIC VOLUME] BY AUTOMATED COUNT 87.2 fL 82 - 99 07/19 Specimen Type: BLOOD No comment entered. Ordering Provider: STEFAN WRIGHT Report Released Date/Time: Jul 05, 2023 04:19 PM Reporting Lab: [facility] [place] [facility] [address] [facility] [address] Performing Lab: [facility] [place] [address] [address] [facility] [place] [facility] CBC MCHC [MASS/VOLU ME] BY AUTOMATED COUNT 33.4 g/dL 30.8 - 35.1 07/19 Specimen Type: BLOOD No comment entered. Ordering Provider: STEFAN WRIGHT Report Released Date/Time: Jul 05, 2023 04:19 PM Reporting Lab: [facility] [place] [facility] [address] [facility] [address] Performing Lab: [facility] [place] [address] [address] [facility] [place] [facility] CBC PLATELETS [#/VOLUME] IN BLOOD BY AUTOMATED COUNT 304 10*3/uL 140 - 360 07/19 Specimen Type: BLOOD No comment entered. Ordering Provider: STEFAN WRIGHT Report Released Date/Time: Jul 05, 2023 04:19 PM Reporting Lab: [facility] [place] [facility] [address] [facility] [address] Performing Lab: [facility] [place] [address] [address] [facility] [place] [facility] CBC ERYTHROCYT E DISTRIBUTI ON WIDTH [RATIO] BY AUTOMATED COUNT 13.2 12.0 - 16.0 07/19 Specimen Type: BLOOD No comment entered. Ordering Provider: STEFAN WRIGHT Report Released Date/Time: Jul 05, 2023 04:19 PM Reporting Lab: [facility] [place] [address] [address] Performing Lab: [facility] [place] [facility] [address] [facility] [address] [facility] W[facility] CBC MCH [ENTITIC MASS] BY AUTOMATED COUNT 29.1 pg 26.2 - 32.6 07/19 Specimen Type: BLOOD No comment entered. Ordering Provider: STEFAN WRIGHT Report Released Date/Time: Jul 05, 2023 04:19 PM Reporting Lab: [facility] [place]N [place] [address] [address] Performing Lab: [facility] [place] [place] [address] [address] [facility]RL [facility] [place] [facility] LIVER FUNCTION PROTEIN [MASS/VOLU ME] IN SERUM OR PLASMA 6.5 g/dL 6.0 - 8.3 07/19 Specimen Type: SERUM No comment entered. Ordering Provider: STEFAN WRIGHT Report Released Date/Time: Jul 05, 2023 04:19 PM Reporting Lab: [facility] [place] [address] [address] Performing Lab: [facility] [place] [address] [address] [facility] [place] [facility] LIVER FUNCTION ALBUMIN [MASS/VOLU ME] IN SERUM OR PLASMA 3.9 g/dL 3.5 - 5.0 07/19 Specimen Type: SERUM No comment entered. Ordering Provider: STEFAN WRIGHT Report Released Date/Time: Jul 05, 2023 04:19 PM Reporting Lab: [facility] [place] [address] [address] Performing Lab: [facility] [place] [facility] [address] [facility] [address] [facility] [place] [facility] LIVER FUNCTION ALKALINE PHOSPHATAS E [ENZYMATIC ACTIVITY/V OLUME] IN SERUM OR PLASMA 72 U/L 40 - 150 07/19 Specimen Type: SERUM No comment entered. Ordering Provider: STEFAN WRIGHT Report Released Date/Time: Jul 05, 2023 04:19 PM Reporting Lab: [facility] [place] [facility] [address] [facility] [address] Performing Lab: [facility] [place] [facility] [address] [facility] [address] [facility] [place] [facility] LIVER FUNCTION ASPARTATE AMINOTRANS FERASE [ENZYMATIC ACTIVITY/V OLUME] IN SERUM OR PLASMA 16 U/L 5 - 34 07/19 Specimen Type: SERUM No comment entered. Ordering Provider: STEFAN WRIGHT Report Released Date/Time: Jul 05, 2023 04:19 PM Reporting Lab: [facility] [place] [facility] [address] [facility] [address] Performing Lab: [facility] [place] [facility] [address] [facility] [address] [facility] [place] [facility] LIVER FUNCTION ALANINE AMINOTRANS FERASE [ENZYMATIC ACTIVITY/V OLUME] IN SERUM OR PLASMA 19 U/L 07/19 Specimen Type: SERUM No comment entered. Ordering Provider: STEFAN WRIGHT Report Released Date/Time: Jul 05, 2023 04:19 PM Reporting Lab: [facility] [place] [facility] [address] [facility] [address] Performing Lab: [facility] [place] [facility] [address] [facility] [address] [facility] [place] [facility] LIVER FUNCTION BILIRUBIN. TOTAL [MASS/VOLU ME] IN SERUM OR PLASMA 0.5 mg/dL 0.2 - 1.2 07/19 Specimen Type: SERUM No comment entered. Ordering Provider: STEFAN WRIGHT Report Released Date/Time: Jul 05, 2023 04:19 PM Reporting Lab: [facility] [place] [facility] [address] [facility] [address] Performing Lab: [facility] [place] [facility] [address] [facility] [address] [facility] [facility] LIPID PANEL FASTING CHOLESTERO L [MASS/VOLU ME] IN SERUM OR PLASMA 202 mg/dL 07/19 H Specimen Type: SERUM No comment entered. Ordering Provider: STEFAN WRIGHT Report Released Date/Time: Jul 05, 2023 04:19 PM Reporting Lab: [facility] [place] [facility] [address] [facility] [address] Performing Lab: [facility] [place] [facility] [address] [facility] [address] [facility]RL WSTRN [facility] LIPID PANEL FASTING TRIGLYCERI DE [MASS/VOLU ME] IN SERUM OR PLASMA 90 mg/dL 0 - 150 07/19 Specimen Type: SERUM No comment entered. Ordering Provider: STEFAN WRIGHT Report Released Date/Time: Jul 05, 2023 04:19 PM Reporting Lab: [facility] [place] [facility] [address] [facility] [address] Performing Lab: [facility] [place] [facility] [address] [facility] [address] [facility]RL WSTRN [facility] LIPID PANEL FASTING CHOLESTERO L IN LDL [MASS/VOLU ME] IN SERUM OR PLASMA BY TIESHA Becker 125 mg/dL 0 - 129 07/19 Specimen Type: SERUM No comment entered. Ordering Provider: STEFAN WRIGHT Report Released Date/Time: Jul 05, 2023 04:19 PM Reporting Lab: [facility] [place] [facility] [address] [facility] [address] Performing Lab: [facility] [place] [facility] [address] [facility] [address] [facility] [facility] LIPID PANEL FASTING CHOLESTERO L.TOTAL/CH OLESTEROL IN HDL [MASS RATIO] IN SERUM OR PLASMA 3.4 07/19 Specimen Type: SERUM No comment entered. Ordering Provider: STEFAN WRIGHT Report Released Date/Time: Jul 05, 2023 04:19 PM Reporting Lab: [facility] [address] [address] Performing Lab: [facility]ITALRVAU[facility]ERN [address] [address] [facility] LIPID PANEL FASTING CHOLESTERO L IN HDL [MASS/VOLU ME] IN SERUM OR PLASMA 59 mg/dL 40 - 60 07/19 Specimen Type: SERUM No comment entered. Ordering Provider: STEFAN WRIGHT Report Released Date/Time: Jul 05, 2023 04:19 PM Reporting Lab: [facility]ERN [address] [address] Per[facility]: [facility] [address] [address] [facility] HEMOGLOB IN A1C PANEL HEMOGLOBIN A1C/HEMOGL OBIN.TOTAL IN BLOOD BY HPLC 5.7 4.0 - 5.6 07/19 H Specimen Type: BLOOD Comment: Values obtained from A1C measurement s can vary. For atypical A1C assays, a reported value of 7.0 could actually be between 6.72 and 7.28 if measured by a reference method. A reported value of 9.0 could actually be between 8.73 and 9.27. Ref: http://www. ngsp.org/[place] Pdata.asp Ordering Provider: STEFAN WRIGHT Report Released Date/Time: Jul 05, 2023 04:19 PM Reporting Lab: [facility] [address] [address] Performing Lab: [address] [address] [facility] URINALYS IS CLEAN CATCH COLOR OF URINE Colorles s 07/19 Specimen Type: URINE Comment: If Glucose = >500 and Ketones are positive, please alert the Physician. Ordering Provider: STEFAN WRIGHT Report Released Date/Time: Jul 05, 2023 04:19 PM Reporting Lab: [facility] [place] [facility] [address] [facility] [address] Performing Lab: [facility] [place] [facility] [address] [facility] [address] [facility] [place] URINALYS IS CLEAN CATCH APPEARANCE OF URINE Clear 07/19 Specimen Type: URINE Comment: If Glucose = >500 and Ketones are positive, please alert the Physician. Ordering Provider: STEFAN WRIGHT Report Released Date/Time: Jul 05, 2023 04:19 PM Reporting Lab: [facility] [place] [facility] [address] [facility] [address] Performing Lab: [facility] [place] [facility] [address] [facility] [address] [facility] [place] [facility] URINALYS IS CLEAN CATCH GLUCOSE [MASS/VOLU ME] IN URINE NEGATIVE mg/dL 07/19 Specimen Type: URINE Comment: If Glucose = >500 and Ketones are positive, please alert the Physician. Ordering Provider: STEFAN WRIGHT Report Released Date/Time: Jul 05, 2023 04:19 PM Reporting Lab: [facility] [place] [facility] [address] [facility] [address] Performing Lab: [facility] [place] [facility] [address] [facility] [address] [facility] [place] URINALYS IS CLEAN CATCH KETONES [MASS/VOLU ME] IN URINE BY TEST STRIP NEGATIVE mg/dL 07/19 Specimen Type: URINE Comment: If Glucose = >500 and Ketones are positive, please alert the Physician. Ordering Provider: STEFAN WRIGHT Report Released Date/Time: Jul 05, 2023 04:19 PM Reporting Lab: [facility] [place] [facility] [address] [facility] [id number] Performing Lab[facility] [address] [facility] [id number] [facility] URINALYS IS CLEAN CATCH ERYTHROCYT ES [PRESENCE] IN URINE SEDIMENT BY LIGHT MICROSCOPY NEGATIVE mg/dL 07/19 Specimen Type: URINE Comment: If Glucose = >500 and Ketones are positive, please alert the Physician. Ordering Provider: STEFAN WRIGHT Report Released Date/Time: Jul 05, 2023 04:19 PM Reporting Lab[facility] [place] [facility] [address] [facility] [id number] Performing Lab: [facility] [place] [facility] [facility] [address] [facility] [address] [facility] [place] [facility] URINALYS IS CLEAN CATCH PROTEIN [MASS/VOLU ME] IN URINE BY TEST STRIP NEGATIVE mg/dL 07/19 Specimen Type: URINE Comment: If Glucose = >500 and Ketones are positive, please alert the Physician. Ordering Provider: STEFAN WRIGHT Report Released Date/Time: Jul 05, 2023 04:19 PM Reporting Lab: [facility] [place] [address] [address] Performing Lab: [place] [facility] [place] [facility] [address] [facility] [address] [facility] [place] [facility] URINALYS IS CLEAN CATCH NITRITE [PRESENCE] IN URINE NEGATIVE mg/dL 07/19 Specimen Type: URINE Comment: If Glucose = >500 and Ketones are positive, please alert the Physician. Ordering Provider: STEFAN WRIGHT Report Released Date/Time: Jul 05, 2023 04:19 PM Reporting Lab: [place] [facility] [place] [facility] [address] [facility] [address] Performing Lab: [place] [facility] [place] [facility] [address] [facility] [address] [facility] [place] [facility] URINALYS IS CLEAN CATCH BILIRUBIN. TOTAL [PRESENCE] IN URINE NEGATIVE mg/dL 07/19 Specimen Type: URINE Comment: If Glucose = >500 and Ketones are positive, please alert the Physician. Ordering Provider: STEFAN WRIGHT Report Released Date/Time: Jul 05, 2023 04:19 PM Reporting Lab: [place] [facility] [place] [facility] [address] [facility] [facility] [address] Performing Lab: [facility] [place] [facility] [address] [facility] [facility] [address] [facility] [place] [facility] URINALYS IS CLEAN CATCH SPECIFIC GRAVITY OF URINE BY REFRACTOME TRY 1.007 1.016 - 1.022 07/19 L Specimen Type: URINE Comment: If Glucose = >500 and Ketones are positive, please alert the Physician. Ordering Provider: STEFAN WRIGHT Report Released Date/Time: Jul 05, 2023 04:19 PM Reporting Lab: [facility] [place] [facility] [address] [facility] [facility] [address] Performing Lab: [facility] [place] [address] [address] [facility] [place] [facility] URINALYS IS CLEAN CATCH PH OF URINE BY TEST STRIP 6.5 5.0 - 9.0 07/19 Specimen Type: URINE Comment: If Glucose = >500 and Ketones are positive, please alert the Physician. Ordering Provider: STEFAN WRIGHT Report Released Date/Time: Jul 05, 2023 04:19 PM Reporting Lab: [facility] [place] [address] [address] Performing Lab: [facility] [place] [address] [address] [facility] [place] [facility] URINALYS IS CLEAN CATCH UROBILINOG EN [MASS/VOLU ME] IN URINE BY TEST STRIP <2.0mg/d L <2.0 - 2.0 07/19 Specimen Type: URINE Comment: If Glucose = >500 and Ketones are positive, please alert the Physician. Ordering Provider: STEFAN WRIGHT Report Released Date/Time: Jul 05, 2023 04:19 PM Reporting Lab: [facility] [place] [facility] [address] [facility] [facility] [address] Performing Lab: [facility] [place] [address] [address] [place] [facility] [facility] URINALYS IS CLEAN CATCH LEUKOCYTE ESTERASE [PRESENCE] IN URINE BY TEST STRIP NEGATIVE 07/19 Specimen Type: URINE Comment: If Glucose = >500 and Ketones are positive, please alert the Physician. Ordering Provider: STEFAN WRIGHT Report Released Date/Time: Jul 05, 2023 04:19 PM Reporting Lab: [facility] [address] [facility] [address] Performing Lab: [facility] [place] [facility] [address] [facility] [facility] [address] [facility]AU[facility] PSA PROSTATE SPECIFIC AG [MASS/VOLU ME] IN SERUM OR PLASMA 0.12 ng/mL 0.00 - 4.00 07/19 Specimen Type: SERUM No comment entered. Ordering Provider: STEFAN WRIGHT Report Released Date/Time: Jul 05, 2023 04:19 PM Reporting Lab: [facility]ERN [facility]ITALUSE[facility] [address] [facility] [address] Performing Lab: [facility]INC[facility]ENTERTRN [facility]ITALUSE[facility] [address] [facility] [facility] [address] [facility] Vital Signs Combined list of inpatient and outpatient Vital Signs from Department of Defense and Veterans Affairs, ranging from 12 months to all on record, depending upon the facility. Vital Sign Value Date Comments Source SYSTOLIC BLOOD PRESSURE 149 09/30/2024 15:32:45 [place] DIASTOLIC BLOOD PRESSURE 82 09/30/2024 15:32:45 [place] PULSE OXIMETRY 98 09/30/2024 15:32:45 [place] WEIGHT 225 09/30/2024 15[facility]32:[facility] BMI 35 kg/m2 09/30/2024 15[facility]32:45 [place] TEMPERATURE 97 09/30/2024 15:32:45 [place] PULSE 68 09/30/2024 15:32:45 [place] RESPIRATION 18 09/30/2024 15:32:45 [place] Encounters Combined list of: 1) Encounters from Department of Veterans Affairs facilities going backup to the last 18 months, not all [place] inpatient encounters are included; 2) Encounters from the Department of Defense facilities going backup to 280 months. Location Location Details Encounter Type Encounter Number Reason For Visit Attending Provider ADM Date DC Date Status Disposition Source [facility] En[facility] [id number] 07/14 [facility] [place] En[facility] [id number] 07/19 [facility] [place] OFFICE O/P NEW LOW 30-44 MIN [id number] Diagnos is: ICD-10- CM N52.9 Male erectil e dysfunc tion, unspeci fied Napoleon WRIGHT 07/19 [facility] Encounter [id number] 07/28 [facility] [place] OFF/OP EST DECEMBER X REQ PHY/QHP [id number] Diagnos is: ICD-10- CM H61.22 Impacte d cerumen , left ear ZANVETTOR, HARRIET 08/01 [facility] [place] Encounter [id number] 10/10 [facility] [place] En[facility] [id number] 04/17 [facility] Encounter [id number] 05/28 [facility] [place] Encounter [id number] 06/21 [facility] [place] En[facility] [id number] [facility] [place] Encounter [id number] 09/02 [facility] [place] Encounter [id number] [facility] [place] Encounter [id number] [facility] [place] Encounter [id number] 1.09/09 [facility] [place] Encounter [id number] 1.09/13 [facility] [place] NQHP OL DIG ASSMT&MGMT 5-10 [id number]. Diagnos is: ICD-10- CM C61 Maligna nt neoplas m of prostat e SOVEROW,CH RISTY A 09/17 [facility] [place] Encounter [id number] 09/30 [facility] [place] [facility] OFFICE O/P EST LOW 20 MIN [id number] Diagnos is: ICD-10- CM E78.00 Pure hyperch olester olemia, unspeci fied INOCENCIA CALVILLO N 09/30 [place] [facility] Out[facility] Encounter [id number] [facility] [place] Out[facility] Encounter [id number] 10/07 [facility] [place] Encounter [id number] 10/24 [facility] [place] Encounter [id number] [facility] [place] Out[facility] Encounter [id number] 10/31 [facility] [place] [facility] Out[facility] Encounter [id number] [facility] [place] [place] Outpatient Encounter [id number] Diagnos is: ICD-10- CM R20.2 Paresth esia of skin LEEANNE LOWERY 11/20 [place] [facility] HEARING AID XM&SLCTN BINAURL [id number] Diagnos is: ICD-10- CM H90.3 Sensori neural hearing loss, bilater al JOSE GABRIEL L 11/25 [facility] [place] CONFORMITY EVALUATION [id number] Diagnos is: ICD-10- CM Z46.1 Encount er for fitting and adjustm ent of hearing aid JOSE GABRIEL L 12/23 [facility] [place] OFFICE O/P NEW LOW 30 MIN [id number] Diagnos is: ICD-10- CM H53.022 Refract deion amblyop ia, left eye ETHAN JIMÉNEZ 12/23 [facility] [place] [facility] [place] [facility] FIT SPECTACLES MULTIFOCAL [id number] Diagnos is: ICD-10- CM Z46.0 Encount er for fit/adj st of spectac les and contact lenses ETHAN JIMÉNEZ 12[facility] Social History Combined list of available smoking, tobacco, and other social history from Department of Defense and Veterans Affairs facilities. Social History Type Response Date Comment [facility] e Tobacco smoking status [facility]-TOBACCO USE FORMER CIGARETTES 09/30/2024 [place] History of tobacco use [place]-TOBACCO NEVER USED OTHER TYPE 09/30/2024 [place] History of tobacco use [place]-TOBACCO FORMER USER [facility] [facility] [place] [facility] Plan of Care List of future care activities from Department of Veterans Affairs facilities. Additional future care activities may be listed in the Assessment and Plan section. Date/Time Care Activity Care Activity Detail Facili ty 03/24/2025 AMBULATORY - MEDICINE AMBULATORY - MEDICI [facility]
--- OUTSIDE RECORDS SUMMARY | 2024-12-27 09:54 | XMS_ITS ---
Author Name [facility] [place] Organization [place] Address [address] [place] [address] Care Team Providers Care Batcher Operator Name Role Phone DORIS WRIGHT [facility] Providers: All historical and current [...] SUPPLEMEN TAL MEDEX 2 December 26, 2021 [id number] Alison MARTI PATIENT MEDICARE (WNR) MEDICARE (M) PART A December 26, 2021 PART A [id number] Alison MARTI PATIENT MEDICARE (WNR) MEDICARE (M) PART B December 26, 2021 PART B [id number] Alison MARTI PATIENT Selected Encounter This section includes the information on record at [place] for the Encounter. Date/Time Encounter Type Encounter Description Reason Provider Source Dec 23, 2024 02:00 PM OFFICE O/P NEW LOW 30 MIN OPTOMETRY ICD-10-CM H53.022 Refractive amblyopia, left eye LUIS E JIMÉNEZ Encounter Template Text not used by [place] Assessments - Encounter Diagnoses This section includes the primary and secondary diagnoses documented for the Encounter. Date/Time Primary/Secondary Diagnosis Diagnosis Name Provider Source Dec 23, 2024 03:57 PM PRIMARY Refractive amblyopia, left eye TINO,LUIS E E [facility] Dec 23, 2024 03:57 PM SECONDARY Combined forms of age-related cataract, bilateral TINOLUIS E E [facility] Plan of Treatment: Future Appointments (+ 6 months) and Future Tests (+/- 45 days) The Plan of Treatment section includes future care activities for the patient from all [place] treatmentfacilities. This section includes future appointments and future orders which are active, pending or scheduled. Future Appointments This section includes appointments that were scheduled to occur 6 months from the date of the Encounter, up to a maximum of 20 appointments. The data comes from all [place] treatment facilities. Appointment Date/Time Appointment Type Appointme nt Facility Name Mar 24, 2025 01:30 PM AMBULATORY - MEDICINE [facility] Social History: Smoking Status (Most current) and Tobacco Use (All prior to encounter date) This section includes the most current, and the historical, smoking and tobacco- related health factors from the [place] facility where the Encounter took place. Current Smoking Status This section includes the most current smoking, or tobacco-related health factor, from the [place] facility where the Encounter took place. Date/Time Current Smoking Status Comment Rusty ity Apr 05, 2023 02:51 PM [place]-TOBACCO FORMER USER [facility] Tobacco Use History This section includes a history of the smoking, or tobacco-related health factors, that were collected on or before the date of the Encounter. The data comes from the [place] facility where the Encounter took place. Date/Time Smoking Status/Tobacco Use Comment F acility Apr 05, 2023 02:51 PM VA-TOBACCO QUIT 5 TO < 15 YRS [facility] Encounter Notes: All associated encounter notes This section contains the clinical notes associated to the Encounter. Date/Time Encounter Note(s) Provider Source Dec 23, 2024 02:23 PM OPTOMETRY NOTE: LOCAL TITLE: OPTOMETRY NOTE STANDARD TITLE: OPTOMETRY NOTE DATE OF NOTE: DEC 23, 2024@14:23 ENTRY DATE: DEC 23, 2024@14:23:25 AUTHOR: SHANTI JIMÉNEZ EXP COSIGNER: URGENCY: STATUS: COMPLETED Active problems - Computerized Problem List is the source for the followin. Obesity 2. Elevated blood-pressure reading without diagnosis of hypertension 3. Ex-tobacco user 4. Hypercholesterolemia 5. Screening for malignant neoplasm of colon done 6. Primary gout 7. Traumatic rupture of biceps tendon 8. Bilateral osteoarthritis of knees 9. Erectile Dysfunction ([facility] [id number]) 10. Exposure to potentially hazardous substance 11. COPD - Chronic Obstructive Pulmonary Disease ([facility] [id number]) 12. Prostate Cancer ([facility] [id number]) 13. SCC - Squamous cell carcinoma in situ of skin 14. History of lumbar discectomy 15. Deep vein thrombosis Active Outpatient Medications (including Supplies): Active Outpatient Medications Status 1) ALBUTEROL 90MCG (CFC-F) 200D ORAL INHL INHALE 2 PUFFS BY ACTIVE MOUTH EVERY 4 HOURS NEEDED Indication: FOR BRONCHOSPASM 2) ALLOPURINOL 100MG TAB TAKE ONE TABLET BY MOUTH ONCE DAILY ACTIVE Indication: FOR GOUT 3) ATORVASTATIN CALCIUM 40MG TAB TAKE ONE-HALF TABLET BY MOUTH ACTIVE ONCE DAILY Indication: FOR HIGH CHOLESTEROL 4) MELOXICAM 15MG TAB TAKE ONE-HALF TABLET BY MOUTH ONCE DAILY ACTIVE Indication: FOR PAIN 5) OXYBUTYNIN CHLORIDE 5MG SA TAB TAKE ONE TABLET BY MOUTH ONCE ACTIVE DAILY FOR BLADDER INSTABILITY Indication: FOR FREQUENT URINATION 6) SILDENAFIL CITRATE 100MG TAB TAKE ONE TABLET BY MOUTH ONCE ACTIVE DAILY NEEDED TAKE 1 HOUR PRIOR TO SEXUAL ACTIVITY Indication: FOR ERECTILE DYSFUNCTION Active Non-VA Medications Status 1) Non-VA ASPIRIN 81MG EC TAB 81MG BY MOUTH ONCE DAILY ACTIVE Indication: FOR BLOOD CLOT PREVENTION FOLLOWING PCI 7 Total Medications Allergies: IODINE CONTRAST EVEN WITH PREP, SHRIMP All medications including those prescribed by outside VA's, community providers, and all OTC meds were reviewed and reconciled with patient to the best of their abilities. This 69 year old MALE is seen today for comprehensive eye examination. Medical, eye, personal, and social history are all reviewed and is contributory to today's visit for refractive amblyopia left eye as well as early cataracts. His last eye exam was 6 to 9 months ago in the community. He notes difficulty reading small print, glasses he received at that visit. He finds he frequently has to lift up the glasses in order to read smaller print. Chief Complaint: Difficulty reading smaller print with his current glasses (-) Pain: (-) MARC: (-) Diplopia: (-) Flashes: (-) Floaters: (-) Amaurosis Fugax/Tia's: (+) Eye Injury: Multiple black eyes over the years but without complication or sequelae Foreign body removal (bug) ? eye (-) Eye Surgery: (-) TBI: Vision: With 20/20 right eye 20/40+ left eye Without Correction Pupils, EOMS, confrontation kohli are all done and shows round reactive pupils without afferent pupillary defect with full extraocular motility and full confrontation kohli to finger counting each eye Current Wear: OD: OS: Refraction: OD: +1.25 -1.25 axis 090 20/20 OS: +2.25 -3.25 axis 095 20/40+2 +2.25 add 20/40+ +2.50 add 20/25+/- +2.75 add inches Trial framed and appreciated +2.75 add understands closer working distance Tonometry: 11, 12 OD 12, 12 OS Time: 2:18 PM dilated with tropicamide 1% each eye after dilation warning given and verbal consent obtained PreTreatment IOP: OD OS Pachymetry: Anterior segment: Lids: Dermatochalasis, ptosis right and left upper lid with lower lid bags each eye Conj: Mild chronic injection each eye Cornea: Clear centrally without staining or pigment each eye AC: 3+ and quiet each eye Iris: Normal each eye Lens: 2 nuclear sclerosis with cortical clefts right eye trace posterior subcapsular changes left eye Vit: Syneresis each eye Fundus exam: Dilated: xxx Non dilated: C/D: 0.25 right eye 0.35 left eye with distinct disc margins and good color Macula: Normal each eye A/V: 1/2 each eye Vessels: Normal each eye Periphery: No holes, tears, detachments each eye Impression: Longstanding history of refractive amblyopia left eye. Anisometropic refractive error with first Rx at age 68 years old. Bilateral nuclear sclerotic and cortical cataract functioning well visually at present. No acute ocular disease. Plan: Patient education as noted above. Reviewed exam findings now. Ordered new glasses today house clear and sun. Return in 12 months or sooner if need be. Education: Discussed presence of early cataracts which is a normal age expected finding. Return to Clinic 12 months or sooner if need be. Ophthalmic medication reconciliation: He is currently not taking or prescribed any ocular medications. Total time spent: Chart review, history, examining and counseling patient as well as entering orders with medical decision making and clinical documentation 38 minutes -3 minutes for refraction equals 35 minutes. EYE: Visual Function Reminder: Normal Vision: 20/25 or better: Unspecified disorder of refraction or accommodation (367.9). Medication Reconciliation: Outpatient: Has the patient been taking medications as documented in the EMLR? YES: The patient has been taking medications as documented in the EMLR. Essential Medication List for Review used to complete this medication reconciliation. INCLUDED IN THIS LIST: Alphabetical list of active outpatient prescriptions dispensed from this VA (local) and dispensed from another VA or DoD facility (remote) as well as inpatient orders [...] whether with a VA or non-VA provider. JLV Link Data on this list may not be complete. Please check JLV. Allergies/ADRs (Tool #5) FACILITY ALLERGY/ADR -------- No Remote Allergy/ADR Data available for this patient [facility] IODINE CONTRAST EVEN WITH PREP [facility] SHRIMP Med Recon Michelle (Tool #1) INCLUDED IN THIS LIST: Alphabetical list of active outpatient prescriptions dispensed from this [place] (local) and dispensed from another [place] or [facility] facility (remote) as well as inpatient orders (local pending and active), local clinic medications, locally documented non-VA medications, and local prescriptions that have or been discontinued in the past 90 days. Non-VA Meds Last Documented On: Apr 05, 2023 NOTE The display of VA prescriptions dispensed from another [place] or [facility] facility (remote) is limited to active outpatient prescription entries matched to National Drug File at the originating site and may not include some items such as investigational drugs, compounds, etc. NOT INCLUDED IN THIS LIST: Medications self-entered by the patient into personal health records (i.e. [employer]) are NOT included in this list. Non-VA medications documented outside this [place], remote inpatient orders (regardless of status) and remote clinic medications are NOT included in this list. The patient and provider must always discuss medications the patient is taking, regardless of where the medication was dispensed or obtained. OUTPT ALBUTEROL 90MCG (CFC-F) 200D ORAL INHL (Status = Active) INHALE 2 PUFFS BY MOUTH EVERY 4 HOURS NEEDED FOR BRONCHOSPASM Rx# [id number] Last Released: 09/30/24 Qty/Days Supply: 09/26 Rx Expiration Date: 10/01/25 Refills Remainin Indication: FOR BRONCHOSPASM OUTPT ALLOPURINOL 100MG TAB (Status = Active) TAKE ONE TABLET BY MOUTH ONCE DAILY FOR GOUT FOR GOUT Rx# [id number] Last Released: 09/30/24 Qty/Days Supply: Rx Expiration Date: 10/01/25 Refills Remainin Indication: FOR GOUT Non-VA ASPIRIN 81MG EC TAB TAKE ONE TABLET BY MOUTH ONCE DAILY Indication: FOR BLOOD CLOT PREVENTION FOLLOWING PCI OUTPT ATORVASTATIN CALCIUM 40MG TAB (Status = Active) TAKE ONE-HALF TABLET BY MOUTH ONCE DAILY FOR HIGH CHOLESTEROL Rx# [id number] Last Released: 09/30/24 Qty/Days Supply: Rx Expiration Date: 10/01/25 Refills Remainin Indication: FOR HIGH CHOLESTEROL OUTPT MELOXICAM 15MG TAB (Status = Active) TAKE ONE-HALF TABLET BY MOUTH ONCE DAILY FOR PAIN Rx# [id number] Last Released: 11/23/24 Qty/Days Supply: Rx Expiration Date: 10/01/25 Refills Remainin Indication: FOR PAIN OUTPT OXYBUTYNIN CHLORIDE 5MG SA TAB (Status = Active) TAKE ONE TABLET BY MOUTH ONCE DAILY FOR FREQUENT URINATION FOR BLADDER INSTABILITY Rx# [id number] Last Released: 09/30/24 Qty/Days Supply: Rx Expiration Date: 10/01/25 Refills Remainin Indication: FOR FREQUENT URINATION OUTPT SILDENAFIL CITRATE 100MG TAB (Status = Active) TAKE ONE TABLET BY MOUTH ONCE DAILY NEEDED FOR ERECTILE DYSFUNCTION TAKE 1 HOUR PRIOR TO SEXUAL ACTIVITY Rx# [id number] Last Released: 09/30/24 Qty/Days Supply: Rx Expiration Date: 10/01/25 Refills Remainin Indication: FOR ERECTILE DYSFUNCTION SUPPLIES Declines printed copy of medication list now. /shruthi/ Shanti Jiménez OD CHIEF OF OPTOMETRY Signed: 12/23/2024 15:58 SHANTI JIÉMNEZ [facility]
[2024-12-27 10:46] LABS: Hematocrit 43.6 % (42.0-52.0); Hemoglobin 14.5 g/dl (14.0-18.0); Mean Corpuscular HGB Conc 33.3 g/dl (31.0-36.0); Mean Corpuscular Hemoglobin 29.1 pg (27.0-33.0); Mean Corpuscular Volume 87.6 fL (80.0-98.0); Mean Platelet Volume 9.8 fL (9.4-12.4); Platelet Count 279 X10*3/uL (160-400); Red Blood Count 4.98 X10*6/uL (4.60-5.80); Red Cell Distribution Width 13.6 % (11.0-16.0); White Blood Count 5.5 X10*3/uL (4.8-10.8)
[2024-12-27 11:08] LABS: Anion Gap 11 (12-20); Blood Urea Nitrogen 18 mg/dL (9-16); Carbon Dioxide 23 mmol/L (22-29); Chloride 110 mmol/L (96-108); Estimated Glomerular Filt Rate > 60; Potassium 4.3 mmol/L (3.3-5.1); Sodium 140 mmol/L (135-145)
[2024-12-27 11:13] LABS: INTERNATIONAL NORM RATIO 0.9 (0.9-1.1)
== END 2024-12-27 09:13 | disposition home or self-care (01) ==
LOC: HO.LAB 09:12
PROVIDERS: PCP Internal Medicine; Visit Provider Student in an Organized Health Care Education/Training Program
DX: I77.1 Stricture of artery (principal)
CPT/HCPCS: 36415; 80051; 82565; 84520; 85027; 85610

== ENCOUNTER 2025-01-23 09:14 | Outpatient (REF) | payer MEDICARE, SELFPAY ==
--- NOTE | ~2025-01-23 | XR_ITS ---
CLINICAL HISTORY: J44.9 - Chronic obstructive pulmonary disease, unspecified 2 view chest x-ray Comparison: None Findings: No consolidation or effusion. Normal size heart. No acute fracture. IMPRESSION: 1. No acute findings. This document has been electronically signed by: Julio Loera MD on 01/24/2025 08:54:34
[2025-01-23 12:18] LABS: Alanine Aminotransferase 26 U/L (0-40); Albumin Level 4.5 g/dL (3.5-5.0); Alkaline Phosphatase 75 U/L (39-117); Anion Gap 11 (12-20); Aspartate Amino Transferase 25 U/L (5-37); Bilirubin Total 0.6 mg/dL (0.0-1.0); Blood Urea Nitrogen 18 mg/dL (9-16); Calcium 9.2 mg/dL (8.4-10.2); Carbon Dioxide 21 mmol/L (22-29); Chloride 112 mmol/L (96-108); Cholesterol 179 mg/dL (<200); Estimated Glomerular Filt Rate > 60; Glucose Random 103 mg/dL (60-115); HDL Cholesterol 50 mg/dL (>40); LDL Cholesterol Calculated 110 mg/dL (<100); Potassium 4.2 mmol/L (3.3-5.1); Sodium 140 mmol/L (135-145); Total Protein 6.7 g/dL (6.5-8.0); Triglycerides 97 mg/dL (<150)
[2025-01-24 05:08] LABS: NT-proBNP <36 pg/mL (<125)
== END 2025-01-23 09:15 | disposition home or self-care (01) ==
LOC: HO.XRAY 09:14
PROVIDERS: PCP Internal Medicine; Visit Provider Internal Medicine
DX: R05.3 Chronic cough (principal); R06.01 Orthopnea; J44.9 Chronic obstructive pulmonary disease, unspecified; C61 Malignant neoplasm of prostate; C44.300 Unspecified malignant neoplasm of skin of unspecified part of face; M10.9 Gout, unspecified; E78.00 Pure hypercholesterolemia, unspecified; G47.00 Insomnia, unspecified; Z79.899 Other long term (current) drug therapy; Z87.891 Personal history of nicotine dependence
CPT/HCPCS: 36415; 71046; 80053; 80061; 83880; 96127; 99202

== ENCOUNTER 2025-01-23 09:14 | Outpatient (AMB) | payer MEDICARE, SELFPAY ==
[2025-01-23 09:19] VITALS: BP 130/78; PULSE 82; TEMP 36.4; O2SAT 97; BMI 37.0
--- NOTE | 2025-01-23 09:19 | A.OFFPC_ITS ---
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 Accompanied by: Self / Same As Patient Allergies shrimp [SHRIMP] Allergy (Severe, Verified 01/23/25 09:20) Diarrhea, severe vomitting Tobacco use date assessed: 01/23/25 Fall risk assessment: No Falls in past year Last assessed Fall Risk: 01/23/25 Dental Screening Dental Screen Date: 01/23/25 Did you have a dental visit in the last 12 months?: No Did you have a dental problem in the last 6 months where you did not have access to dental care?: No HPI HPI Comments History of Present Illness Details The patient is a 69 year old male with past medical history of hyperlipidemia, copd, BCC, prostate cancer, gout, ddd neck and back presenting for follow up. He was last seen in August by pcp CV: on atorvastatin. Endorses shortness of breath, orthopnea. Chronic cough MSK: Gout on allopurinol. Uric acid 7.6 Insomnia: On trazodone. Urology: History of prostate cancer. Follows with Dr Arriaga once annual. OAB on oxybutynin Follows with [place] [facility]. History of BCC Colonoscopy Dr Scott 03/2024. Repeat 10 years. ROS CONSTITUTIONAL: Denies weight loss, fever and chills. HEENT: Denies changes in vision and hearing. RESPIRATORY: Denies SOB and cough. CV: Denies palpitations and CP GI: Denies abdominal pain, nausea, vomiting and diarrhea. : Denies dysuria and urinary frequency. MSK: Denies new myalgia and joint pain. SKIN: Denies rash and pruritus. NEUROLOGICAL: Denies headache PSYCHIATRIC: Denies recent changes in mood. PHYSICAL EXAM: GENERAL: Alert and oriented x 3. NAD EYES: EOMI. Anicteric. HENT: Moist mucous membranes. No scleral icterus. No cervical lymphadenopathy. LUNGS: Clear to auscultation bilaterally. CARDIOVASCULAR: Regular rate and rhythm. No murmur. No JVD. ABDOMEN: Soft, non-tender +bs EXTREMITIES: No edema. Non-tender. SKIN: No rashes or lesions. Warm. NEUROLOGIC: No focal neurological deficits. CN II-XII grossly intact PSYCHIATRIC: Cooperative. Appropriate mood and affect [facility] Medical History Hx of radiation therapy Hand numbness Hyperlipemia Wears dentures Gout DVT (deep venous thrombosis) Hypercholesteremia COPD (chronic obstructive pulmonary disease) Disc disorder of lumbar region Skin cancer of face Prostate CA Surgical History Hx of colonoscopy History of carpal tunnel release (~2023) History of back surgery History of bilateral knee replacement H/O basal cell carcinoma excision Knee joint replacement status Family History Mother No problems noted. Father No problems noted. Social History Household Members: None Housing: House Are you a primary caretaker grounds to a significant other at home: No Do you presently have visiting nurse or other home services: No Alcohol intake: current Alcohol intake frequency: holidays/special occasions only Alcohol type: beer Patient Tobacco Use Status: Former Tobacco user Tobacco use type: Cigarette e-Cigarette/Vaping Use: Former Use service: No Current occupational status: retired Cognitive needs: No Hearing needs: No Vision needs: Yes (rx glasses) Questionnaire PHQ-9 Over the last 2 weeks, how often have you been bothered by any of the following problems? 1. Little interest or pleasure in doing things: not at all 2. Feeling down, depressed, or hopeless: not at all 3. Trouble falling or staying asleep, or sleeping too much: not at all 4. Feeling tired or having little energy: not at all 5. Poor appetite or overeating: not at all 6. Feeling bad about yourself - or that you are a failure or have let yourself or your family down: not at all 7. Trouble concentrating on things, such as reading the newspaper or watching television: not at all 8. Moving or speaking so slowly that other people could have noticed. Or the opposite - being so fidgety or restless that you have been moving around a lot more than usual: not at all 9. Thoughts that you would be better off or of hurting yourself in some way: not at all Total score: 0 Depression Screening Interpretation: Negative Depression Screening Done: Yes 60998 - PHQ-9 Billing: Yes Source: Developed by Drs. Teofilo Samayoa, Indiana Palencia, Curtis Sheridan and colleagues, with an educational arnie from [employer]. Thrive Questionnaire Date Thrive assessed: 01/23/25 I am a: Patient Within the past 12 months, did the food you bought not last and you didn't have the money to get more?: Never true Within the past 12 months, did you worry whether your food would run out before you got money to buy more?: Never true Do you have trouble paying for medicines?: No Do you have trouble getting transportation to medical appointments?: No Do you have trouble paying your heating and electricity bill?: No Do you have trouble taking care of your child, family member or friend?: No Do you have trouble with day-to-day activities such as bathing, preparing meals, shopping, managing finances, etc.?: No Are you currently unemployed and looking for a job?: No Are you interested in more education?: No THRIVE Score: 0 AUDIT C Alcohol Use Questionnaire (AUDIT-C) 1. How often do you have a drink containing alcohol?: Monthly or less 2. How many drinks containing alcohol do you have on a typical day when you are drinking?: 1 or 2 3. How often do you have six or more drinks on one occasion?: Less than monthly Total Score: 2 LIZ-7 AMB Questionnaire LIZ-7 Date LIZ - 7 assessed: 01/23/25 Feeling nervous, anxious, or on edge: 0 = Not at all Not being able to stop or control worryin = Not at all Worrying too much about different things: 0 = Not at all Trouble relaxin = Not at all Being so restless that it is hard to sit still: 0 = Not at all Becoming easily annoyed or irritable: 0 = Not at all Feeling afraid as if something awful might happen: 0 = Not at all Total LIZ-7 score (0-4 normal; 5-9 mild; 10-14 moderate; 15-21 severe): 0 Source: Developed by Nacho Leónet B.W. Talha, Curtis Sheridan and colleagues, with an educational arnie from [employer]. Physical exam (Primary Care) Vital Signs: Last Vital Signs Temp 97.5 F 01/23/25 09:19 Pulse 82 01/23/25 09:19 BP 130/78 01/23/25 09:19 Pulse Ox 97 01/23/25 09:19 Oxygen Delivery Method Room Air 01/23/25 09:19 BMI result Body Mass Index 37.0 Tobacco/Smoking Status: Tobacco use Status Tobacco use date assessed 01/23/25 01/23/25 09:21 Patient Tobacco Use Status Former Tobacco user 01/23/25 09:21 Tobacco use type Cigarette 01/23/25 09:21 e-Cigarette/Vaping Use Former Use 01/23/25 09:28 PHQ-9: PHQ-9 Score PHQ-9: Total score 0 01/23/25 09:27 Depression Screening Interpretation: Negative Thrive Assessment: Date of Thrive Assessment Date Thrive assessed 01/23/25 01/23/25 09:21 Coding Level of Care Code New Pt Level 4 (99796) Complex EM visit Add On G2211 Diagnoses Chronic cough R05.3 Cough type: chronic Orthopnea R06.01 Chronic obstructive pulmonary disease, unspecified COPD type J44.9 COPD type: unspecified COPD Prostate CA C61 Additional Codes PHQ-9 - 41882 - PHQ-9 Billing: Yes ([id number]) Assessment & Plan Assessment & Plan (1) Cough: Code(s): R05.9 - Cough, unspecified Category: Medical Qualifiers: Cough type: chronic Qualified Code(s): R05.3 - Chronic cough (2) Orthopnea: Code(s): R06.01 - Orthopnea Category: Medical (3) COPD (chronic obstructive pulmonary disease): Code(s): J44.9 - Chronic obstructive pulmonary disease, unspecified Category: Medical Qualifiers: COPD type: unspecified COPD Qualified Code(s): J44.9 - Chronic obstructive pulmonary disease, unspecified (4) Prostate CA: Code(s): C61 - Malignant neoplasm of prostate Category: Medical Plan 70 year old to establish care past medical, surgical social reviewed Chronic cough, orthopnea. check bnp cxr echo LDCT referral Orders: Orders Lipid Panel 01/23/25 C44.300 - Unspecified malignant neoplasm of skin of unspecified part of face, C61 - Malignant neoplasm of prostate, E78.00 - Pure hypercholesterolemia, unspecified, J44.9 - Chronic obstructive pulmonary disease, unspecified, M10.9 - Gout, unspecified Comprehensive Met. Panel 01/23/25 C44.300 - Unspecified malignant neoplasm of skin of unspecified part of face, C61 - Malignant neoplasm of prostate, E78.00 - Pure hypercholesterolemia, unspecified, J44.9 - Chronic obstructive pulmonary disease, unspecified, M10.9 - Gout, unspecified XR chest 2V 01/23/25 J44.9 - Chronic obstructive pulmonary disease, unspecified, R05.9 - Cough, unspecified, R06.01 - Orthopnea NT-proBNP 01/23/25 R06.01 - Orthopnea CA echo transthoracic complete 01/23/25 R06.01 - Orthopnea Referrals Lung Cancer Screening Referral Z87.891 - Personal history of nicotine dependence
--- OUTSIDE RECORDS SUMMARY | 2025-01-23 09:39 | XMS_ITS | Patient Health Record ---
Author Organization [facility] Address [address] [place] [address] Care Team Providers Care Lozenge Maker Name Role Phone Billy Santillan MD Primary Care Provider Unavaila Teofilo Krishna Unavailable [phone] Allergies No Known Allergies Reason For Referral No Information Medications Medication SIG (Take, Route, Frequency, Duration) Notes Start Date End Date Status Aspirin 81 81 MG 1 tablet Orally Once a day for 30 day(s) Active Albuterol Sulfate HFA 108 (90 Base) MCG/ACT 1 puff as needed Inhalation every 4 hrs Active Allopurinol 100 MG TAKE 1 TABLET BY [place] TH EVERY DAY Oral for 90 Active oxyBUTYnin Chloride ER 15 MG TAKE ONE TABLET BY MOUTH EVERY DAY Oral for 90 Active Atorvastatin Calcium 20 MG TAKE ONE TABL ET BY MOUTH EVERY DAY Oral for 90 Active Problems Problem Type SNOMED Code ICD Code Onset Dates Problem Status W/U Status Risk Notes Problem Colon cancer screening (323597994) Colon cancer screening (Z12.11) Active confirmed Problem History of polyp of colon (situation) (406361809) Personal history of colonic polyps (Z86.010) Active confirmed Problem Encounter for other preprocedural examination (Z01.818) Active confirmed Problem Diverticular disease of colon (038545442) Diverticulosis of large intestine without perforation or abscess without bleeding (K57.30) Active confirmed Problem Long-term current use of aspirin (328660982569835 ) Aspirin long-term use (Z79.82) Active confirmed Encounters Encounter Location Date Provider Diagnosis [facility] Outpatient [address] [place], [place] [id number] 04/17/2024 Teofilo Scott Colon cancer scree nena Z12.11 ; Personal history of colonic polyps Z86.010 ; Diverticulosis of large intestine without perforation or abscess without bleeding K57.30 and Other hemorrhoids K64.8 Assessments Encounter Date Diagnosis (ICD Code) Assessment Notes Treatment Notes Treatment Clinical Notes Section Notes 04/17/2024 Colon cancer screening (ICD-10 - Z12.11) 04/17/2024 Personal history of colonic polyps (ICD-10 - Z86.010) 04/17/2024 Diverticulosis of large intestine without perforation or abscess without bleeding (ICD-10 - K57.30) 04/17/2024 Other hemorrhoids (ICD-10 - K64.8) Plan Of Treatment Future Test Test Name Order Date COLONOSCOPY 12/26/2012 COLONOSCOPY 01/04/2024 Insurance Providers Payer Name Payer Address Payer Phone Subscriber Number Group Number Insured Name Patient Relationship to Insured Coverage Start Date Coverage End Date MEDICARE OF [place] [address] [place] [id number] LISBETH MARTI Self - patient is the insured MED[employer] ATTN CLAIMS [address] [place] [address] [phone] [id number] LISBETH MARTI Self - patient is the insured Medical (General) History Medical History History ICD Code Iwywxyxbmvudlpf-Umsndkfuxy-8/15/13 Colonoscopy 11-05-2007--1 tubular adenoma removed History of ulcers-had an EGD with Dr. Stacy Conklin [place],DM,CVA,Lung disease,renal dise ase Kidney stone Gout COPD Prostate cancer 2019--treated with XRT DVT 2014 Screening colonoscopy in November 2013 with a hyperplastic polyp removed Surgical History Surgery Date(Month/Year) Skin cancers-Basal cell/Squamous cell Knees bilateral replacements Shoulder right Lower back C-spine Left carpal tunnel surgery 2023
== END 2025-01-23 09:45 | disposition home or self-care (01) ==
LOC: HO.HMCHD 09:15
PROVIDERS: PCP Internal Medicine; Visit Provider Internal Medicine
DX: R05.3 Chronic cough (principal); R06.01 Orthopnea; J44.9 Chronic obstructive pulmonary disease, unspecified; C61 Malignant neoplasm of prostate

== ENCOUNTER → 2025-01-23 10:10 | Outpatient (BNV) | payer MEDICARE, SELFPAY | PROVIDERS: PCP Internal Medicine; Visit Provider Specialist | DX: J44.9 Chronic obstructive pulmonary disease, unspecified (principal) | CPT/HCPCS: 71046 ==

== ENCOUNTER → 2025-02-18 07:53 | Outpatient (REF) | payer MEDICARE, SELFPAY ==
--- NOTE | 2025-02-18 07:57 | CA_ITS ---
Transthoracic Echocardiogram Patient (Last, First, Middle): Gordon Parker, Gender: Male Date of : 1955 Age: 70 Procedure Date: 02/18/2025 Procedure Type: Transthoracic Echocardiogram Location: OP Height: 170.18 cm Weight: 107.05 kg BSA: 2.17 m2 Heart Rate: 75 bpm BP: 130 / 78 mmHg Dog Sitter: SB Referring MD: Amber Covarrubias MD Symptoms: R06.01 - Orthopnea Study Quality: Fair ECG Rhythm: Sinus Conclusions: - The left ventricular systolic function is normal. The calculated ejection fraction is 66% by biplane method. - No obvious valvular pathology seen on this study. Findings Procedure Information The quality of the study was technically difficult. The study quality is limited by lung artifact. Left Ventricle Normal left ventricular cavity size. There is mildly increased left ventricular wall thickness. The left ventricular systolic function is normal. The calculated ejection fraction is 66% by biplane method. There is no evidence of regional wall motion abnormalities. Diastolic function is normal for age. Right Ventricle Mildly increased right ventricular cavity size. There is normal right ventricular systolic function. Atria Both atria are normal in size. Aortic Valve There is a normal trileaflet aortic valve. There is no aortic valve stenosis. There is no aortic valve regurgitation. Mitral Valve The mitral valve appears normal. There is no mitral valve regurgitation. There is no mitral valve stenosis. Pulmonic Valve The pulmonic valve is likely normal. Tricuspid Valve Normal tricuspid valve structure. There is trace tricuspid valve regurgitation. There is no evidence of pulmonary hypertension. Great Vessels The asc aorta is normal in size. Venous The inferior vena cava is normal in size and collapses greater than 50% with inspiration. Pericardium/Pleural There is a trivial pericardial effusion. Prior Study Comparison No prior study available for comparison. Recommendations, Care & Conclusions No obvious valvular pathology seen on this study. Measurements 2D Linear Measurements IVSd: 1.06 0.6-0.9/0.6-1.0 cm LVIDd: 4.40 3.9-5.3/4.2-5.9 cm LVIDd Index: 2.03 2.4-3.2/2.2-3.1 cm/m2 LVIDs: 2.81 2.0-3.6 cm LVPWd: 1.03 0.7-1.1 cm LA Diam: 3.30 2.7-3.8/3.0-4.0 cm LAIDs Index: 1.52 1.5-2.3 cm/m2 LV Mass: 195.70 67-162/88-224 g LV Mass Index: 90.19 43-95/49-115 g/m2 LVOT Diam: 2.00 3.0+(-)1.3 cm 2D Systolic Function EF 4C: 68.10 >55% EF 2C: 63.40 >55% EF BiP: 65.70 >55% Mitral Valve MV Pk E: 0.58 MV PK A: 0.69 MV Decel Time: 176.00 E/A: 0.80 E'Lateral: 8.27 E'Medial: 6.96 E/E' Med: 8.30 E/E' Lat: 7.00 PHT: 52.00 MVA PHT: 4.23 [place]: 3.28 Aortic Valve AoV Pk Toro: 1.22 AoV Pk Grad: 6.00 CEZAR: 2.78 LVOT LVOT Pk Toro: 1.05 LVOT Mn Toro: 0.74 LVOT VTI: 0.20 LVOT Pk Grad: 4.00 LVOT Mn Grad: 2.00 LVOT Diam: 2.00 LVOT Area: 3.14 Diastolic Function MV Pk E: 0.58 MV Pk A: 0.69 E/A: 0.80 E'Medial: 6.96 E/E' Med: 8.30 E' Laterial: 8.27 E/E' Lat: 7.00 Right Ventricle TAPSE (mm): 22.80 TVS' Toro: 12.50 Tricuspid Valve RA Press: 3.00 Great Vessels Aorta Sinus of Valsalva: 3.30 2.0-3.5 cm Ao Asc: 3.20 2.1-3.4 cm Pulmonary Valve PV Pk Toro: 1.98 PV Min Toro: 1.25 Peak PV Grad: 16.00 PV Mn Grad: 8.00 Updated in Other Vendor System with Status of Final Juan Herring MD electronically signed on 02/19/2025 9:51:46 AM with status of Final
--- OUTSIDE RECORDS SUMMARY | 2025-02-18 07:58 | XMS_ITS | Patient Health Record ---
Author Organization [facility] Address [address] [place] [address] Care Team Providers Care Beef Breaker Name Role Phone Billy Santillan MD Primary Care Provider UnavailTeofilo Chen Unavailable [phone] Allergies No Known Allergies Reason For Referral [...] Status Risk Notes Problem Colon cancer screening (980051788) Colon cancer screening (Z12.11) Active confirmed Problem History of polyp of colon (situation) (062333748) Personal history of colonic polyps (Z86.010) Active confirmed Problem Pre-procedure evaluation check (625447427) Encounter for other preprocedural examination (Z01.818) Active confirmed Problem Diverticular disease of colon (456452428) Diverticulosis of large intestine without perforation or abscess without bleeding (K57.30) Active confirmed Problem Long-term current use of aspirin (538513026188509 ) Aspirin long-term use (Z79.82) Active confirmed Encounters Encounter Location Date Provider Diagnosis [facility] Outpatient [address] [place] [phone] 04/17/2024 Teofilo Scott Colon cancer scree nena [...] Date MEDICARE OF [place] [address] [place] [address] [id number] LISBETH MARTI Self - patient is the insured [employer] ATTN CLAIMS [address] [place] [address] [phone] [id number] LISBETH MARTI Self - patient is the insured Medical (General) History Medical History History ICD Code Xzzgesycdyotuqf-Encavmaffj-6/15/13 Colonoscopy 11-05-2007--1 tubular adenoma removed History of ulcers-had an EGD with Dr. Stacy Conklin [place],DM,CVA,Lung disease,renal dise ase Kidney stone Gout COPD Prostate cancer 2019--treated with XRT DVT 2014 Screening colonoscopy in November 2013 with a hyperplastic polyp removed Surgical History Surgery Date(Month/Year) Skin cancers-Basal cell/Squamous cell Knees bilateral replacements Shoulder right Lower back C-spine Left carpal tunnel surgery 2023
== END ==
LOC: HO.CARD 07:53
PROVIDERS: PCP Internal Medicine; Visit Provider Internal Medicine
DX: R06.01 Orthopnea (principal)
CPT/HCPCS: 93306

== ENCOUNTER → 2025-02-18 07:57 | Outpatient (BNV) | payer MEDICARE, SELFPAY | PROVIDERS: PCP Internal Medicine; Visit Provider Internal Medicine | DX: R06.01 Orthopnea (principal) | CPT/HCPCS: 93306 ==

== ENCOUNTER 2025-07-28 14:50 | Outpatient (REF) | payer MEDICARE, SELFPAY ==
[2025-07-28 16:07] LABS: Hematocrit 43.7 % (42.0-52.0); Hemoglobin 14.8 g/dl (14.0-18.0); Mean Corpuscular HGB Conc 33.9 g/dl (31.0-36.0); Mean Corpuscular Hemoglobin 29.1 pg (27.0-33.0); Mean Corpuscular Volume 85.9 fL (80.0-98.0); NRBC Abs Auto 0.000 X10*3/uL (0.0-0.012); NRBC Pct Auto 0.0 /100WBC (0.0-0.2); Platelet Count 295 X10*3/uL (160-400); Red Blood Count 5.09 X10*6/uL (4.60-5.80); White Blood Count 6.1 X10*3/uL (4.8-10.8)
[2025-07-28 16:27] LABS: Alanine Aminotransferase 25 U/L (0-40); Albumin Level 4.4 g/dL (3.5-5.0); Alkaline Phosphatase 87 U/L (39-117); Anion Gap 13 (12-20); Aspartate Amino Transferase 27 U/L (5-37); Blood Urea Nitrogen 18 mg/dL (9-16); Calcium 8.8 mg/dL (8.4-10.2); Carbon Dioxide 20 mmol/L (22-29); Chloride 114 mmol/L (96-108); Estimated Glomerular Filt Rate > 60; Potassium 3.9 mmol/L (3.3-5.1); Sodium 143 mmol/L (135-145); Total Protein 6.7 g/dL (6.5-8.0)
[2025-07-28 16:33] LABS: INTERNATIONAL NORM RATIO 0.8 (0.9-1.1); Partial Thromboplastin Time 28.4 SEC (26.7-34.1); Prothrombin Time 10.1 SEC (11.2-13.5)
== END 2025-07-28 14:51 | disposition home or self-care (01) ==
LOC: HO.LAB 14:50
PROVIDERS: PCP Physician Assistant Medical; Visit Provider Physician Assistant Medical
DX: Z01.818 Encounter for other preprocedural examination (principal); Z79.01 Long term (current) use of anticoagulants; G56.00 Carpal tunnel syndrome, unspecified upper limb
CPT/HCPCS: 36415; 80053; 85027; 85610; 85730; 99212

== ENCOUNTER 2025-08-04 08:50 | Outpatient (REF) | payer MEDICARE, SELFPAY | END 2025-08-04 08:51 | disposition home or self-care (01) | LOC: HO.LAB 08:50 | PROVIDERS: PCP Physician Assistant Medical; Visit Provider Physician Assistant Medical | DX: R73.9 Hyperglycemia, unspecified (principal); E66.9 Obesity, unspecified; M79.642 Pain in left hand; Z68.35 Body mass index [BMI] 35.0-35.9, adult | CPT/HCPCS: 36415; 82947; 83036; 99212 ==